=== PATIENT | male | born 1985 | race Caucasian/White ===

== ENCOUNTER 2022-05-05 17:08 | Inpatient (IN) ==
--- NOTE | 2022-05-05 17:23 | ED Triage Note ---
Date of Service May 05, 2022 History of Present Illness This patient was briefly evaluated while in triage. An abbreviated physical exam was performed. This patient is a 36-year-old Male who presents to the ED for evaluation of HTN, sent by Dr. Alcaraz high blood pressure, had echo at [facility] and was sent by cards due to elevated blood pressure no CP, no SOB taking lisinopril and HCTZ Physical Exam GENERAL: NAD, hypertensive CARDIOVASCULAR: RRR RESPIRATORY: CTA ABDOMEN: BS x 4. Nontender to palpation. Initial orders for labs and / or imaging were placed and patient was placed in the waiting area until a bed is available. Please see further documentation for the full ED course. MDM / Impression Impression Impression: Hypertensive urgency, Elevated troponin I level, LVH (left ventricular hypertrophy), Abnormal EKG
[2022-05-05] MEDS ORDERED: METOPROLOL TARTRATE 1 MG/ML VIAL IV STA (18:19)
--- NOTE | 2022-05-05 18:28 | Emergency Department Note ---
Impression & Plan Hypertensive urgency, Elevated troponin I level, LVH (left ventricular hypertrophy), Abnormal EKG ED Provider Note NAME: TRISHA ELISE AGE: 36 SEX: M : 1985 ARRIVES VIA: Walk-In INFORMANT: Patient, ED PROVIDER(S): Trisha Berger DO CHIEF COMPLAINT: Hypertensive urgency HPI: The patient is a 36-year-old male who does of a history of hypertension who presented to the emergency department for an evaluation of elevated blood pressure. The patient was seen by his primary hat finisher. At that time he was found to have a very elevated blood pressure. He was sent to the emergency department for further evaluation. At this time the patient denies having any chest pain or difficulty breathing. He notices no swelling in his legs. He denies having any back pain. He states he takes 2 different blood pressure medications and he has been compliant with his outpatient medication regimen. The patient currently takes metformin lisinopril HCTZ and omeprazole. ROS: See above HPI for pertinent positives & negatives. A total of 10 systems reviewed and were otherwise negative. PAST MEDICAL HISTORY: See Below PAST SURGICAL HISTORY: See Below FAMILY HISTORY: See Below SOCIAL HISTORY: See Below HOME MEDICATIONS: See Below ALLERGIES: See Below VITALS: See Below PHYSICAL EXAMINATION: GENERAL: Patient is awake alert in no acute distress patient is resting comfortably and showing no signs of anxiety EYES: The conjunctivae are clear. The pupils are round and reactive. EARS, NOSE, MOUTH AND THROAT: The nose is without any evidence of any deformity. NECK: The neck is nontender and supple. RESPIRATORY: Normal respiratory effort is noted there is no evidence of wheezing rhonchi or rales CARDIOVASCULAR: Regular rate and rhythm noted there no murmurs rubs or gallops normal S1 normal S2. GASTROINTESTINAL: The abdomen is soft. Abdomen is nontender. MUSCULOSKELETAL/EXTREMITIES: There is no evidence of gross deformity full range of motion is noted in the hips and shoulders. SKIN: There is no obvious evidence of any rash. There are no petechiae, pallor or cyanosis noted. NEUROLOGIC: Patient is awake alert and oriented x3 MEDICAL DECISION MAKING: The patient is a 36-year-old male who has a history of hypertension who presented to the emergency department for an evaluation of elevated blood pressure. The patient's had accelerated blood pressure elevation of the course of the last 24 hours. The patient was seen by his hat finisher. He had an echocardiogram. He was noted to have worsening concentric LVH and some findings were worrisome so the patient was sent to the emergency department by his hat finisher for further evaluation as well as blood pressure control. He was given multiple doses of IV beta-blockers in the emergency department. I discussed the patient's laboratory and radiographic studies with him. He was found to have a mild elevation in his high-sensitivity troponin. For this reason I discussed this case with the on-call [facility]. They have agreed to evaluate the patient in the emergency department for further management and disposition. Triage Nursing notes reviewed. Prior medical records reviewed Vital Signs: reviewed and remarkable for elevated blood pressure. Differential diagnosis: Benign hypertension, hypertensive emergency, cardiovascular pathology, toxicologic, pheochromocytoma, electrolyte abnormality, renal disease, endorgan damage, as well as other pathologies. ER treatment provided: See below Diagnostics interpreted by me: ECG: EKG was obtained in the emergency department. My interpretation is normal sinus rhythm at 91 bpm. There is no ectopy. LVH was suggested by voltage criteria. There is diffuse ST depressions noted. This was compared to a trac ing from February 23, 2014. The LVH does appear to be increased compared to the previous tracing. Cardiac Monitoring: An order was placed for continuous cardiac monitoring. The monitor shows a rate of 92 bpm with sinus rhythm. Laboratory studies: As stated above and show below. Imaging studies: See below. Radiographic imaging was reviewed by myself Consultation(s): I discussed this case with Dr. Whitfield who is on-call for the [facility] group. ED COURSE: Procedures: none Critical Care: I have personally spent greater than 45 minutes of critical care time in the direct management of this patient. This includes bedside care, interpretation of diagnostic studies, and testing, discussion with consultants, patient, and fa [facility] members, and other required patient management activities. This 45 minutes is in excess of all separately billable procedures. Past Med/Surg History Medical History HTN (hypertension) Surgical History No pertinent past surgical history Social History Smoking Status: Never smoker Preferred Language: Sinhala Feels Safe at Home: Yes Allergies Allergies Allergy/AdvReac Type Severity Reaction Status Date / Time No Known Allergies Verified 05/05/22 19:44 Home Meds Home Medications Medication Instructions Recorded Confirmed famotidine 20 mg tablet 20 mg PO DAILY PRN 05/05/22 05/05/22 INDIGESTION/HEARTBURN fluticasone propionate 50 2 spray intranasal DAILY PRN 05/05/22 05/05/22 mcg/actuation nasal Congestion spray,suspension hydrochlorothiazide 25 mg tablet 25 mg PO DAILY 05/05/22 05/05/22 lisinopril 20 mg tablet 20 mg PO DAILY 05/05/22 05/05/22 metformin 500 mg tablet 500 mg PO BID 05/05/22 05/05/22 Results & Data (ED) Vital Signs Vital Signs - 24 hr 05/05/22 17:21 05/05/22 18:25 05/05/22 18:21 Temperature 36.5 C Temperature Source Temporal Artery Scan Pulse Rate 103 H 99 H 91 H Pulse Rate from SpO2 Sensor Respiratory Rate 20 Respiratory Effort / Characteristics Non-Labored Spontaneous Respiratory Depth Normal Respiratory Pattern Regular Blood Pressure 233/147 H 233/147 H Blood Pressure Mean 175 Blood Pressure Position Sitting Pulse Oximetry 96 Oxygen Delivery Method Room Air Sepsis Recent Fever Within 48 Hours No Sepsis New/Unexplained Change in Mental Status No Sepsis Action Taken by Nursing No Action Required 05/05/22 18:21 05/05/22 18:30 05/05/22 18:31 Temperature Temperature Source Pulse Rate 84 77 82 Pulse Rate from SpO2 Sensor 85 85 82 Respiratory Rate 17 Respiratory Effort / Characteristics Respiratory Depth Respiratory Pattern Blood Pressure Blood Pressure Mean Blood Pressure Position Pulse Oximetry 96 96 96 Oxygen Delivery Method Sepsis Recent Fever Within 48 Hours Sepsis New/Unexplained Change in Mental Status Sepsis Action Taken by Nursing 05/05/22 18:31 05/05/22 19:00 05/05/22 19:11 Temperature Temperature Source Pulse Rate 84 Pulse Rate from SpO2 Sensor 84 Respiratory Rate Respiratory Effort / Characteristics Respiratory Depth Respiratory Pattern Blood Pressure 255/132 H Blood Pressure Mean 173 201 Blood Pressure Position Pulse Oximetry 96 Oxygen Delivery Method Sepsis Recent Fever Within 48 Hours Sepsis New/Unexplained Change in Mental Status Sepsis Action Taken by Nursing 05/05/22 19:11 05/05/22 19:27 05/05/22 19:27 Temperature Temperature Source Pulse Rate 87 79 Pulse Rate from SpO2 Sensor Respiratory Rate 16 15 Respiratory Effort / Characteristics Respiratory Depth Respiratory Pattern Blood Pressure 230/134 H Blood Pressure Mean 166 Blood Pressure Position Pulse Oximetry Oxygen Delivery Method Sepsis Recent Fever Within 48 Hours Sepsis New/Unexplained Change in Mental Status Sepsis Action Taken by Nursing 05/05/22 19:30 05/05/22 19:30 05/05/22 20:00 Temperature Temperature Source Pulse Rate 80 84 Pulse Rate from SpO2 Sensor Respiratory Rate 13 17 Respiratory Effort / Characteristics Respiratory Depth Respiratory Pattern Blood Pressure 245/139 H Blood Pressure Mean 174 Blood Pressure Position Pulse Oximetry Oxygen Delivery Method Sepsis Recent Fever Within 48 Hours Sepsis New/Unexplained Change in Mental Status Sepsis Action Taken by Nursing 05/05/22 20:14 05/05/22 20:14 05/05/22 20:30 Temperature Temperature Source Pulse Rate 87 89 Pulse Rate from SpO2 Sensor Respiratory Rate 16 12 Respiratory Effort / Characteristics Respiratory Depth Respiratory Pattern Blood Pressure 240/143 H Blood Pressure Mean 175 Blood Pressure Position Pulse Oximetry Oxygen Delivery Method Sepsis Recent Fever Within 48 Hours Sepsis New/Unexplained Change in Mental Status Sepsis Action Taken by Nursing 05/05/22 20:57 05/05/22 20:57 05/05/22 21:00 Temperature Temperature Source Pulse Rate 86 Pulse Rate from SpO2 Sensor Respiratory Rate 13 Respiratory Effort / Characteristics Respiratory Depth Respiratory Pattern Blood Pressure 240/142 H 260/143 H Blood Pressure Mean 174 182 Blood Pressure Position Pulse Oximetry Oxygen Delivery Method Sepsis Recent Fever Within 48 Hours Sepsis New/Unexplained Change in Mental Status Sepsis Action Taken by Nursing 05/05/22 21:00 Temperature Temperature Source Pulse Rate 92 H Pulse Rate from SpO2 Sensor Respiratory Rate 17 Respiratory Effort / Characteristics Respiratory Depth Respiratory Pattern Blood Pressure Blood Pressure Mean Blood Pressure Position Pulse Oximetry Oxygen Delivery Method Sepsis Recent Fever Within 48 Hours Sepsis New/Unexplained Change in Mental Status Sepsis Action Taken by [facility] Medications Current Medication List: was personally reviewed by me Laboratory Data Attestation: I reviewed the patient's lab results. 05/05/22 17:59 05/05/22 17:59 Lab Results 05/05/22 05/05/22 05/05/22 Range/Units 17:59 17:59 19:07 WBC 11.79 H (4.8-10.8) K/ul RBC 5.99 (4.70-6.10) M/uL Hgb 15.4 (14.0-18.0) g/dl Hct 47.0 (42.0-52.0) % MCV 78.5 L (80.0-100.0) fL MCH 25.7 (25.0-34.0) pg MCHC 32.8 (32.0-36.0) g/dL RDW Std Deviation 37.2 (36.4-46.3) fL RDW Coeff of Jorge Luis 13.1 (11.5-14.5) % Plt Count 367 (130-400) K/uL MPV 9.3 L (9.4-12.4) fL Immature Gran % (Auto) 0.4 % Neut % (Auto) 71.5 % Lymph % (Auto) 16.7 % [place] % (Auto) 8.3 % Eos % (Auto) 2.3 % Baso % (Auto) 0.8 % Neut # (Auto) 8.43 H (1.40-6.50) K/uL Lymph # (Auto) 1.97 (1.2-3.4) K/uL [place] # (Auto) 0.98 H (0.11-0.59) K/uL Eos # (Auto) 0.27 (0-0.50) K/uL Baso # (Auto) 0.09 (0-0.2) K/uL Immature Gran # (Auto) 0.05 (0.01-0.20) K/uL Sodium 136 (136-145) mmol/L Potassium 3.7 (3.5-5.1) mmol/L Chloride 101 (98-107) mmol/L Carbon Dioxide 27 (21-32) mmol/L Anion Gap 8 (3-11) BUN 15 (6-23) mg/dl Creatinine 0.86 (0.6-1.4) mg/dl Est Cr Clr Drug Dosing 197.4 ml/min Est GFR ( Amer) 129.3 ml/min Est GFR (Non-Af Amer) 111.6 ml/min BUN/Creatinine Ratio 17.4 (10-20) Glucose 143 H (70-99(Fasting)) mg/dl Calcium 9.5 (8.5-10.1) mg/dl Total Bilirubin 0.5 (0.2-1.0) mg/dl AST 13 (13-39) U/L ALT 17 (7-52) U/L Alkaline Phosphatase 71 (34-104) U/L Troponin I High Sens 38.0 H (0-20) pg/ml Total Protein 8.6 H (6.0-8.3) gm/dl Albumin 4.3 (3.4-5.0) gm/dl Globulin 4.3 H (2.5-4.0) gm/dl Albumin/Globulin Ratio 1.0 (0.9-2) SARS-CoV-2, RNA, NAAT NEGATIVE (NEGATIVE) Administered Medications Nicardipine HCl 25 mg/ Sodium (Chloride) 250 mls @ 75 mls/hr IV .Q3H20M JALIL; Protocol Stop: 06/04/22 20:59 Last Titration: 05/05/22 21:36 Dose: 7.5 mg/hr, 75 mls/hr Documented By: Admin: 05/05/22 21:20 Dose: 5 mg/hr, 50 mls/hr Documented By: ARS Co-signed By: JACQUELINE Discontinued Medications Hydralazine HCl (Hydralazine Hcl 20 Mg/Ml Vial) 10 mg IV NOW STA Stop: 05/05/22 20:26 Last Admin: 05/05/22 20:37 Dose: 10 mg Documented By: CHELSEA Labetalol HCl (Labetalol Hcl Iv 5 Mg/Ml 20ml) 10 mg IV NOW STA Stop: 05/05/22 19:04 Last Admin: 05/05/22 19:10 Dose: 10 mg Documented By: ARS Co-signed By: JACQUELINE Metoprolol Tartrate (Metoprolol Tartrate 1 Mg/Ml Vial) 5 mg IV NOW STA Stop: 05/05/22 18:20 Last Admin: 05/05/22 18:25 Dose: 5 mg Documented By: RSL Imaging Data Attestation: I personally reviewed and interpreted this imaging study as follows: My Impression: 1 view chest x-ray was obtained in the emergency department. My interpretation is no acute disease, no definite filtrate, no free air. Radiologist's Impression: Chest X-Ray 05/05/22 17:23 XR chest 1V portable HISTORY: Hypertension COMPARISON: Chest CTA 02/23/2014. FINDINGS: No pneumothorax. No pleural effusions. The cardiac silhouette is borderline enlarged. Interstitial prominence is likely technical due to the patient's body habitus. No focal lung consolidations to suggest a pneumonia. No evidence for pulmonary edema. IMPRESSION: Borderline cardiomegaly. Otherwise, no acute process within the chest. ACT 112: Negative or not required by law. Electronically signed by: Ajay Gutierrez M.D. 05/05/2022 7:07 PM Discharge Plan Visit Data Chief Complaint: Referred by Doctor Stated Complaint: REF BY DOC,ABNORMAL EKG? ED Provider: Trisha Berger Discharge Problem: Hypertensive urgency, Elevated troponin I level, LVH (left ventricular hypertrophy), Abnormal EKG Patient Disposition: Admitted As Inpatient Discharge Instructions Interventions: ED Discharge Assessment Last Done: 05/05/22 22:29
[2022-05-05 18:48] LABS: Hemoglobin 15.4 g/dl (14.0-18.0); Mean Corpuscular Hemoglobin 25.7 pg (25.0-34.0); Mean Corpuscular Hgb Conc 32.8 g/dL (32.0-36.0); Mean Corpuscular Volume 78.5 fL (80.0-100.0); Mean Platelet Volume 9.3 fL (9.4-12.4); Platelet Count 367 K/uL (130-400); RDW Coefficient of Variation 13.1 % (11.5-14.5); RDW Standard Deviation 37.2 fL (36.4-46.3); Red Blood Count 5.99 M/uL (4.70-6.10); White Blood Count 11.79 K/ul (4.8-10.8)
[2022-05-05 18:50] LABS: Albumin Level 4.3 gm/dl (3.4-5.0); Bilirubin,Total 0.5 mg/dl (0.2-1.0); Calcium 9.5 mg/dl (8.5-10.1); Potassium 3.7 mmol/L (3.5-5.1)
[2022-05-05 18:56] LABS: BUN Creatinine Ratio 17.4 (10-20); Creatinine Clr Calc Pharmacy 197.4 ml/min; Est GFR (African American) 129.3 ml/min; Est GFR (Non-African American) 111.6 ml/min; Globulin 4.3 gm/dl (2.5-4.0); Total Protein 8.6 gm/dl (6.0-8.3)
[2022-05-05] MEDS ORDERED: LABETALOL HCL IV 5 MG/ML 20ML IV STA (19:03)
--- NOTE | 2022-05-05 19:09 | XRay Report ---
XR chest 1V portable HISTORY: Hypertension COMPARISON: Chest CTA 02/23/2014. FINDINGS: No pneumothorax. No pleural effusions. The cardiac silhouette is borderline enlarged. Inter stitial prominence is likely technical due to the patient's body habitus. No focal lung consolidation s to suggest a pneumonia. No evidence for pulmonary edema. IMPRESSION: Borderline cardiomegaly. Otherwise, no acute process within the chest. ACT 112: Negative or not required by law. Electronically signed by: Ajay Gutierrez M.D. 05/05/2022 7:07 PM
[2022-05-05 19:14] LABS: Basophils # (auto) 0.09 K/uL (0-0.2); Basophils % (auto) 0.8 %; Eosinophils # (auto) 0.27 K/uL (0-0.50); Eosinophils % (auto) 2.3 %; Immature Granulocytes # (auto) 0.05 K/uL (0.01-0.20); Immature Granulocytes % (auto) 0.4 %; Lymphocytes # (auto) 1.97 K/uL (1.2-3.4); Lymphocytes % (auto) 16.7 %; Monocytes # (auto) 0.98 K/uL (0.11-0.59); Monocytes % (auto) 8.3 %; Neutrophils # (auto) 8.43 K/uL (1.40-6.50); Neutrophils % (auto) 71.5 %
[2022-05-05] MEDS ORDERED: hydrALAZINE HCL 20 MG/ML VIAL IV STA (20:25)
[2022-05-05] MEDS ORDERED: STAT IV Infusion **Titration per Protocol STA (20:59)
[2022-05-05] MEDS: niCARdipine 25 MG in SODIUM CHLORIDE 0.9% 240 ML IV SCH (21:20)
[2022-05-05] MEDS ORDERED: CARBOHYDRATES FOR HYPOGLYCEMIA PO PRN (22:40)
[2022-05-05] MEDS ORDERED: GLUCAGON FOR INJ 1 MG VIAL SQ PRN (22:40)
[2022-05-05] MEDS ORDERED: DEXTROSE 50% 50 ML SYRINGE IV PRN (22:40)
[2022-05-05] MEDS ORDERED: GLUCOSE 10 TAB/TUBE PO PRN (22:40)
[2022-05-05] MEDS ORDERED: FLUTICASONE PROPIONATE NA SPR 16 GM BTL NAE PRN (22:40)
[2022-05-05] MEDS ORDERED: GLUCOSE 40% GEL 15 GM TUBE PO PRN (22:40)
--- NOTE | 2022-05-05 22:46 | History and Physical Report ---
DATE OF ADMISSION: 05/05/2022. CHIEF COMPLAINT: Hypertensive urgency. HISTORY OF PRESENT ILLNESS: A 36-year-old male with past medical history significant for type 2 diabetes, hypertension, obesity, history of presumed sleep apnea, presents with hypertensive urgency. The patient went to Cardiology office today for evaluation of hypertension, syncopal episode happened at end of February and left ventricular hypertrophy pattern on EKG. He had a headache and generalized feeling of the illness at the end of February when he had a brief loss of consciousness. After that he had headache for one more day and then he was fine. He went to family doctor. His lisinopril dose was increased from 5 to 20 mg on 03/24/2022. He is on hydrochlorothiazide 25 mg p.o. daily. Today at Cardiology office, echo was done, which showed normal EF, grade I diastolic dysfunction, no significant valvular pathology, left ventricular wall thickness moderately increased concentric hypertrophy, and his blood pressure was high in 248/132 and so he was advised to come to the ER. In the ER, his blood pressure was still elevated 240/140 even after a dose of Lopressor, labetalol and hydralazine. The patient is asymptomatic. Denies any chest pain, no shortness of breath, no cough, no fevers, no nausea, no abdominal pain. Normal bowel and bladder movements. Appetite is okay. No difficulty swallowing. No headache, no blurred visions, no runny nose, no sore throat, afebrile, resting comfortably, hemodynamically stable. He says with normal activities, he does not get any chest pain or shortness of breath. ALLERGIES: No known drug allergies. PAST MEDICAL HISTORY: As mentioned above. PAST SURGICAL HISTORY: Tonsillectomy, palatopharyngoplasty. MEDICATIONS: The patient is on famotidine 20 mg p.o. daily p.r.n., Flonase 2 sprays intranasal daily p.r.n., hydrochlorothiazide 25 mg p.o. daily, lisinopril 20 mg p.o. daily, metformin 500 mg p.o. b.i.d. FAMILY HISTORY: Significant for aunt has diabetes, maternal grandfather has heart disorder and hypertension. SOCIAL HISTORY: No smoking. Alcohol socially. No drug use. REVIEW OF SYSTEMS: As per HPI. Rest of review of systems is negative. PHYSICAL EXAMINATION: GENERAL: The patient is morbidly obese, not in acute distress. VITAL SIGNS: Temperature 36.5, pulse 86, respiratory rate 13, blood pressure 240/142, oxygen 96% on room air. HEENT: Pupils equal, round and reactive to light. Oral mucosa moist. NECK: No JVD, no neck masses. CARDIOVASCULAR: S1 and S2 heard. Regular rate and rhythm. No murmur, no gallop. RESPIRATORY SYSTEM: Normal AP diameter. No accessory muscle use. No wheezing or crackles. ABDOMEN: Soft, bowel sounds present, nontender, no distention. CENTRAL NERVOUS SYSTEM: Alert and oriented. Speech is clear. No facial droop. Obeys simple commands. Moves extremities. EXTREMITIES: No edema, no erythema. LABORATORY DATA: WBC 11.7, hemoglobin 15.4, hematocrit 47, platelets 367. Sodium 136, potassium 3.7, chloride 101, bicarbonate 27, BUN 15, creatinine 0.8, serum glucose 143, calcium 9.5, total bilirubin 0.5, AST 13, ALT 17, alkaline phosphatase 71. Troponin I high sensitivity 38. SARS-CoV-2 rapid test negative. IMAGING DATA: Chest x-ray, borderline cardiomegaly, no acute process. EKG: Normal sinus rhythm, rate of 91, no acute ST changes seen. ASSESSMENT AND PLAN: This is a 36-year-old male who presents with hypertensive urgency. 1. Hypertensive urgency. He is on lisinopril 20 mg, hydrochlorothiazide 25 mg p.o. daily, still the blood pressure is running very high with systolic in 240s and diastolic in 140s. It is not coming down even after the dose of Lopressor, labetalol and hydralazine. Starting him on a Cardene drip. Closely monitor in the ICU. Critical Care consult and also Cardiology consult. Will increase lisinopril to 40 mg for now and further recommendation as per Cardiology. 2. Morbid obesity: Needs counseling. The patient is scheduled for sleep study as outpatient. We will get a nocturnal pulse ox study while in the hospital. 3. History of diabetes: Hold metformin. We will place him on insulin sliding scale. Follow the blood sugars while in the hospital. 4. Deep venous thrombosis prophylaxis: Lovenox. DISPOSITION: Closely monitor in the ICU. Level 1 full code. Expect to discharge home and follow with family doctor. Job ID: [id number] [facility]
--- NOTE | 2022-05-05 23:05 | Critical Care Consultation ---
Date of Consultation May 05, 2022 Assessment & Plan (1) Hypertensive urgency: Impression: 36-year-old male presents to the ICU with hypertensive urgency, now requiring nicardipine drip for vasoactive titration. Neuro - [facility] ICU: Negative Cardiac - Hypertensive urgencyhistory of uncontrolled hypertension for which she is previously been managed outpatient with lisinopril and hydrochlorothiazide. Now presents with hypertrophy and initial blood pressure 240/140 -Patient was unresponsive to IV metoprolol, labetalol, and hydralazine in the ER and was started on nicardipine drip. Titrating for ideal blood pressure 1 80-200 for now -Restart oral antihypertensives tomorrow. P.o. amlodipine ordered for a.m. in addition. We will hopefully be able to titrate off nicardipine -Troponin 30, likely due to hypertrophy. We will continue to trend for now -No ST elevation on EKG, QTc 484 -Cardiology following, will follow up recs -Continuous monitoring on telemetry Respiratory - No history of pulmonary disease, lungs clear to auscultation. Continuous monitoring pulse ox GI - GERDcontinue famotidine Heart healthy diet RENAL/LYTES - Creatinine within normal limits, no electrolyte abnormalities. Continue to monitor routine BMPs - Strict I's and O's ENDO - DM type IIholding metformin in favor of sliding scale. Hemoglobin A1c pending HEME - H&H stable, monitor routine CBC ID - No indication for infectious process at this time LINES/IV ACCESS - Peripheral IVs DVT PROPHYLAXIS - SCDs, Lovenox Thank you for allowing us to participate in the care of this patient. Please refer to my attending physician's documentation for any further recommendations. (2) Elevated troponin I level: (3) LVH (left ventricular hypertrophy): (4) Abnormal EKG: History of Present Illness Attending Physician: Neeta Salvador, History of Present Illness Patient is a 36-year-old male with past medical history of HTN, diabetes type 2, GERD, and obesity who presented to the emergency department from cardiology clinic for hypertensive urgency. Patient was initially is seen in March by his primary care provider was found to be significantly hypertensive and had evidence of hypertrophy on EKG. His lisinopril and hydrochlorothiazide dose were increased and he was referred to cardiology for an echo. In clinic patient was found to have blood pressure 248/132 and he was sent to the emergency department. Patient arrived to the emergency department asymptomatic with elevated blood pressure of 240/140. He had a mildly elevated troponin of 30, but was otherwise asymptomatic with normal lab work. Chest x-ray did show mild cardiomegaly. He was given IV metoprolol, labetalol, and hydralazine which did not improve his blood pressure and he was started on nicardipine drip. Patient now transferred to the ICU for further management at this time. On arrival to the ICU the patient is alert and oriented without acute distress. He is currently maintaining oxygen saturation on room air without labored breathing. He denies headache, dizziness, recent illness or fevers, chest pain or shortness of breath, cough, palpitations, abdominal pain, nausea vomiting or diarrhea, swellings in hands or feet. Patient does report that he had an episode of syncope in February where he fainted at work but did not go to the hospital. He states that he has been taking his medications as prescribed. Goal for tonight is to maintain his blood pressure 1 80-200 on nicardipine drip. We will hopefully be able to restart oral medications tomorrow and wean drip off. Will manage in ICU for now. Allergies Allergy/AdvReac Type Severity Reaction Status Date / Time No Known Allergies Verified 05/05/22 19:44 Home Medications Medication Instructions Recorded Confirmed Type famotidine 20 mg tablet 20 mg PO DAILY PRN 05/05/22 05/05/22 History INDIGESTION/HEARTBURN fluticasone propionate 50 2 spray intranasal DAILY PRN 05/05/22 05/05/22 History mcg/actuation nasal Congestion spray,suspension hydrochlorothiazide 25 mg tablet 25 mg PO DAILY 05/05/22 05/05/22 History lisinopril 20 mg tablet 20 mg PO DAILY 05/05/22 05/05/22 History metformin 500 mg tablet 500 mg PO BID 05/05/22 05/05/22 History Patient History Medical History HTN (hypertension) Surgical History No pertinent past surgical history Social History Smoking Status: Never smoker Do You Dip or Chew Tobacco: Yes; Hx Alcohol Use: No Hx Substance Use: No Preferred Language: [place] Communication Ability: Effective 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 Beliefs That Will Affect Care: None Current Living Situation: Family Current Living Situation Comment: lives with parents Feels Safe at Home: Yes Safety Concerns: Feels Safe At This Time Assistive Devices: None Review of Systems Review of Systems: All systems reviewed & are unremarkable except as noted in HPI & below Physical Exam Constitutional: WD/WN, vitals as above + obese, cooperative and comfortable; no acute distress Eyes: PERRL, conjunctivae normal, anicteric sclerae ENMT: external ear and nose normal, oropharynx normal Neck: trachea midline, no thyromegaly Respiratory: normal respiratory effort, lungs clear to auscultation Cardiovascular: RRR, no murmur, no edema Heart Sounds: normal S1 and normal S2 Gastrointestinal (Abdomen): normal bowel sounds, soft, nontender, no hepatosplenomegaly Musculoskeletal: no cyanosis or clubbing, extremities motor strength 5/5 Skin: no rashes, warm and dry Neurologic: PERRL, EOMI, accommodation nl, no face palsy, no dysarthria Psychiatric: A+Ox3, euthymic affect Results & Data Results & Data ([facility] [place]) Vital Signs (Past 12 Hours) Vital Signs Temp Pulse Resp BP BP Pulse Ox O2 Del Method 05/05/22 22:29 Room Air 05/05/22 21:00 92 H 17 05/05/22 21:00 260/143 H 05/05/22 21:41 230/130 H 05/05/22 21:55 210/110 H 05/05/22 20:57 86 13 05/05/22 20:57 240/142 H 05/05/22 20:30 89 12 05/05/22 20:14 240/143 H 05/05/22 20:14 87 16 05/05/22 20:00 84 17 05/05/22 19:30 80 13 05/05/22 19:30 245/139 H 05/05/22 19:27 79 15 05/05/22 19:27 230/134 H 05/05/22 19:11 87 16 05/05/22 19:00 84 96 05/05/22 18:31 255/132 H 05/05/22 18:31 82 96 05/05/22 18:30 77 96 05/05/22 18:21 84 17 96 05/05/22 18:21 91 H 05/05/22 18:25 99 H 233/147 H 05/05/22 17:21 36.5 C 103 H 20 233/147 H 96 Room Air Coding Level of Care Code 92645 IN/OBS CONSULT LVL 3,45M Diagnoses Hypertensive urgency I16.0 Elevated troponin I level R77.8 LVH (left ventricular hypertrophy) I51.7 Abnormal EKG R94.31 Time Spent (min) 47
[2022-05-05] MEDS ORDERED: PNEUMOCOCCAL POLYSACCHARIDES 25 MCG/0.5 ML VIAL/SYR IM ONE (23:54)
[2022-05-06] MEDS: ENOXAPARIN INJ 40 MG/0.4 ML SYR SQ SCH ×3 (00:45→20:32)
[2022-05-06 01:15] LABS: Appearance Urine Clear (Clear); Bacteria Urine Automated Negative (Negative); Bilirubin Urine Negative (Negative); Blood Urine Negative (Negative); Cast Urine Automated 0 /lpf (0-5); Color Urine Yellow; Glucose Urine UA Negative (Negative); Ketones Urine Negative (Negative); Leukocyte Esterase Urine Negative (Negative); Nitrite Urine Negative (Negative); RBC Urine Automated 0-4 /hpf (0-4); Specific Gravity Urine 1.012 (1.000-1.030); Urobilinogen Urine Negative (Negative); pH Urine 7.5 (4.5-7.5)
[2022-05-06 01:32] LABS: Amphetamines+Metham, Urine Neg (Neg); Barbiturates, Urine Neg (Neg); Benzodiazepine, Urine Neg (Neg); Cocaine, Urine Neg (Neg); MDMA (Ecstacy), Urine Neg (Neg); Methadone, Urine Neg (Neg); Opiate, Urine Neg (Neg); Phencyclidine, Urine Neg (Neg)
[2022-05-06 01:50] LABS: Protein Urine 1+ (Negative)
[2022-05-06 06:21] LABS: Basophils # (auto) 0.11 K/uL (0-0.2); Basophils % (auto) 0.9 %; Eosinophils # (auto) 0.26 K/uL (0-0.50); Hematocrit (blood only) 43.6 % (42.0-52.0); Hemoglobin 14.2 g/dl (14.0-18.0); Immature Granulocytes # (auto) 0.05 K/uL (0.01-0.20); Immature Granulocytes % (auto) 0.4 %; Lymphocytes # (auto) 2.65 K/uL (1.2-3.4); Lymphocytes % (auto) 20.7 %; Mean Corpuscular Hemoglobin 25.9 pg (25.0-34.0); Mean Corpuscular Hgb Conc 32.6 g/dL (32.0-36.0); Mean Corpuscular Volume 79.6 fL (80.0-100.0); Mean Platelet Volume 9.3 fL (9.4-12.4); Monocytes # (auto) 1.04 K/uL (0.11-0.59); Monocytes % (auto) 8.1 %; Neutrophils # (auto) 8.67 K/uL (1.40-6.50); Neutrophils % (auto) 67.9 %; Platelet Count 377 K/uL (130-400); RDW Coefficient of Variation 13.3 % (11.5-14.5); RDW Standard Deviation 38.1 fL (36.4-46.3); Red Blood Count 5.48 M/uL (4.70-6.10); White Blood Count 12.78 K/ul (4.8-10.8)
[2022-05-06 06:35] LABS: BUN Creatinine Ratio 14.8 (10-20); Calcium 8.8 mg/dl (8.5-10.1); Creatinine Clr Calc Pharmacy 191.6 ml/min; Est GFR (African American) 128.1 ml/min; Est GFR (Non-African American) 110.5 ml/min; Magnesium 1.9 mg/dl (1.7-2.4); Potassium 3.6 mmol/L (3.5-5.1)
[2022-05-06 06:52] LABS: Troponin I High Sensitivity 41.5 pg/ml (0-20)
[2022-05-06 07:01] LABS: Thyroid Stimulating Hormone 5.659 uIu/ml (0.300-4.500)
[2022-05-06 07:09] LABS: BUN Creatinine Ratio 14.6 (10-20); Creatinine Clr Calc Pharmacy 189.4 ml/min; Est GFR (African American) 127.5 ml/min; Phosphorus 4.1 mg/dl (2.5-4.9); Potassium 3.6 mmol/L (3.5-5.1)
[2022-05-06] MEDS ORDERED: ICU Protocol for HYPERglycemia SCH (07:30)
[2022-05-06] MEDS: INSULIN ASPART PER UNIT SC SCH ×4 (07:49→20:33)
[2022-05-06] MEDS: carvediloL 6.25 MG TAB PO SCH ×2 (08:59→20:31)
[2022-05-06] MEDS: lisinopril 40 MG TAB PO SCH (08:59)
[2022-05-06] MEDS: hydroCHLOROthiazide 25 MG TAB PO SCH (09:00)
[2022-05-06] MEDS ORDERED: amLODIPine BESYLATE 5 MG TAB PO SCH (09:00)
--- NOTE | 2022-05-06 09:22 | Critical Care Progress Note ---
Date of Service May 06, 2022 Assessment & Plan (1) Hypertensive urgency: Plan: Impression: 36-year-old male presents to the ICU with hypertensive urgency, now requiring nicardipine drip for vasoactive titration. Neuro - [facility] ICU: Negative Cardiac - Hypertensive urgency -Reviewed cardiology consultation -Improvement in blood pressures Respiratory - No history of pulmonary disease, lungs clear to auscultation. Continuous monitoring pulse ox GI - GERDcontinue famotidine Heart healthy diet RENAL/LYTES - Creatinine within normal limits, no electrolyte abnormalities. Continue to monitor routine BMPs - Strict I's and O's ENDO - DM type IIholding metformin in favor of sliding scale. Hemoglobin A1c pending HEME - H&H stable, monitor routine CBC ID - No indication for infectious process at this time LINES/IV ACCESS - Peripheral IVs DVT PROPHYLAXIS - SCDs, Lovenox Stable for downgrade out of ICU. (2) Elevated troponin I level: (3) LVH (left ventricular hypertrophy): (4) Abnormal EKG: Admission and Anticipated Discharge Date Admission Date: May 05, 2022 Subjective Feels okay, no chest pain no shortness of breath. Was hoping to be discharged out of hospital soon Review of Systems Review of Systems: As per the HPI Physical Exam Physical Exam: General: Alert. nontoxic. Skin: Warm, dry, Head: Atraumatic Ears, nose, mouth and throat: airway patent Cardiovascular: Normal peripheral perfusion Respiratory: no respiratory distress Gastrointestinal: Non distended Musculoskeletal: No deformity Results & Data Results & Data ([facility]) Vital Signs (Past 12 Hours) Vital Signs Temp Pulse Pulse Resp BP BP Pulse Ox 05/06/22 08:00 63 05/06/22 06:00 81 14 149/108 H 96 05/06/22 05:00 84 16 158/108 H 95 05/06/22 04:00 36.7 C 79 24 148/96 H 95 05/06/22 03:00 82 14 156/89 H 92 05/06/22 02:00 85 20 151/99 H 93 05/06/22 01:00 93 H 24 191/117 H 96 05/06/22 00:00 36.6 C 92 H 18 161/101 H 96 05/05/22 23:00 96 H 15 140/102 H 94 05/05/22 23:46 36.6 C 93 H 20 183/120 H 95 05/05/22 22:29 05/05/22 21:41 230/130 H 05/05/22 21:55 210/110 H O2 Del Method 05/06/22 08:00 05/06/22 06:00 Room Air 05/06/22 05:00 Room Air 05/06/22 04:00 Room Air 05/06/22 03:00 Room Air 05/06/22 02:00 Room Air 05/06/22 01:00 Room Air 05/06/22 00:00 Room Air 05/05/22 23:00 Room Air 05/05/22 23:46 Room Air 05/05/22 22:29 Room Air 05/05/22 21:41 05/05/22 21:55 Critical Care Results & Data Vital Signs (Past 12 Hours) Vital Signs Temp Pulse Resp BP Pulse Ox O2 Del Method 05/06/22 14:00 76 13 95 Room Air 05/06/22 14:00 140/88 05/06/22 13:30 129/90 05/06/22 13:30 78 16 96 Room Air 05/06/22 13:00 75 23 91 Room Air 05/06/22 13:00 136/83 05/06/22 12:30 78 17 95 Room Air 05/06/22 12:30 159/104 H 05/06/22 12:00 76 20 95 Room Air 05/06/22 12:00 179/104 H 05/06/22 11:30 72 16 95 Room Air 05/06/22 11:30 166/127 H 05/06/22 11:00 75 10 L 95 Room Air 05/06/22 11:00 200/110 H 05/06/22 10:41 91 H 22 94 Room Air 05/06/22 10:41 220/141 H 05/06/22 10:00 89 24 95 Room Air 05/06/22 10:00 201/121 H 05/06/22 09:45 78 14 97 Room Air 05/06/22 09:45 196/114 H 05/06/22 13:50 72 05/06/22 09:00 88 14 96 Room Air 05/06/22 09:00 199/120 H 05/06/22 08:00 86 15 92 Room Air 05/06/22 08:00 202/119 H 05/06/22 07:00 84 13 97 Room Air 05/06/22 07:00 152/112 H 05/06/22 08:00 63 05/06/22 06:00 81 14 149/108 H 96 Room Air 05/06/22 05:00 84 16 158/108 H 95 Room Air 05/06/22 04:00 36.7 C 79 24 148/96 H 95 Room Air 05/06/22 03:00 82 14 156/89 H 92 Room Air Lab & Micro Results (Past 24 Hours) RBC 5.48 M/uL (4.70-6.10) 05/06/22 WBC 12.78 K/ul (4.8-10.8) H 05/06/22 Hgb 14.2 g/dl (14.0-18.0) 05/06/22 Hct 43.6 % (42.0-52.0) 05/06/22 MCV 79.6 fL (80.0-100.0) L 05/06/22 MCH 25.9 pg (25.0-34.0) 05/06/22 MCHC 32.6 g/dL (32.0-36.0) 05/06/22 RDW Standard Deviation 38.1 fL (36.4-46.3) 05/06/22 RDW Coefficient of Variation 13.3 % (11.5-14.5) 05/06/22 Plt Count 377 K/uL (130-400) 05/06/22 MPV 9.3 fL (9.4-12.4) L 05/06/22 Neutrophils (%) (Auto) 67.9 % 05/06/22 Lymphocytes (%) (Auto) 20.7 % 05/06/22 Monocytes # (Auto) 1.04 K/uL (0.11-0.59) H 05/06/22 Eosinophils # (Auto) 0.26 K/uL (0-0.50) 05/06/22 Immature Granulocyte % (Auto) 0.4 % 05/06/22 Neutrophils # (Auto) 8.67 K/uL (1.40-6.50) H 05/06/22 Lymphocytes # (Auto) 2.65 K/uL (1.2-3.4) 05/06/22 Monocytes # (Auto) 1.04 K/uL (0.11-0.59) H 05/06/22 Eosinophils # (Auto) 0.26 K/uL (0-0.50) 05/06/22 Basophils # (Auto) 0.11 K/uL (0-0.2) 05/06/22 Immature Granulocyte # (Auto) 0.05 K/uL (0.01-0.20) 3 Na 136 mmol/L (136-145) 05/06/22 K 3.6 mmol/L (3.5-5.1) 05/06/22 Cl 98 mmol/L (98-107) 05/06/22 CO2 31 mmol/L (21-32) 05/06/22 Anion Gap 7 (3-11) 05/06/22 BUN 13 mg/dl (6-23) 05/06/22 Creatinine 0.89 mg/dl (0.6-1.4) 05/06/22 Estimated GFR ( Amer) 127.5 ml/min 05/06/22 Estimated GFR (Non-Af Amer) 110.0 ml/min 05/06/22 BUN/Creatinine Ratio 14.6 (10-20) 05/06/22 Glu 135 mg/dl (70-99(Fasting)) H 05/06/22 Ca 9.0 mg/dl (8.5-10.1) 05/06/22 Phosphorus Level 4.1 mg/dl (2.5-4.9) 05/06/22 Total Bilirubin 0.5 mg/dl (0.2-1.0) 05/05/22 AST 13 U/L (13-39) 05/05/22 ALT 17 U/L (7-52) 05/05/22 Alkaline Phosphatase 71 U/L (34-104) 05/05/22 TP 8.6 gm/dl (6.0-8.3) H 05/05/22 Albumin 4.3 gm/dl (3.4-5.0) 05/05/22 Globulin 4.3 gm/dl (2.5-4.0) H 05/05/22 Albumin/Globulin Ratio 1.0 (0.9-2) 05/05/22 Mg 1.9 mg/dl (1.7-2.4) 05/06/22 05:26 Calcium Level 9.0 mg/dl (8.5-10.1) 05/06/22 05:26 Diagnostic Findings (Past 24 Hours) Chest X-Ray 05/05/22 17:23 XR chest 1V portable HISTORY: Hypertension COMPARISON: Chest CTA 02/23/2014. FINDINGS: No pneumothorax. No pleural effusions. The cardiac silhouette is borderline enlarged. Interstitial prominence is likely technical due to the patient's body habitus. No focal lung consolidations to suggest a pneumonia. No evidence for pulmonary edema. IMPRESSION: Borderline cardiomegaly. Otherwise, no acute process within the chest. ACT 112: Negative or not required by law. Electronically signed by: Ajay Gutierrez M.D. 05/05/2022 7:07 PM I & O Totals 24 Hours 05/05/22 05/06/22 05/07/22 06:59 06:59 06:59 Intake Total 1198.333 / 1198.333 525 / 525 Output Total 1050 / 1050 1715 / 1715 Balance 148.333 / 148.333 -1190 / -1190 Cumulative 05/05/22 17:08 thru 05/06/22 13:43 Intake Total 1723.333 Output Total 2765 Balance -1041.667 RT Ventilator Mngmt (Last Documented) Ventilator Ordered Settings Respiratory Rate 13 05/06/22 14:00 Ventilator - PT Measurements Respiratory Rate 13 Coding Level of Care Code 17459 SUB INP/OBS CARE 1/25MIN Diagnoses Hypertensive urgency I16.0 Elevated troponin I level R77.8 LVH (left ventricular hypertrophy) I51.7 Abnormal EKG R94.31
--- NOTE | 2022-05-06 10:01 | Cardiology Consultation ---
Date of Consultation May 06, 2022 Assessment & Plan (1) Hypertensive urgency: (2) Elevated troponin I level: (3) LVH (left ventricular hypertrophy): Plan I believe the patient's troponins are elevated due to hypertensive urgency and stress. I do not believe this is due to ACS. At this point, I believe we are dealing with primary hypertension. Instead of using amlodipine which will cause lower extremity edema in a patient with this body habitus, I would favor starting him on carvedilol and titrating it to maintain his blood pressure. Unfortunately, he already received his morning dose of amlodipine but I will start the carvedilol at 6.25 mg twice daily. Consideration should be given for a work-up of sleep apnea as an etiology of the patient's hypertension. No additional cardiac work-up at this time. 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 He is morbidly obese and has a history of hypertension. In February he had a brief syncopal event after which he saw his PCP who increased his lisinopril due to hypertension. The patient was scheduled for an elective echocardiogram and when he presented yesterday to the clinic he was noted to be markedly hypertensive and referred to the hospital for admission. He was admitted to the ICU with hypertensive urgency and started on labetalol with initial good improvement in his hypertension. The labetalol was discontinued this morning as he was started on oral medications. The patient is noted to be hypertensive this morning again. No symptoms of headaches or chest pain. Denies shortness of breath or lateralizing signs. Allergies Allergy/AdvReac Type Severity Reaction Status Date / Time No Known Allergies Verified 05/05/22 19:44 Home Medications Medication Instructions Recorded Confirmed Type famotidine 20 mg tablet 20 mg PO DAILY PRN 05/05/22 05/05/22 History INDIGESTION/HEARTBURN fluticasone propionate 50 2 spray intranasal DAILY PRN 05/05/22 05/05/22 History mcg/actuation nasal Congestion spray,suspension hydrochlorothiazide 25 mg tablet 25 mg PO DAILY 05/05/22 05/05/22 History lisinopril 20 mg tablet 20 mg PO DAILY 05/05/22 05/05/22 History metformin 500 mg tablet 500 mg PO BID 05/05/22 05/05/22 History Patient History Medical History (Updated 05/06/22 @ 20:44 by Neeta Salvador DO) DMII (diabetes mellitus, type 2) HTN (hypertension) Morbid obesity JOSE RAUL (obstructive sleep apnea) Surgical History No pertinent past surgical history Social History Smoking Status: Never smoker Do You Dip or Chew Tobacco: Yes; Hx Alcohol Use: No Hx Substance Use: No Preferred Language: Stateless Communication Ability: Effective 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 All other 10 point review of systems are negative. Physical Exam Physical Exam: General: no acute distress and stated age Head: normocephalic, no masses, lesions, tenderness or abnormalities Eyes: conjunctiva are pink and non-injected, sclera clear Neck: supple, no adenopathy, no bruits, normal jugular venous pulse, no hepatojugular reflux Chest: normal shape and normal respiratory effort Lungs: clear to auscultation and percussion Cardiac Exam: - regular rate & rhythm, no murmurs gallops or rubs - normal S1, normal S2 Pulses: 2(+) throughout Abdomen: abdomen soft, non-tender, no abnormal masses and no hepatosplenomegaly Musculoskeletal: no gait disturbance, no joint inflammation, no deforming arthritis Extremities: no edema and no cyanosis Neuro: grossly normal exam Results & Data ([facility]) Vital Signs (Past 12 Hours) Vital Signs Temp Pulse Pulse Resp BP BP Pulse Ox 05/06/22 09:00 88 14 96 05/06/22 09:00 199/120 H 05/06/22 08:00 86 15 92 05/06/22 08:00 202/119 H 05/06/22 07:00 84 13 97 05/06/22 07:00 152/112 H 05/06/22 08:00 63 05/06/22 06:00 81 14 149/108 H 96 05/06/22 05:00 84 16 158/108 H 95 05/06/22 04:00 36.7 C 79 24 148/96 H 95 05/06/22 03:00 82 14 156/89 H 92 05/06/22 02:00 85 20 151/99 H 93 05/06/22 01:00 93 H 24 191/117 H 96 05/06/22 00:00 36.6 C 92 H 18 161/101 H 96 05/05/22 23:00 96 H 15 140/102 H 94 05/05/22 23:46 36.6 C 93 H 20 183/120 H 95 05/05/22 22:29 05/05/22 21:55 210/110 H O2 Del Method 05/06/22 09:00 Room Air 05/06/22 09:00 05/06/22 08:00 Room Air 05/06/22 08:00 05/06/22 07:00 Room Air 05/06/22 07:00 05/06/22 08:00 05/06/22 06:00 Room Air 05/06/22 05:00 Room Air 05/06/22 04:00 Room Air 05/06/22 03:00 Room Air 05/06/22 02:00 Room Air 05/06/22 01:00 Room Air 05/06/22 00:00 Room Air 05/05/22 23:00 Room Air 05/05/22 23:46 Room Air 05/05/22 22:29 Room Air 05/05/22 21:55 Laboratory Results Laboratory Results - last 24 hr 05/05/22 05/05/22 05/05/22 17:59 17:59 19:07 WBC 11.79 H RBC 5.99 Hgb 15.4 Hct 47.0 MCV 78.5 L MCH 25.7 MCHC 32.8 RDW Std Deviation 37.2 RDW Coeff of Jorge Luis 13.1 Plt Count 367 MPV 9.3 L Immature Gran % (Auto) 0.4 Neut % (Auto) 71.5 Lymph % (Auto) 16.7 [place] % (Auto) 8.3 Eos % (Auto) 2.3 Baso % (Auto) 0.8 Neut # (Auto) 8.43 H Lymph # (Auto) 1.97 [place] # (Auto) 0.98 H Eos # (Auto) 0.27 Baso # (Auto) 0.09 Immature Gran # (Auto) 0.05 Sodium 136 Potassium 3.7 Chloride 101 Carbon Dioxide 27 Anion Gap 8 BUN 15 Creatinine 0.86 Est Cr Clr Drug Dosing 197.4 Est GFR ( Amer) 129.3 Est GFR (Non-Af Amer) 111.6 BUN/Creatinine Ratio 17.4 Glucose 143 H POC Glucose Calcium 9.5 Phosphorus Magnesium Total Bilirubin 0.5 AST 13 ALT 17 Alkaline Phosphatase 71 Troponin I High Sens 38.0 H Total Protein 8.6 H Albumin 4.3 Globulin 4.3 H Albumin/Globulin Ratio 1.0 TSH Free T4 Urine Color Urine Appearance Urine pH Ur Specific [place] Urine Protein Urine Glucose (UA) Urine Ketones Urine Blood Urine Nitrite Urine Bilirubin Urine Urobilinogen Ur Leukocyte Esterase Urine WBC (Auto) Urine RBC (Auto) U Hyaline Cast (Auto) U Epithel Cells (Auto) Urine Bacteria (Auto) Nasal Screen MRSA (PCR) Urine Opiates Screen Ur Methadone, Qual Urine Barbiturates Ur Phencyclidine (PCP) U Amphetamin/Meth Scrn MDMA (Ecstasy) Screen U Benzodiazepines Scrn Ur Cocaine Metabolite U Marijuana (THC) Screen SARS-CoV-2, RNA, NAAT NEGATIVE 05/05/22 05/05/22 05/06/22 22:15 22:55 01:00 WBC RBC Hgb Hct MCV MCH MCHC RDW Std Deviation RDW Coeff of Jorge Luis Plt Count MPV Immature Gran % (Auto) Neut % (Auto) Lymph % (Auto) [place] % (Auto) Eos % (Auto) Baso % (Auto) Neut # (Auto) Lymph # (Auto) [place] # (Auto) Eos # (Auto) Baso # (Auto) Immature Gran # (Auto) Sodium Potassium Chloride Carbon Dioxide Anion Gap BUN Creatinine Est Cr Clr Drug Dosing Est GFR ( Amer) Est GFR (Non-Af Amer) BUN/Creatinine Ratio Glucose POC Glucose 142 H Calcium Phosphorus Magnesium Total Bilirubin AST ALT Alkaline Phosphatase Troponin I High Sens Total Protein Albumin Globulin Albumin/Globulin Ratio TSH Free T4 Urine Color Yellow Urine Appearance Clear Urine pH 7.5 Ur Specific [place] 1.012 Urine Protein 1+ H Urine Glucose (UA) Negative Urine Ketones Negative Urine Blood Negative Urine Nitrite Negative Urine Bilirubin Negative Urine Urobilinogen Negative Ur Leukocyte Esterase Negative Urine WBC (Auto) 1-5 Urine RBC (Auto) 0-4 U Hyaline Cast (Auto) 0 U Epithel Cells (Auto) 5-10 H Urine Bacteria (Auto) Negative Nasal Screen MRSA (PCR) Negative Urine Opiates Screen Ur Methadone, Qual Urine Barbiturates Ur Phencyclidine (PCP) U Amphetamin/Meth Scrn MDMA (Ecstasy) Screen U Benzodiazepines Scrn Ur Cocaine Metabolite U Marijuana (THC) Screen SARS-CoV-2, RNA, NAAT 05/06/22 05/06/22 05/06/22 01:00 05:26 05:26 WBC 12.78 H RBC 5.48 Hgb 14.2 Hct 43.6 MCV 79.6 L MCH 25.9 MCHC 32.6 RDW Std Deviation 38.1 RDW Coeff of Jorge Luis 13.3 Plt Count 377 MPV 9.3 L Immature Gran % (Auto) 0.4 Neut % (Auto) 67.9 Lymph % (Auto) 20.7 [place] % (Auto) 8.1 Eos % (Auto) 2.0 Baso % (Auto) 0.9 Neut # (Auto) 8.67 H Lymph # (Auto) 2.65 [place] # (Auto) 1.04 H Eos # (Auto) 0.26 Baso # (Auto) 0.11 Immature Gran # (Auto) 0.05 Sodium 135 L Potassium 3.6 Chloride 97 L Carbon Dioxide 32 Anion Gap 6 BUN 13 Creatinine 0.88 Est Cr Clr Drug Dosing 191.6 Est GFR ( Amer) 128.1 Est GFR (Non-Af Amer) 110.5 BUN/Creatinine Ratio 14.8 Glucose 136 H POC Glucose Calcium 8.8 Phosphorus Magnesium 1.9 Total Bilirubin AST ALT Alkaline Phosphatase Troponin I High Sens 41.5 H Total Protein Albumin Globulin Albumin/Globulin Ratio TSH Free T4 Urine Color Urine Appearance Urine pH Ur Specific [place] Urine Protein Urine Glucose (UA) Urine Ketones Urine Blood Urine Nitrite Urine Bilirubin Urine Urobilinogen Ur Leukocyte Esterase Urine WBC (Auto) Urine RBC (Auto) U Hyaline Cast (Auto) U Epithel Cells (Auto) Urine Bacteria (Auto) Nasal Screen MRSA (PCR) Urine Opiates Screen Neg Ur Methadone, Qual Neg Urine Barbiturates Neg Ur Phencyclidine (PCP) Neg U Amphetamin/Meth Scrn Neg MDMA (Ecstasy) Screen Neg U Benzodiazepines Scrn Neg Ur Cocaine Metabolite Neg U Marijuana (THC) Screen Neg SARS-CoV-2, RNA, NAAT 05/06/22 05/06/2223 05:26 05:26 07:39 WBC RBC Hgb Hct MCV MCH MCHC RDW Std Deviation RDW Coeff of Jorge Luis Plt Count MPV Immature Gran % (Auto) Neut % (Auto) Lymph % (Auto) [place] % (Auto) Eos % (Auto) Baso % (Auto) Neut # (Auto) Lymph # (Auto) [place] # (Auto) Eos # (Auto) Baso # (Auto) Immature Gran # (Auto) Sodium 136 Potassium 3.6 Chloride 98 Carbon Dioxide 31 Anion Gap 7 BUN 13 Creatinine 0.89 Est Cr Clr Drug Dosing 189.4 Est GFR ( Amer) 127.5 Est GFR (Non-Af Amer) 110.0 BUN/Creatinine Ratio 14.6 Glucose 135 H POC Glucose 161 H Calcium 9.0 Phosphorus 4.1 Magnesium Total Bilirubin AST ALT Alkaline Phosphatase Troponin I High Sens Total Protein Albumin Globulin Albumin/Globulin Ratio TSH 5.659 H Free T4 Pending Urine Color Urine Appearance Urine pH Ur Specific [place] Urine Protein Urine Glucose (UA) Urine Ketones Urine Blood Urine Nitrite Urine Bilirubin Urine Urobilinogen Ur Leukocyte Esterase Urine WBC (Auto) Urine RBC (Auto) U Hyaline Cast (Auto) U Epithel Cells (Auto) Urine Bacteria (Auto) Nasal Screen MRSA (PCR) Urine Opiates Screen Ur Methadone, Qual Urine Barbiturates Ur Phencyclidine (PCP) U Amphetamin/Meth Scrn MDMA (Ecstasy) Screen U Benzodiazepines Scrn Ur Cocaine Metabolite U Marijuana (THC) Screen SARS-CoV-2, RNA, NAAT Medications Administered Current Inpatient Medications Carvedilol (Carvedilol 6.25 Mg Tab) 6.25 mg PO BID [facility] Stop: 06/05/22 08:59 Last Admin: 05/06/22 08:59 Dose: 6.25 mg Dextrose (Dextrose 50% 50 Ml Syringe) 25 - 50 ml IV UD PRN; Protocol PRN Reason: Hypoglycemia Protocol Stop: 06/04/22 22:39 Enoxaparin Sodium (Enoxaparin Inj 40 Mg/0.4 Ml Syr) 40 mg SQ Q12 [facility] Stop: 06/04/22 22:59 Last Admin: 05/06/22 07:51 Dose: 40 mg Famotidine (Famotidine 20 Mg Tab) 20 mg PO DAILY PRN PRN Reason: INDIGESTION/HEARTBURN Stop: 06/04/22 22:39 Fluticasone Propionate (Fluticasone Propionate Na Spr 16 Gm Btl) 2 sprays ALEJANDRA DAILY PRN PRN Reason: Congestion Stop: 06/04/22 22:39 Glucagon (Glucagon For Inj 1 Mg Vial) 1 mg SQ UD PRN; Protocol PRN Reason: Hypoglycemia Protocol Stop: 06/04/22 22:39 Glucose (Glucose 10 Tab/Tube) 4 - 8 tab PO UD PRN; Protocol PRN Reason: Hypoglycemia Treatment Stop: 06/04/22 22:39 Glucose (Glucose 40% Gel 15 Gm Tube) 15 - 30 gm PO UD PRN; Protocol PRN Reason: Hypoglycemia Protocol Stop: 06/04/22 22:39 Hydrochlorothiazide (Hydrochlorothiazide 25 Mg Tab) 25 mg PO DAILY [facility] Stop: 06/05/22 08:59 Last Admin: 05/06/22 09:00 Dose: 25 mg Insulin Aspart (Insulin Aspart Per Unit) 0 units SC ACHS [facility] Stop: 06/05/22 07:29 Last Admin: 05/06/22 07:49 Dose: 5 units Lisinopril (Lisinopril 40 Mg Tab) 40 mg PO QAM [facility] Stop: 06/05/22 08:59 Last Admin: 05/06/22 08:59 Dose: 40 mg Miscellaneous (Carbohydrates For Hypoglycemia ) 15 - 30 gm PO UD PRN PRN Reason: Hypoglycemia Protocol Stop: 06/04/22 22:39
--- NOTE | 2022-05-06 15:40 | Hospitalist Progress Note ---
Date of Service May 06, 2022 Assessment & Plan (1) Hypertensive urgency: Plan: Off Cardene drip with blood pressure improved. Cardiology on board. Now that he is off Cardene we will downgrade him to PCU status. Continue HCTZ 25, lisinopril 40 and Coreg. Increased dose of Coreg to 12.5 twice daily with elevated evening blood pressures. Continue to titrate overnight. Also consider secondary work-up if not already performed as outpatient. (2) Elevated troponin I level: Plan: Elevated troponin likely due to hypertensive urgency and stress on the heart/demand ischemia. No evidence of ACS and no further cardiac cardiac work- up indicated. (3) LVH (left ventricular hypertrophy): Plan: Longstanding hypertension since he was 12 years old. (4) Morbid obesity: Plan: Consider Ozempic or other weight loss therapies versus surgery. Outpatient nutrition follow-up highly recommended. (5) DMII (diabetes mellitus, type 2): Plan: Recent A1c was 7.2 on March 17, 2022. This is above his goal. He continues on metformin twice daily. Defer to outpatient primary care doctor to titrate. (6) JOSE RAUL (obstructive sleep apnea): Plan: Patient reports a history of this but is not currently using CPAP. Has a sleep study lined up as an outpatient per his report. DVT prophylaxis-Lovenox Full code Disposition-to home when blood pressure is stabilized. Neeta Salvador DO [facility] Hospitalist Admission and Anticipated Discharge Date Admission Date: May 05, 2022 Subjective 36-year-old diabetic man with a history of hypertension from an early age presented with hypertensive urgency. He was admitted to the ICU and placed on a nicardipine drip. He was sent here from the cardiology office where he was having an echocardiogram revealing normal EF with no significant valvular pathology and LVH. His blood pressure was 248/132 and was 240/140 after Lopressor, labetalol and hydralazine. He was asymptomatic and remains that way today. Unknown secondary hypertension work-up in the past. Lisinopril was increased to 40 mg and cardiology added Coreg Review of Systems Review of Systems: All systems reviewed negative except as indicated above. Physical Exam Physical Exam: CONSTITUTIONAL: morbid obesity, vitals as above, generally well-appearing EYES: normal conjunctivae, no scleral icterus ENT: external ear and nose normal, MMM NECK: trachea midline RESPIRATORY: clear to auscultation bilaterally, no crackles, rales or wheezes, normal respiratory effort CARDIOVASCULAR: regular rate and rhythm, S1 and 2 heard without murmurs, gallops or rubs, no JVD, no peripheral edema CHEST: inspection of chest was normal GASTROINTESTINAL: soft, nontender, ND, no guarding MUSCULOSKELETAL: strength 5/5 throughout, head is normocephalic and atraumatic SKIN: warm and dry NEUROLOGIC: CN 2-12 grossly intact, no sensory deficit, normal cognition, normal speech, no tremor PSYCHIATRIC: alert cooperative and oriented to person, place and time. Results & Data Results & Data [facility]) Vital Signs (Past 12 Hours) Vital Signs Temp Pulse Resp BP Pulse Ox O2 Del Method 05/06/22 14:00 76 13 95 Room Air 05/06/22 14:00 140/88 05/06/22 13:30 129/90 05/06/22 13:30 78 16 96 Room Air 05/06/22 13:00 75 23 91 Room Air 05/06/22 13:00 136/83 05/06/22 12:30 78 17 95 Room Air 05/06/22 12:30 159/104 H 05/06/22 12:00 76 20 95 Room Air 05/06/22 12:00 179/104 H 05/06/22 11:30 72 16 95 Room Air 05/06/22 11:30 166/127 H 05/06/22 11:00 75 10 L 95 Room Air 05/06/22 11:00 200/110 H 05/06/22 10:41 91 H 22 94 Room Air 05/06/22 10:41 220/141 H 05/06/22 10:00 89 24 95 Room Air 05/06/22 10:00 201/121 H 05/06/22 09:45 78 14 97 Room Air 05/06/22 09:45 196/114 H 05/06/22 13:50 72 05/06/22 09:00 88 14 96 Room Air 05/06/22 09:00 199/120 H 05/06/22 08:00 86 15 92 Room Air 05/06/22 08:00 202/119 H 05/06/22 07:00 84 13 97 Room Air 05/06/22 07:00 152/112 H 05/06/22 08:00 63 05/06/22 06:00 81 14 149/108 H 96 Room Air 05/06/22 05:00 84 16 158/108 H 95 Room Air 05/06/22 04:00 36.7 C 79 24 148/96 H 95 Room Air Laboratory Results Short CBC 05/05/22 05/06/22 Range/Units 17:59 05:26 WBC 11.79 H 12.78 H (4.8-10.8) K/ul Hgb 15.4 14.2 (14.0-18.0) g/dl Hct 47.0 43.6 (42.0-52.0) % Plt Count 367 377 (130-400) K/uL BMP 05/05/22 05/06/22 05/06/22 17:59 05:26 05:26 Sodium 136 135 L 136 Potassium 3.7 3.6 3.6 Chloride 101 97 L 98 Carbon Dioxide 27 32 31 BUN 15 13 13 Creatinine 0.86 0.88 0.89 Glucose 143 H 136 H 135 H Calcium 9.5 8.8 9.0 Liver Function 05/05/22 Range/Units 17:59 Total Bilirubin 0.5 (0.2-1.0) mg/dl AST 13 (13-39) U/L ALT 17 (7-52) U/L Alkaline Phosphatase 71 (34-104) U/L Albumin 4.3 (3.4-5.0) gm/dl Urine 05/06/22 Range/Units 01:00 Urine Color Yellow Urine Appearance Clear (Clear) Urine pH 7.5 (4.5-7.5) Ur Specific [place] 1.012 (1.000-1.030) Urine Protein 1+ H (Negative) Urine Glucose (UA) Negative (Negative) Medications Administered Current Inpatient Medications Carvedilol (Carvedilol 6.25 Mg Tab) 6.25 mg PO BID [facility] Stop: 06/05/22 08:59 Last Admin: 05/06/22 08:59 Dose: 6.25 mg Dextrose (Dextrose 50% 50 Ml Syringe) 25 - 50 ml IV UD PRN; Protocol PRN Reason: Hypoglycemia Protocol Stop: 06/04/22 22:39 Enoxaparin Sodium (Enoxaparin Inj 40 Mg/0.4 Ml Syr) 40 mg SQ Q12 [facility] Stop: 06/04/22 22:59 Last Admin: 05/06/22 07:51 Dose: 40 mg Famotidine (Famotidine 20 Mg Tab) 20 mg PO DAILY PRN PRN Reason: INDIGESTION/HEARTBURN Stop: 06/04/22 22:39 Fluticasone Propionate (Fluticasone Propionate Na Spr 16 Gm Btl) 2 sprays ALEJANDRA DAILY PRN PRN Reason: Congestion Stop: 06/04/22 22:39 Glucagon (Glucagon For Inj 1 Mg Vial) 1 mg SQ UD PRN; Protocol PRN Reason: Hypoglycemia Protocol Stop: 06/04/22 22:39 Glucose (Glucose 10 Tab/Tube) 4 - 8 tab PO UD PRN; Protocol PRN Reason: Hypoglycemia Treatment Stop: 06/04/22 22:39 Glucose (Glucose 40% Gel 15 Gm Tube) 15 - 30 gm PO UD PRN; Protocol PRN Reason: Hypoglycemia Protocol Stop: 06/04/22 22:39 Hydrochlorothiazide (Hydrochlorothiazide 25 Mg Tab) 25 mg PO DAILY [facility] Stop: 06/05/22 08:59 Last Admin: 05/06/22 09:00 Dose: 25 mg Insulin Aspart (Insulin Aspart Per Unit) 0 units SC ACHS [facility] Stop: 06/05/22 07:29 Last Admin: 05/06/22 12:33 Dose: 6 units Lisinopril (Lisinopril 40 Mg Tab) 40 mg PO QAM [facility] Stop: 06/05/22 08:59 Last Admin: 05/06/22 08:59 Dose: 40 mg Miscellaneous (Carbohydrates For Hypoglycemia ) 15 - 30 gm PO UD PRN PRN Reason: Hypoglycemia Protocol Stop: 06/04/22 22:39
[2022-05-06 16:50] LABS: T4 Free Thyroxine 0.91 ng/dl (0.61-1.60)
[2022-05-06] MEDS: niCARdipine 25 MG in SODIUM CHLORIDE 0.9% 240 ML IV SCH (19:01)
[2022-05-06] MEDS ORDERED: carvediloL 6.25 MG TAB PO STA (20:40)
[2022-05-06] MEDS ORDERED: carvediloL 12.5 MG TAB PO SCH (21:00)
--- NOTE | 2022-05-07 04:31 | Electrocardiogram Report ---
Test Reason : Blood Pressure : / mmHG Vent. Rate : 091 BPM Atrial Rate : 091 BPM P-R Int : 154 ms QRS Dur : 120 ms QT Int : 394 ms P-R-T Axes : 022 -13 019 degrees QTc Int : 484 ms Normal sinus rhythm Septal infarct , age undetermined Prolonged QT Abnormal ECG When compared with ECG of 03-MAR-2014 21:05, QT has lengthened Confirmed by Tommy Lamas ([id number]) on 05/07/2022 4:30:36 AM Referred By: REFERRED SELF Confirmed By:Tommy Lamas
[2022-05-07 05:11] LABS: Basophils % (auto) 0.8 %; Eosinophils # (auto) 0.38 K/uL (0-0.50); Hematocrit (blood only) 42.6 % (42.0-52.0); Hemoglobin 13.8 g/dl (14.0-18.0); Immature Granulocytes # (auto) 0.08 K/uL (0.01-0.20); Immature Granulocytes % (auto) 0.6 %; Lymphocytes # (auto) 2.75 K/uL (1.2-3.4); Lymphocytes % (auto) 21.7 %; Mean Corpuscular Hemoglobin 25.9 pg (25.0-34.0); Mean Corpuscular Hgb Conc 32.4 g/dL (32.0-36.0); Mean Corpuscular Volume 79.9 fL (80.0-100.0); Mean Platelet Volume 9.4 fL (9.4-12.4); Monocytes # (auto) 1.25 K/uL (0.11-0.59); Monocytes % (auto) 9.9 %; Neutrophils # (auto) 8.13 K/uL (1.40-6.50); Platelet Count 352 K/uL (130-400); RDW Coefficient of Variation 13.7 % (11.5-14.5); RDW Standard Deviation 39.9 fL (36.4-46.3); Red Blood Count 5.33 M/uL (4.70-6.10); White Blood Count 12.69 K/ul (4.8-10.8)
[2022-05-07 05:29] LABS: BUN Creatinine Ratio 16.7 (10-20); Calcium 8.8 mg/dl (8.5-10.1); Est GFR (African American) 75.7 ml/min; Est GFR (Non-African American) 65.3 ml/min; Magnesium 2.2 mg/dl (1.7-2.4); Phosphorus 4.5 mg/dl (2.5-4.9); Potassium 3.7 mmol/L (3.5-5.1)
[2022-05-07 07:38] LABS: Estimated Average Glucose 157 mg/dl; Hemoglobin A1C 7.1 % (4.5-5.6)
[2022-05-07] MEDS: hydroCHLOROthiazide 25 MG TAB PO SCH (07:59)
[2022-05-07] MEDS: FAMOTIDINE 20 MG TAB PO PRN (08:00)
[2022-05-07] MEDS: ENOXAPARIN INJ 40 MG/0.4 ML SYR SQ SCH ×2 (08:00→20:33)
[2022-05-07] MEDS: lisinopril 40 MG TAB PO SCH (08:00)
[2022-05-07] MEDS: INSULIN ASPART PER UNIT SC SCH ×4 (08:12→21:00)
[2022-05-07] MEDS ORDERED: carvediloL 12.5 MG TAB PO SCH (09:00)
[2022-05-07] MEDS ORDERED: carvediloL 12.5 MG TAB PO ONE (10:36)
--- NOTE | 2022-05-07 10:42 | Cardiology Progress Note ---
Date of Service May 07, 2022 Assessment & Plan (1) Hypertensive urgency: (2) Elevated troponin I level: (3) LVH (left ventricular hypertrophy): Plan The patient had his carvedilol increased to 12.5 mg twice daily and he remains hypertensive. I am going to increase his carvedilol to 25 mg twice daily. Otherwise the patient is stable and doing well. Admission and Anticipated Discharge Date Admission Date: May 05, 2022 Subjective The patient had an uneventful night. Review of Systems Review of Systems: Review of Systems: See HPI for pertinent positives. All other 10 point review of systems are negative. Physical Exam Physical Exam: General: no acute distress and stated age Head: normocephalic, no masses, lesions, tenderness or abnormalities Eyes: conjunctiva are pink and non-injected, sclera clear Neck: supple, no adenopathy, no bruits, normal jugular venous pulse, no hepatojugular reflux Chest: normal shape and normal respiratory effort Lungs: clear to auscultation and percussion Cardiac Exam: - regular rate & rhythm, no murmurs gallops or rubs - normal S1, normal S2 Pulses: 2(+) throughout Abdomen: abdomen soft, non-tender, no abnormal masses and no hepatosplenomegaly Musculoskeletal: no gait disturbance, no joint inflammation, no deforming arthritis Extremities: no edema and no cyanosis Neuro: grossly normal exam Results & Data ([facility]) Vital Signs (Past 12 Hours) Vital Signs Temp Pulse Pulse Pulse Resp BP BP 05/07/22 10:28 149/88 H 05/07/22 10:28 68 15 05/07/22 10:00 67 16 05/07/22 08:00 73 13 05/07/22 07:59 159/107 H 05/07/22 08:56 36.9 C 05/07/22 06:00 56 L 16 05/07/22 06:00 135/87 05/07/22 05:00 56 L 14 05/07/22 03:37 63 05/07/22 04:20 36.8 C 63 14 134/89 05/07/22 04:00 63 14 05/07/22 04:00 134/89 05/07/22 03:00 66 18 05/07/22 02:00 68 18 05/07/22 02:00 122/72 05/07/22 01:00 62 23 05/07/22 01:41 61 05/07/22 00:00 71 19 05/07/22 00:00 36.8 C 118/82 05/06/22 23:00 61 19 05/07/22 00:00 64 05/06/22 22:47 68 Pulse Ox Pulse Ox O2 Del Method O2 Del Method 05/07/22 10:28 94 05/07/22 10:28 05/07/22 10:00 05/07/22 08:00 95 Room Air 05/07/22 07:59 05/07/22 08:56 05/07/22 06:00 98 05/07/22 06:00 05/07/22 05:00 93 05/07/22 03:37 93 Room Air 05/07/22 04:20 91 Room Air 05/07/22 04:00 91 05/07/22 04:00 05/07/22 03:00 93 05/07/22 02:00 91 05/07/22 02:00 05/07/22 01:00 92 05/07/22 01:41 94 Room Air 05/07/22 00:00 95 05/07/22 00:00 05/06/22 23:00 92 05/07/22 00:00 05/06/22 22:47 96 Room Air Laboratory Results Laboratory Results - last 24 hr 05/06/22 05/06/22 05/06/22 05:26 11:04 16:08 WBC RBC Hgb Hct MCV MCH MCHC RDW Std Deviation RDW Coeff of Jorge Luis Plt Count MPV Immature Gran % (Auto) Neut % (Auto) Lymph % (Auto) [place] % (Auto) Eos % (Auto) Baso % (Auto) Neut # (Auto) Lymph # (Auto) [place] # (Auto) Eos # (Auto) Baso # (Auto) Immature Gran # (Auto) Sodium Potassium Chloride Carbon Dioxide Anion Gap BUN Creatinine Est Cr Clr Drug Dosing Est GFR ( Amer) Est GFR (Non-Af Amer) BUN/Creatinine Ratio Glucose POC Glucose 148 H 188 H Estimat Average Glucose Hemoglobin A1c Calcium Phosphorus Magnesium Free T4 0.91 05/06/22 05/07/22 05/07/22 20:25 04:47 04:47 WBC RBC Hgb Hct MCV MCH MCHC RDW Std Deviation RDW Coeff of Jorge Luis Plt Count MPV Immature Gran % (Auto) Neut % (Auto) Lymph % (Auto) [place] % (Auto) Eos % (Auto) Baso % (Auto) Neut # (Auto) Lymph # (Auto) [place] # (Auto) Eos # (Auto) Baso # (Auto) Immature Gran # (Auto) Sodium 134 L Potassium 3.7 Chloride 98 Carbon Dioxide 30 Anion Gap 6 BUN 23 Creatinine 1.38 D Est Cr Clr Drug Dosing 122.0 Est GFR ( Amer) 75.7 Est GFR (Non-Af Amer) 65.3 BUN/Creatinine Ratio 16.7 Glucose 136 H POC Glucose 119 H Estimat Average Glucose 157 Hemoglobin A1c 7.1 H Calcium 8.8 Phosphorus 4.5 Magnesium 2.2 Free T4 05/07/22 04:47 WBC 12.69 H RBC 5.33 Hgb 13.8 L Hct 42.6 MCV 79.9 L MCH 25.9 MCHC 32.4 RDW Std Deviation 39.9 RDW Coeff of Jorge Luis 13.7 Plt Count 352 MPV 9.4 Immature Gran % (Auto) 0.6 Neut % (Auto) 64.0 Lymph % (Auto) 21.7 [place] % (Auto) 9.9 Eos % (Auto) 3.0 Baso % (Auto) 0.8 Neut # (Auto) 8.13 H Lymph # (Auto) 2.75 [place] # (Auto) 1.25 H Eos # (Auto) 0.38 Baso # (Auto) 0.10 Immature Gran # (Auto) 0.08 Sodium Potassium Chloride Carbon Dioxide Anion Gap BUN Creatinine Est Cr Clr Drug Dosing Est GFR ( Amer) Est GFR (Non-Af Amer) BUN/Creatinine Ratio Glucose POC Glucose Estimat Average Glucose Hemoglobin A1c Calcium Phosphorus Magnesium Free T4 Medications Administered Current Inpatient Medications Carvedilol (Carvedilol 25 Mg Tab) 25 mg PO BID JALIL Stop: 06/06/22 20:59 Dextrose (Dextrose 50% 50 Ml Syringe) 25 - 50 ml IV UD PRN; Protocol PRN Reason: Hypoglycemia Protocol Stop: 06/04/22 22:39 Enoxaparin Sodium (Enoxaparin Inj 40 Mg/0.4 Ml Syr) 40 mg SQ Q12 JALIL Stop: 06/04/22 22:59 Last Admin: 05/07/22 08:00 Dose: 40 mg Famotidine (Famotidine 20 Mg Tab) 20 mg PO DAILY PRN PRN Reason: INDIGESTION/HEARTBURN Stop: 06/04/22 22:39 Last Admin: 05/07/22 08:00 Dose: 20 mg Fluticasone Propionate (Fluticasone Propionate Na Spr 16 Gm Btl) 2 sprays ALEJANDRA DAILY PRN PRN Reason: Congestion Stop: 06/04/22 22:39 Glucagon (Glucagon For Inj 1 Mg Vial) 1 mg SQ UD PRN; Protocol PRN Reason: Hypoglycemia Protocol Stop: 06/04/22 22:39 Glucose (Glucose 10 Tab/Tube) 4 - 8 tab PO UD PRN; Protocol PRN Reason: Hypoglycemia Treatment Stop: 06/04/22 22:39 Glucose (Glucose 40% Gel 15 Gm Tube) 15 - 30 gm PO UD PRN; Protocol PRN Reason: Hypoglycemia Protocol Stop: 06/04/22 22:39 Hydrochlorothiazide (Hydrochlorothiazide 25 Mg Tab) 25 mg PO DAILY [facility] Stop: 06/05/22 08:59 Last Admin: 05/07/22 07:59 Dose: 25 mg Insulin Aspart (Insulin Aspart Per Unit) 0 units SC ACHS [facility] Stop: 06/05/22 07:29 Last Admin: 05/07/22 08:12 Dose: 7 units Lisinopril (Lisinopril 40 Mg Tab) 40 mg PO QAM [facility] Stop: 06/05/22 08:59 Last Admin: 05/07/22 08:00 Dose: 40 mg Miscellaneous (Carbohydrates For Hypoglycemia ) 15 - 30 gm PO UD PRN PRN Reason: Hypoglycemia Protocol Stop: 06/04/22 22:39
--- NOTE | 2022-05-07 15:30 | Hospitalist Progress Note ---
Date of Service May 07, 2022 Assessment & Plan (1) Hypertensive urgency: Plan: Uncontrolled Sleep Apnea likely contributing -ECHO: Moderate concentric LVH. Left ventricle wall motion is normal. EF 55- 59%. Left ventricular diastolic function is mildly abnormal grade 1. No significant valvular pathology Cardene drip discontinued Appreciate financial planning adviser help Continue carvedilol 25 mg twice daily, hydrochlorothiazide 25 mg daily, lisinopril 40 mg daily. Appreciate cardiology input Monitor (2) Elevated troponin I level: Plan: Elevated troponin due to hypertensive urgency, demand ischemia ACS less likely (3) LVH (left ventricular hypertrophy): Plan: Longstanding hypertension since he was 12 years old. ECH0 as above (4) Morbid obesity: Plan: BMI 52 Needs counselling (5) DMII (diabetes mellitus, type 2): Plan: HbA1C: 7.1 Hold p.o. meds Utilize insulin while hospitalized (6) JOSE RAUL (obstructive sleep apnea): Plan: Not currently using CPAP Scheduled for outpatient Sleep Study Nocturnal Oximetry Qualifies for supplemental oxygen Needs supplemental oxygen arranged prior to discharge DVT Px: Lovenox SQ Code Status Full code Admission and Anticipated Discharge Date Admission Date: May 05, 2022 Subjective Patient is seen and examined at bedside Offers no new complaints BP better today Denies any chest pain, dyspnea, dizziness, headache, change in vision. nausea, vomiting, abd pain Review of Systems Review of Systems: All systems reviewed & are unremarkable except as noted in Subjective Physical Exam Physical Exam: Physical Exam: Vitals signs as noted above General Appearance:Morbid Obesity, no apparent distress Head: normocephalic, Atraumatic Eyes: normal inspection, EOMI Neck: supple, Trachea midline Respiratory/Chest: Decreased breath sounds, CTA, No accessory muscle use Cardiovascular: S1, S2, No murmur Abdomen/GI:Soft, Non tender, Bowel sounds present Extremities/Musculoskeletal:normal inspection, no edema Neurologic/Psych:AAOX3, grossly no focal neurological deficits Skin: normal color, warm Results & Data Results & Data ([facility]) Vital Signs (Past 12 Hours) Vital Signs Temp Pulse Pulse Pulse Resp BP BP 05/07/22 13:52 138/94 05/07/22 13:52 68 20 05/07/22 12:00 66 18 05/07/22 11:11 147/89 H 05/07/22 11:11 66 14 05/07/22 11:16 36.8 C 66 18 147/89 H 05/07/22 10:28 149/88 H 05/07/22 10:28 68 15 05/07/22 10:00 67 16 05/07/22 08:00 73 13 05/07/22 07:59 159/107 H 05/07/22 08:56 36.9 C 05/07/22 06:00 56 L 16 05/07/22 06:00 135/87 05/07/22 05:00 56 L 14 05/07/22 03:37 63 05/07/22 04:20 36.8 C 63 14 134/89 05/07/22 04:00 63 14 05/07/22 04:00 134/89 Pulse Ox Pulse Ox O2 Del Method O2 Del Method 05/07/22 13:52 05/07/22 13:52 97 Room Air 05/07/22 12:00 05/07/22 11:11 05/07/22 11:11 05/07/22 11:16 95 Room Air 05/07/22 10:28 94 05/07/22 10:28 05/07/22 10:00 05/07/22 08:00 95 Room Air 05/07/22 07:59 05/07/22 08:56 05/07/22 06:00 98 05/07/22 06:00 05/07/22 05:00 93 05/07/22 03:37 93 Room Air 05/07/22 04:20 91 Room Air 05/07/22 04:00 91 05/07/22 04:00 Laboratory Results Short CBC 05/07/22 Range/Units 04:47 WBC 12.69 H (4.8-10.8) K/ul Hgb 13.8 L (14.0-18.0) g/dl Hct 42.6 (42.0-52.0) % Plt Count 352 (130-400) K/uL BMP 05/07/22 04:47 Sodium 134 L Potassium 3.7 Chloride 98 Carbon Dioxide 30 BUN 23 Creatinine 1.38 D Glucose 136 H Calcium 8.8
[2022-05-07] MEDS: carvediloL 25 MG TAB PO SCH (20:33)
[2022-05-08 06:10] LABS: Basophils % (auto) 0.8 %; Eosinophils # (auto) 0.37 K/uL (0-0.50); Eosinophils % (auto) 2.9 %; Hematocrit (blood only) 41.8 % (42.0-52.0); Hemoglobin 13.4 g/dl (14.0-18.0); Immature Granulocytes # (auto) 0.09 K/uL (0.01-0.20); Immature Granulocytes % (auto) 0.7 %; Lymphocytes # (auto) 2.87 K/uL (1.2-3.4); Lymphocytes % (auto) 22.9 %; Mean Corpuscular Hemoglobin 25.7 pg (25.0-34.0); Mean Corpuscular Hgb Conc 32.1 g/dL (32.0-36.0); Mean Corpuscular Volume 80.2 fL (80.0-100.0); Mean Platelet Volume 9.3 fL (9.4-12.4); Monocytes % (auto) 10.4 %; Neutrophils # (auto) 7.82 K/uL (1.40-6.50); Neutrophils % (auto) 62.3 %; Platelet Count 356 K/uL (130-400); RDW Coefficient of Variation 13.5 % (11.5-14.5); RDW Standard Deviation 39.2 fL (36.4-46.3); Red Blood Count 5.21 M/uL (4.70-6.10); White Blood Count 12.55 K/ul (4.8-10.8)
[2022-05-08] MEDS: lisinopril 40 MG TAB PO SCH (08:41)
[2022-05-08] MEDS: carvediloL 25 MG TAB PO SCH (08:41)
[2022-05-08] MEDS: FAMOTIDINE 20 MG TAB PO PRN (08:41)
[2022-05-08] MEDS: hydroCHLOROthiazide 25 MG TAB PO SCH (08:41)
[2022-05-08] MEDS: INSULIN ASPART PER UNIT SC SCH ×2 (08:48→12:38)
[2022-05-08 08:49] LABS: Magnesium 2.2 mg/dl (1.7-2.4); Potassium 3.8 mmol/L (3.5-5.1)
[2022-05-08 09:02] LABS: BUN Creatinine Ratio 18.3 (10-20); Creatinine Clr Calc Pharmacy 140.5 ml/min; Est GFR (African American) 89.6 ml/min; Est GFR (Non-African American) 77.3 ml/min
[2022-05-08] MEDS: ENOXAPARIN INJ 40 MG/0.4 ML SYR SQ SCH (09:19)
--- NOTE | 2022-05-08 13:27 | Cardiology Progress Note ---
Date of Service May 08, 2022 Assessment & Plan (1) Hypertensive urgency: Plan: - Blood pressure on presentation to the emergency room on 05/05/2022 was 233/147, improved significantly to 129/84. -Patient asymptomatic on presentation, continues to be asymptomatic. Based on findings of moderate concentric left ventricular hypertrophy, 1+ proteinuria on urinalysis, likely has had suboptimally controlled high blood pressure on a chronic basis. Patient with mild leukocytosis, without any findings to suggest clinical infection. Patient felt to be stable for discharge from a blood pressure standpoint on his prior to hospital treatment with hydrochlorothiazide 25 mg daily. Lisinopril titrated to 40 mg daily. Carvedilol added, titrated to 25 mg twice daily. If blood pressure remains on high follow-up, future considerations include the addition of a calcium channel wilson such as amlodipine, or perhaps adding an aldosterone wilson favoring eplerenone over spironolactone to avoid side effect of gynecomastia. (2) LVH (left ventricular hypertrophy): Plan: -As noted above (3) Abnormal EKG: Plan: -Presenting EKG consistent with LVH , likely subendocardial strain from extremely high blood pressure with inferior repolarization changes on presentation in the setting of LVH on echocardiogram. No further ischemic work up felt to be indicated at present. (4) JOSE RAUL (obstructive sleep apnea): Plan: -Nocturnal hypoxia noted. Will need formal sleep study as outpt. -Recommend consideration of referral to the comprehensive weight loss center at discharge to discuss nutrition, weight loss medication. Admission and Anticipated Discharge Date Admission Date: May 05, 2022 Subjective Patient seen in cardiology follow-up. Blood pressures improved. Feels well. Denies chest discomfort or shortness of breath. Telemetry reveals sinus rhythm in the 60s. Review of Systems Review of Systems: All systems reviewed & are unremarkable except as noted in HPI & below Physical Exam Constitutional: WD/WN, vitals as above + morbidly obese Respiratory: normal respiratory effort, lungs clear to auscultation Cardiovascular: RRR, no murmur, no edema Neurologic: PERRL, EOMI, accommodation nl, no face palsy, no dysarthria Results & Data ([facility]) Vital Signs (Past 12 Hours) Vital Signs Temp Pulse Pulse Pulse Resp BP Pulse Ox 05/08/22 11:35 36.9 C 62 19 129/84 94 05/08/22 08:00 70 05/08/22 07:51 37.2 C 63 18 138/84 96 05/08/22 03:53 36.6 C 61 18 132/83 95 O2 Del Method 05/08/22 11:35 Room Air 05/08/22 08:00 05/08/22 07:51 Room Air 05/08/22 03:53 Room Air Laboratory Results CBC 05/08/22 Range/Units 05:30 WBC 12.55 H (4.8-10.8) K/ul RBC 5.21 (4.70-6.10) M/uL Hgb 13.4 L (14.0-18.0) g/dl Hct 41.8 L (42.0-52.0) % Plt Count 356 (130-400) K/uL Neut # (Auto) 7.82 H (1.40-6.50) K/uL Lymph # (Auto) 2.87 (1.2-3.4) K/uL [place] # (Auto) 1.30 H (0.11-0.59) K/uL Eos # (Auto) 0.37 (0-0.50) K/uL Baso # (Auto) 0.10 (0-0.2) K/uL Comprehensive Metabolic Panel 05/08/22 Range/Units 05:30 Sodium 136 (136-145) mmol/L Potassium 3.8 (3.5-5.1) mmol/L Chloride 100 (98-107) mmol/L Carbon Dioxide 27 (21-32) mmol/L BUN 22 (6-23) mg/dl Creatinine 1.20 (0.6-1.4) mg/dl Glucose 121 H (70-99(Fasting)) mg/dl Calcium 9.0 (8.5-10.1) mg/dl Intake and Output 05/07/22 05/08/22 05/08/22 22:59 06:59 14:59 Intake Total 591 / 1631 200 / 1631 Output Total 1100 Balance 590 / 530 200 / 530 Intake: Oral 591 / 1631 200 / 1631 Output: # Bowel Movements Other: # Unmeasured Voids 2 2 Weight 175.4 kg Weight Measurement Method Built in [facility]
--- NOTE | 2022-05-08 15:11 | Discharge Summary ---
Date of Service May 08, 2022 Admission HPI Per Admitting Provider CHIEF COMPLAINT: Hypertensive urgency. HISTORY OF PRESENT ILLNESS: A 36-year-old male with past medical history significant for type 2 diabetes, hypertension, obesity, history of presumed sleep apnea, presents with hypertensive urgency. The patient went to Cardiology office today for evaluation of hypertension, syncopal episode happened at end of February and left ventricular hypertrophy pattern on EKG. He had a headache and generalized feeling of the illness at the end of February when he had a brief loss of consciousness. After that he had headache for one more day and then he was fine. He went to family doctor. His lisinopril dose was increased from 5 to 20 mg on 03/24/2022. He is on hydrochlorothiazide 25 mg p.o. daily. Today at Cardiology office, echo was done, which showed normal EF, grade I d iastolic dysfunction, no significant valvular pathology, left ventricular wall thickness moderately increased concentric hypertrophy, and his blood pressure was high in 248/132 and so he was advised to come to the ER. In the ER, his blood pressure was still elevated 240/140 even after a dose of Lopressor, labetalol and hydralazine. The patient is asymptomatic. Denies any chest pain, no shortness of breath, no cough, no fevers, no nausea, no abdominal pain. Normal bowel and bladder movements. Appetite is okay. No difficulty swallowing. No headache, no blurred visions, no runny nose, no sore throat, afebrile, resting comfortably, hemodynamically stable. He says with normal activities, he does not get any chest pain or shortness of breath. ALLERGIES: No known drug allergies. PAST MEDICAL HISTORY: As mentioned above. PAST SURGICAL HISTORY: Tonsillectomy, palatopharyngoplasty. MEDICATIONS: The patient is on famotidine 20 mg p.o. daily p.r.n., Flonase 2 sprays intranasal daily p.r.n., hydrochlorothiazide 25 mg p.o. daily, lisinopril 20 mg p.o. daily, metformin 500 mg p.o. b.i.d. FAMILY HISTORY: Significant for aunt has diabetes, maternal grandfather has heart disorder and hypertension. SOCIAL HISTORY: No smoking. Alcohol socially. No drug use. REVIEW OF SYSTEMS: As per HPI. Rest of review of systems is negative. Admission Exam Per Admitting Provider GENERAL: The patient is morbidly obese, not in acute distress. VITAL SIGNS: Temperature 36.5, pulse 86, respiratory rate 13, blood pressure 240/142, oxygen 96% on room air. HEENT: Pupils equal, round and reactive to light. Oral mucosa moist. NECK: No JVD, no neck masses. CARDIOVASCULAR: S1 and S2 heard. Regular rate and rhythm. No murmur, no gallop. RESPIRATORY SYSTEM: Normal AP diameter. No accessory muscle use. No wheezing or crackles. ABDOMEN: Soft, bowel sounds present, nontender, no distention. CENTRAL NERVOUS SYSTEM: Alert and oriented. Speech is clear. No facial droop. Obeys simple commands. Moves extremities. EXTREMITIES: No edema, no erythema. Principal Diagnosis Hypertensive urgency Demand ischemia Discharge Exam GENERAL: Alert and oriented x3. NAD, on RA. Obese Class III. HEENT: No pallor, no icterus. Pupils equal, round and reactive to light. Oral mucosa moist. NECK: No JVD, no neck masses. HEART: S1 and S2 heard. Regular rate and rhythm. No murmur, no gallop. RESPIRATORY SYSTEM: Normal AP diameter. No accessory muscle use. No wheezing, no crackles. ABDOMEN: Soft, bowel sounds present, nontender, no distention. CENTRAL NERVOUS SYSTEM: No facial droop. Speech is clear. Obeys simple commands. Moves extremities. EXTREMITIES: No edema, no erythema seen. Discharge Data Allergies Allergy/AdvReac Type Severity Reaction Status Date / Time No Known Allergies Verified 05/05/22 19:44 Consultations 05/05/22 19:29 ED Decision to Admit Stat 05/05/22 22:40 Consult Powerhouse Operator Routine 05/06/22 05:00 Consult Cardiology Routine Hospital Course (1) Hypertensive urgency: Uncontrolled Sleep Apnea likely contributing , patient to coordinate with primary care office for referral to weight loss program and sleep study. Pt will be dc'd on O2 at nighttime until formal sleep study. Admitting ECHO: Moderate concentric LVH. Left ventricle wall motion is normal. EF 55- 59%. Left ventricular diastolic function is mildly abnormal grade 1. No significant valvular pathology Cardiology evaluated, medication uptitrated. Being discharged on lisinopril 40 Mg daily, prior dose of hydrochlorothiazide, added carvedilol 25 Mg twice daily Discussed with cardiology, good to go from their point of view. (2) Elevated troponin I level: Elevated troponin due to hypertensive urgency, demand ischemia ACS less likely (3) LVH (left ventricular hypertrophy): Longstanding hypertension since he was 12 years old. ECH0 as above (4) Morbid obesity: BMI 52 Needs counselling (5) DMII (diabetes mellitus, type 2): HbA1C: 7.1 Continue with home medication on discharge. (6) JOSE RAUL (obstructive sleep apnea): Not currently using CPAP Scheduled for outpatient Sleep Study Nocturnal Oximetry Qualifies for supplemental oxygen Needs supplemental oxygen arranged prior to discharge, communicated to CM. Code Status: Full code Plan Following instructions communicated at the point of discharge: Follow-up with your primary care physician within a week time and likely you will need labs CBC/CMP/magnesium/phosphorus. For your very high blood pressure, your lisinopril has been increased to 40 Mg daily and Coreg has been added. Continue your prior dose of hydrochlorothiazide. Maintain follow-up with your cardiology as an outpatient as prior. Coordinate with your PCP office for referral to comprehensive weight loss center to discuss nutrition/weight loss medication. Also coordinate w/ your PCP for referral to formal sleep study. Take your medications as prescribed. Please make sure that you are able to get your medications today by calling your pharmacy before you leave the hospital so that your treatment continuity is not broken. Home Health Attestation I certify that this patient is under my care and that I, or a physicians social service assistant working with me, had a face to-face encounter that meets the home health [id number] encounter requirements with this patient. The encounter with the patient was in whole, or in part, for the following medical condition, which is the primary reason for home health care (list medical condition): I certify that, based on my findings, the following services are medically necessary home health services: My clinical findings support the need for the above services because: Further, I certify that my clinical findings support that this patient is homebound (i.e. absences from home require considerable and taxing effort and are for medical reasons or quaker services or infrequently or of short duration when for other reasons) because: Certification for Home Health Services: Based on the above findings, I certify that this patient is confined to the home and needs intermittent residential care, physical therapy and/or speech therapy or continues to need occupational therapy. The patient is under my care, and I have initiated the establishment of the plan of care. This patient will be followed by a physician who will periodically review the plan of care. Total Time Total Time Spent Total Time Spent (In Minutes): 45 Discharge Plan Discharge Items Patient Disposition: Home - Self-Care Reason For Visit: HTN URGENCY Discharge Diagnosis: Hypertensive urgency Demand ischemia Activity: Resume your previous activity Non-emergency contact: Primary Care Provider Call non-emergency contact if: you have any medication questions, your symptoms worsen and your temperature is above 101 Follow-up/Referrals: Edson Licona MD [Primary Care Provider] - Diet: Heart Healthy, Low Fat and Low Sodium (2gm) Addtl Attending Provider Instructions: Follow-up with your primary care physician within a week time and likely you will need labs CBC/CMP/magnesium/phosphorus. For your very high blood pressure, your lisinopril has been increased to 40 Mg daily and Coreg has been added. Continue your prior dose of hydrochlorothiazide. Maintain follow-up with your cardiology as an outpatient as prior. Coordinate with your PCP office for referral to comprehensive weight loss center to discuss nutrition/weight loss medication. Also coordinate w/ your PCP for referral to formal sleep study. Take your medications as prescribed. Please make sure that you are able to get your medications today by calling your pharmacy before you leave the hospital so that your treatment continuity is not broken. Pending Studies at Discharge: No Stand-Alone Forms: My [facility], Smoking Cessation Medications and DC Order Prescriptions: New carvedilol 25 mg Tablet 25 mg PO BID Qty: 60 0RF lisinopril [Zestril] 40 mg Tablet 40 mg PO QAM Qty: 30 0RF Continued metformin 500 mg tablet 500 mg PO BID famotidine 20 mg Tablet 20 mg PO DAILY PRN (Reason: INDIGESTION/HEARTBURN) hydrochlorothiazide 25 mg tablet 25 mg PO DAILY fluticasone propionate 50 mcg/actuation [place],Suspension 2 spray INTRANASAL DAILY PRN (Reason: Congestion) Rx Instructions: administer into each nostril Discontinued lisinopril 20 mg tablet 20 mg PO DAILY Discharge Orders: Discharge Order (Routine); Ordered 05/08/22 Ordered By: Piecre Everett Admission Data Admit Date/Time: 05/05/22 21:31 Attending Provider: Pierce Everett Admit Provider: Neeta Salvador Primary Care Provider: Edson Licona Other Providers: Rizwan Whitfield ; Ion Marin ; Shilpa Hernandez ; Negrito Gonsales ; Romaine Alcaraz ; Alex Samayoa ; Sánchez Odom ; Jamie Solano ; Carlos Espinal ; Estephania Stewart ; Mary Ba ; Shilpa Snider ; Lorenzo Fuentes Other Interventions: Discharge Summary Assessment (RN) Last Done: 05/08/22 16:02
== END 2022-05-08 16:47 | disposition home or self-care (01) | DRG 305 ==
LOC: ED 17:08 → 1E 21:31 → SUATTDRO 21:31 → 1E 22:29 → 4W 05-07 14:46

== ENCOUNTER 2023-08-01 20:57 | Inpatient (IN) ==
--- OUTSIDE RECORDS SUMMARY | 2023-08-01 21:01 | External Medical Summary | Summary of Care ---
Author Name Unknown Organization [facility] Address [address] [place] [address] Phone [phone] Care Team Providers Care [employer] Faculty Member Name Role Phone Edson Licona MD Primary Care Provider [phone] Encounter Details Date Type Department Care Team (Late st Contact Info) Description 06/13/2023 Result Scan Unspecified Department <No scans attached> Allergies No known active allergiesdocumented as of this encounter (statuses as of 06/15/2023) Medications Medication Sig Dispensed Refills Start Date End Date Status Omeprazole 20 MG Oral Capsule Delayed Release (PriLOSEC)Indicatio ns:Gastroesophageal reflux disease TAKE 1 CAPSULE BY MOUTH ONCE DAILY ONE HOUR BEFORE THE FIRST MEAL OF THE DAY 90 Cap 0 11/18/2020 Active Fluticasone Propionate 50 MCG/ACT Nasal Suspension (Flonase) Administer 2 Sprays into each nostril daily. 18.2 mL 1 01/19/2021 Active metFORMIN HCl 500 MG Oral Tablet (Glucophage)Indicat ions:Type 2 diabetes mellitus with hemoglobin A1c goal of less than 7.0% (HCC) Take 1 Tablet by mouth 2 times a day with morning and evening meals. 180 Tablet 3 03/18/2022 Active Famotidine 20 MG Oral Tablet (Pepcid) Take 1 Tablet by mouth daily as needed. 0 05/05/2022 Active Carvedilol 25 MG Oral Tablet (Coreg) Take 1 Tablet by mouth in the morning and 1 Tablet before bedtime. 180 Tablet 3 05/19/2022 Active Lisinopril 40 MG Oral Tablet Take 1 Tablet by mouth in the morning. In the morning.. 90 Tablet 3 05/19/2022 Active hydroCHLOROthiazide 25 MG Oral Tablet (Hydrodiuril) Take 1 tablet by mouth once daily 90 Tablet 1 11/29/2022 Active documented as of this encounter (statuses as of 06/15/2023) Active Problems Problem Noted Date Diagnosed Date Type 2 diabetes mellitus wit h hemoglobin A1c goal of less than 7.0% 03/18/2022 Smokeless tobacco use 03/17/2022 Gastroesophageal reflux disease without esophagi tis 01/19/2021 HTN, goal below 130/80 07/14/2012 JOSE RAUL (obstructive sleep apnea) 08/17/2009 Super obese 09/29/2001 Overview: Per Obesity Taxonomy documented as of this encounter (statuses as of 06/15/2023) Resolved Problems Problem Noted Date Diagnosed Date Resolved Date Body mass index (BMI) of 50. 0 to 59.9 in adult 12/06/2016 01/18/2021 Overview: Per Obesity protocol #1 Acute sinusitis 02/13/2014 11/12/2016 Bronchitis, complicated 10/23/2012 09/0 10/2016 Bronchitis 05/05/2012 08/14/2012 Elevated blood pressure, situational 05/05/2012 07/14/2012 Prediabetes 10/27/2011 03/18/2022 Overview: 10/16 a1c 5.8-needs discuss Acute bronchitis, complicated 08/20/2011 08/14/2012 Obesity, Class III, BMI 40-4 9.9 (morbid obesity) 04/05/2011 12/09/2016 Overview: Per Obesity protocol #1 Hypertrophy of tonsils and adenoids 08/07/2009 08/14/2012 Follow-up examination, follo wing other surgery 08/07/2009 08/14/2012 documented as of this encounter (statuses as of 06/15/2023) Immunizations Name Administration Dates Next Due Seasonal Influenza, PF, 6 M & above, IM , (FluLaval or Fluzone) 11/07/2019 Seasonal Influenza, Split, IIV3, With Preserve, Inj 2010 TDAP (age 11 and older)(Adacel) 01/06/2011 documented as of this encounter Social History Tobacco Use Types Packs/Day Years Used Date Smoking Tobacco: Never Smokeless Tobacco: Current Chew Comments:occasional Alcohol Use Standard Drinks/Week Comments Yes 0 (1 standard drink = 0.6 oz pur e alcohol) social/holiday Hunger Vital Sign Answer Date Recorded Within the past 12 months, y ou worried that your food would run out before you got the money to buy more. Never true 06/16/19 23 Within the past 12 months, t he food you bought just didn't last and you didn't have money to get more. Never true 06/15/2022 Sex and Gender Information Value Date Recorded Sex Assigned at Male 06/15/2022 6:25 AM EDT Gender Identity Male 06/15/2022 6:25 AM EDT Sexual Orientation Straight 06/15/2022 6: 25 AM EDT Job Start Date Occupation Industry Not on file Not on file Not on file documented as of this encounter Plan of Treatment Health Maintenance Due Date Last Done Comments Pneumococcal Vaccine: Pediatrics (0 to 5 Years) and At-Risk Patients (6 to 64 Years) (1 of 2 - PCV) 12/24/1991 Albumin/Creatinine Ratio 12/24/2003 Diabetic Eye Exam 12/24/2003 Diabetic Foot Exam 12/24/2003 Depression Screening 11/12/2017 11/12/2016 DTaP,Tdap,and Td Vaccines (3 - Td or Tdap) 01/06/2021 01/06/2011, 09/29/2001 HbA1c 09/14/2022 03/17/2022, 10/26/2011 COVID-19 Vaccine (1 - 2022-2 4 season) 2022 GFR 03/17/2023 03/17/2022 Influenza Vaccine (FLU shot) (Season Ended) 2023 11/07/2019, 2010 Hepatitis B Completed 08/22/2002, 11/01/2001, 09/29/2001 GARDASIL-HPV IMMUNIZATION SERIES Aged Out No longer eligible b ased on patient's age to complete this topic MENINGOCOCCAL (MENACTRA/MENVEO) Aged Out No longer eligible b ased on patient's age to complete this topic documented as of this encounter Medical Devices Not on filedocumented as of this encounter Procedures Procedure Name Priority Date/Time Associated Diagnosis Comments OUTSIDE LAB RESULTS 06/13/2023 documented in this encounter Results * OUTSIDE LAB RESULTS (06/13/2023) 06/13/2023 No Physician Data Unknown LABORATORY documented in this encounter Advance Directives Latest Code Status on File Code Status Date Activated Date Inactivated Comments Full Code 08/17/2009 2:35 AM 08/19/2009 7:55 PM This order reflects the patients wishes and were consensually agreed upon. Question Answer Comments Discussion of Advance Directives occurred with: Not Discussed Does the patient have a Living Will? No Does the patient have Health Care Power of Dentistry Teacher? No Care Teams College Or [employer] Faculty Member Relationship Specialty Start Date End Date Edson Licona MD [address] [place] [id number] PCP - General Family Medicine 11/12/16 documented as of this encounter
--- NOTE | 2023-08-01 21:17 | Emergency Department Note ---
Impression & Plan Acute dyspnea, Non-ST elevation FL (NSTEMI), Elevated brain natriuretic peptide (BNP) level, Hyperglycemia, Hypertensive emergency ED Provider Note HISTORY OF PRESENT ILLNESS: Patient is a 37-year-old male presenting with shortness of breath. Patient reports that around 1900 tonight while he was playing videogames, he suddenly felt like he was "having a panic attack." He has never had a panic attack before, but describes his symptoms as becoming very short of breath and feel like he could not catch his breath. He denies ever having symptoms like this before. He could not catch his breath so he called 911. On EMS arrival, the patient had saturations in the 70s he is at heart rate of 140-160s. He was started on supplemental oxygen. He denies any chest pain. He denies any DVT or PE history. He is not on any anticoagulation. Denies any nausea or vomiting. Did become very diaphoretic and route with EMS. ROS: as above PHYSICAL EXAM: Constitutional: Patient appears in no acute distress. Morbidly obese HENT: Head: Normocephalic and atraumatic. Eyes: EOMI, PERRL Mouth/Throat: Mucous membranes moist. Neck: Trachea midline. Neck supple. Cardiovascular: Tachycardic with regular rhythm. No murmurs, rubs or gallops. Intact distal pulses. Pulmonary/Chest: No respiratory distress. Patient is tachypneic and conversationally dyspneic. Breath sounds clear and equal bilaterally. He is on 4 L supplemental oxygen. Abdominal: Abdomen soft, no tenderness, rebound or guarding. Musculoskeletal: No edema, tenderness or deformity noted. Skin: Warm and dry. No rash, erythema, pallor or cyanosis Psychiatric: Appropriate mood and affect for situation. Neurological: Alert and keenly responsive. CN II-XII grossly intact, moving all extremities equally and fully. MDM: - Vitals signs showed hypertension, tachycardia and hypoxia. Patient was placed on 4 L nasal cannula. Patient does report that he has not taken his antihypertensive medications this evening. - History obtained via patient. History as above. - Chronic conditions affecting care: HTN; DM-2 - Differential diagnoses include, but are not limited to: Congestive heart failure; acute coronary syndrome; COPD/asthma exacerbation; pulmonary edema; pulmonary embolism; pneumonia; pneumothorax; viral syndrome - Order placed for continuous cardiac monitoring. At this time, monitor showed rate of 138 bpm with normal sinus rhythm, per my interpretation. - External medical records reviewed. Discharge summary dated 05/08/2022 was reviewed. Patient was admitted at that time for hypertensive urgency. His blood pressure in the ER was in the 240s systolic. - EKG interpreted by myself showed normal sinus rhythm. Rate tachycardic at 136 bpm. QT 282. No acute ischemic changes. - Laboratory workup interpreted by myself showed leukocytosis (WBC 17.58) with left shift; normal PT/INR; stable electrolytes; hyperglycemia (glucose 350); elevated troponin (104); elevated BNP (928) - Viral respiratory panel negative - CXR showed pulmonary vascular congestion, per my interpretation - VBG normal - Patient initially given 10 mg IV hydralazine with little improvement in his BP - Ordered cardine drip for BP control. Given 40 mg IV lasix and 10 mg IV lopressor. BPs improved to 180s and HR to 101. - CT PE negative for PE, but noted to have cardiomegaly and interstitial edema - UA and UDS ordered - Discussion was had with case resource manager about patient's case and need for admission - Hospitalist consulted for admission - [facility]. I have personally spent 43 minutes of critical care time in the direct management of this patient. This includes bedside care, interpretation of diagnostic studies, and testing, discussion with consultants, patient, and family members, and other required patient management activities. This 43 minutes is in excess of all separately billable procedures. ASSESSMENT AND PLAN: Diagnosis: acute dyspnea; NSTEMI; elevated BNP; hyperglycemia; hypertensive emergency Plan: Admit Past Med/Surg History Problem List (Updated 08/01/23 @ 23:20 by More Dos Santos MD) Hypertensive emergency (Acute) Hyperglycemia (Acute) Elevated brain natriuretic peptide (BNP) level (Acute) Non-ST elevation FL (NSTEMI) (Acute) Acute dyspnea (Acute) JOSE RAUL (obstructive sleep apnea) DMII (diabetes mellitus, type 2) Morbid obesity Hypertensive urgency (Acute) Elevated troponin I level (Acute) LVH (left ventricular hypertrophy) (Acute) Abnormal EKG (Acute) Bronchitis (Acute) HTN (hypertension) (Acute) Noncompliance with medications (Acute) Medical History (Updated 08/01/23 @ 23:20 by More Dos Santos MD) HTN (hypertension) Surgical History No pertinent past surgical history Social History Smoking Status: Never smoker Do You Dip or Chew Tobacco: Yes; Hx Alcohol Use: No Hx Substance Use: No Preferred Language: Stateless Communication Ability: Effective Shipping And Receiving Associate Required: No Beliefs That Will Affect Care: None Current Living Situation: Family Current Living Situation Comment: lives with parents Feels Safe at Home: Yes Assistive Devices: None Allergies Allergies Allergy/AdvReac Type Severity Reaction Status Date / Time No Known Allergies Verified 05/05/22 19:44 Home Meds Home Medications Medication Instructions Recorded Confirmed famotidine 20 mg tablet 20 mg PO DAILY PRN 05/05/22 05/05/22 INDIGESTION/HEARTBURN fluticasone propionate 50 2 spray intranasal DAILY PRN 05/05/22 05/05/22 mcg/actuation nasal Congestion spray,suspension hydrochlorothiazide 25 mg tablet 25 mg PO DAILY 05/05/22 05/05/22 metformin 500 mg tablet 500 mg PO BID 05/05/22 05/05/22 Previous Rx's Medication Instructions Recorded carvedilol 25 mg tablet 25 mg PO BID #60 tabs 05/08/22 lisinopril 40 mg tablet (Zestril) 40 mg PO QAM #30 tabs 05/08/22 Results & Data (ED) Vital Signs Vital Signs - 24 hr 08/01/23 21:04 08/01/23 21:14 08/01/23 21:26 Temperature 37.1 C Temperature Source Oral Pulse Rate 137 H 143 H Pulse Rate [Apical] 124 H Respiratory Rate 41 H 40 H Respiratory Effort / Characteristics Labored Pursed Lip Short of Breath Tripoding Respiratory Pattern Tachypnea Blood Pressure 273/202 H Blood Pressure [Right Arm] 274/191 H Blood Pressure Mean 225 Blood Pressure Mean [Right Arm] 218 Pulse Oximetry 78 L 96 Oxygen Delivery Method Room Air Nasal Cannula Oxygen Flow Rate 4 Sepsis Recent Fever Within 48 Hours No Sepsis New/Unexplained Change in Mental Status N/A Sepsis Action Taken by Nursing No Action Required 08/01/23 21:27 08/01/23 21:48 08/01/23 22:26 Temperature Temperature Source Pulse Rate Pulse Rate [Apical] 130 H Respiratory Rate 37 H Respiratory Effort / Characteristics Respiratory Pattern Blood Pressure Blood Pressure [Right Arm] 259/180 H Blood Pressure Mean Blood Pressure Mean [Right Arm] 206 Pulse Oximetry 96 97 96 Oxygen Delivery Method Nasal Cannula Nasal Cannula Nasal Cannula Oxygen Flow Rate 4 4 4 Sepsis Recent Fever Within 48 Hours Sepsis New/Unexplained Change in Mental Status Sepsis Action Taken by Nursing 08/01/23 22:52 08/01/23 23:00 08/01/23 23:17 Temperature Temperature Source Pulse Rate 128 H 101 H Pulse Rate [Apical] 101 H Respiratory Rate 32 H Respiratory Effort / Characteristics Respiratory Pattern Blood Pressure 259/180 H 184/126 H Blood Pressure [Right Arm] 181/120 H Blood Pressure Mean Blood Pressure Mean [Right Arm] 140 Pulse Oximetry 95 Oxygen Delivery Method Nasal Cannula Oxygen Flow Rate 4 Sepsis Recent Fever Within 48 Hours Sepsis New/Unexplained Change in Mental Status Sepsis Action Taken by Nursing Laboratory Data 08/01/23 21:07 08/01/23 21:07 Lab Results 08/01/23 08/01/23 08/01/23 Range/Units 21:07 21:08 21:40 WBC 17.58 H (4.8-10.8) K/ul RBC 6.27 H (4.70-6.10) M/uL Hgb 16.2 (14.0-18.0) g/dl POC Hgb (14.0-18.0) g/dl Hct 50.4 (42.0-52.0) % POC Hct (42-52) % MCV 80.4 (80.0-100.0) fL MCH 25.8 (25.0-34.0) pg MCHC 32.1 (32.0-36.0) g/dL RDW Std Deviation 36.5 (36.4-46.3) fL RDW Coeff of Jorge Luis 12.7 (11.5-14.5) % Plt Count 411 H (130-400) K/uL MPV 9.9 (9.4-12.4) fL Immature Gran % (Auto) 0.5 % Neut % (Auto) 70.5 % Lymph % (Auto) 19.6 % [place] % (Auto) 6.4 % Eos % (Auto) 2.3 % Baso % (Auto) 0.7 % Neut # (Auto) 12.39 H (1.40-6.50) K/uL Lymph # (Auto) 3.44 H (1.20-3.40) K/uL [place] # (Auto) 1.13 H (0.11-0.59) K/uL Eos # (Auto) 0.41 (0.00-0.50) K/uL Baso # (Auto) 0.12 (0.00-0.20) K/uL Immature Gran # (Auto) 0.09 (0.01-0.20) K/uL PT 11.1 (9.0-12.0) Seconds INR 1.0 (0.9-1.1) VBG pH 7.40 (7.36-7.41) VBG pCO2 49 (38-50) mmHg VBG pO2 52 mmHg VBG HCO3 30 mmol/L VBG O2 Saturation 85.0 % VBG Base Excess 4.5 mEq/L POC Sodium (135-144) mmol/L Sodium 135 L (136-145) mmol/L POC Potassium (3.3-5.0) mmol/L Potassium 3.6 (3.5-5.1) mmol/L POC Chloride (101-112) mmol/L Chloride 98 (98-107) mmol/L Carbon Dioxide 28 (21-32) mmol/L POC Total CO2 (24-31) mmol/L Anion Gap 9 (3-11) POC Anion Gap (16-25) mmol/L POC BUN (7-18) mg/dl BUN 15 (6-23) mg/dl Creatinine 1.03 (0.6-1.4) mg/dl POC Creatinine (0.6-1.3) mg/dl Est Cr Clr Drug Dosing 165.1 ml/min Est GFR ( Amer) 107.1 ml/min Est GFR (Non-Af Amer) 92.4 ml/min BUN/Creatinine Ratio 14.6 (10-20) Glucose 350 H* (70-99(Fasting)) mg/dl POC Glucose (other) (70-99) mg/dl Calcium 8.9 (8.6-10.3) mg/dl POC Ioniz Calcium Fuentes (1.12-1.32) mmol/l Magnesium 1.9 (1.7-2.4) mg/dl Total Bilirubin 0.9 (0.2-1.0) mg/dl AST 35 (13-39) U/L ALT 42 (7-52) U/L Alkaline Phosphatase 93 (34-104) U/L Troponin I High Sens 104.0 H* (0-20) pg/ml B-Natriuretic Peptide 928 H (0-100) pg/ml Total Protein 8.0 (6.0-8.3) gm/dl Albumin 3.8 (3.4-5.0) gm/dl Globulin 4.2 H (2.5-4.0) gm/dl Albumin/Globulin Ratio 0.9 (0.9-2) Adenovirus (PCR) Not Detected (NotDetected) B. pertussis DNA (PCR) Not Detected (NotDetected) B.parapertussis DNA PCR Not Detected (NotDetected) C. pneumoniae DNA (PCR) Not Detected (NotDetected) Coronavirus OC43 (PCR) Not Detected (NotDetected) Coronavirus HKU1 (PCR) Not Detected (NotDetected) Coronavirus 229E (PCR) Not Detected (NotDetected) SARS-CoV-2 (PCR) Not Detected (NotDetected) Coronavirus NL63 (PCR) Not Detected (NotDetected) Human Metapneumovir PCR Not Detected (NotDetected) Influenza Type A (PCR) Not Detected (NotDetected) Influenza Type B (PCR) Not Detected (NotDetected) M. pneumoniae (PCR) Not Detected (NotDetected) Parainfluenza 1 (PCR) Not Detected (NotDetected) Parainfluenza 2 (PCR) Not Detected (NotDetected) Parainfluenza 3 (PCR) Not Detected (NotDetected) Parainfluenza 4 (PCR) Not Detected (NotDetected) RSV (PCR) Not Detected (NotDetected) Entero/Rhino (PCR) Not Detected (NotDetected) 08/01/23 Range/Units 21:44 WBC (4.8-10.8) K/ul RBC (4.70-6.10) M/uL Hgb (14.0-18.0) g/dl POC Hgb 17.0 (14.0-18.0) g/dl Hct (42.0-52.0) % POC Hct 50 (42-52) % MCV (80.0-100.0) fL MCH (25.0-34.0) pg MCHC (32.0-36.0) g/dL RDW Std Deviation (36.4-46.3) fL RDW Coeff of Jorge Luis (11.5-14.5) % Plt Count (130-400) K/uL MPV (9.4-12.4) fL Immature Gran % (Auto) % Neut % (Auto) % Lymph % (Auto) % [place] % (Auto) % Eos % (Auto) % Baso % (Auto) % Neut # (Auto) (1.40-6.50) K/uL Lymph # (Auto) (1.20-3.40) K/uL [place] # (Auto) (0.11-0.59) K/uL Eos # (Auto) (0.00-0.50) K/uL Baso # (Auto) (0.00-0.20) K/uL Immature Gran # (Auto) (0.01-0.20) K/uL PT (9.0-12.0) Seconds INR (0.9-1.1) VBG pH (7.36-7.41) VBG pCO2 (38-50) mmHg VBG pO2 mmHg VBG HCO3 mmol/L VBG O2 Saturation % VBG Base Excess mEq/L POC Sodium 137 (135-144) mmol/L Sodium (136-145) mmol/L POC Potassium 4.1 (3.3-5.0) mmol/L Potassium (3.5-5.1) mmol/L POC Chloride 100 L (101-112) mmol/L Chloride (98-107) mmol/L Carbon Dioxide (21-32) mmol/L POC Total CO2 29 (24-31) mmol/L Anion Gap (3-11) POC Anion Gap 13.0 L (16-25) mmol/L POC BUN 19 H (7-18) mg/dl BUN (6-23) mg/dl Creatinine (0.6-1.4) mg/dl POC Creatinine 0.9 (0.6-1.3) mg/dl Est Cr Clr Drug Dosing ml/min Est GFR ( Amer) ml/min Est GFR (Non-Af Amer) ml/min BUN/Creatinine Ratio (10-20) Glucose (70-99(Fasting)) mg/dl POC Glucose (other) 356 H* (70-99) mg/dl Calcium (8.6-10.3) mg/dl POC Ioniz Calcium Fuentes 1.10 L (1.12-1.32) mmol/l Magnesium (1.7-2.4) mg/dl Total Bilirubin (0.2-1.0) mg/dl AST (13-39) U/L ALT (7-52) U/L Alkaline Phosphatase (34-104) U/L Troponin I High Sens (0-20) pg/ml B-Natriuretic Peptide (0-100) pg/ml Total Protein (6.0-8.3) gm/dl Albumin (3.4-5.0) gm/dl Globulin (2.5-4.0) gm/dl Albumin/Globulin Ratio (0.9-2) Adenovirus (PCR) (NotDetected) B. pertussis DNA (PCR) (NotDetected) B.parapertussis DNA PCR (NotDetected) C. pneumoniae DNA (PCR) (NotDetected) Coronavirus OC43 (PCR) (NotDetected) Coronavirus HKU1 (PCR) (NotDetected) Coronavirus 229E (PCR) (NotDetected) SARS-CoV-2 (PCR) (NotDetected) Coronavirus NL63 (PCR) (NotDetected) Human Metapneumovir PCR (NotDetected) Influenza Type A (PCR) (NotDetected) Influenza Type B (PCR) (NotDetected) M. pneumoniae (PCR) (NotDetected) Parainfluenza 1 (PCR) (NotDetected) Parainfluenza 2 (PCR) (NotDetected) Parainfluenza 3 (PCR) (NotDetected) Parainfluenza 4 (PCR) (NotDetected) RSV (PCR) (NotDetected) Entero/Rhino (PCR) (NotDetected) Administered Medications Nicardipine HCl 25 mg/ Sodium (Chloride) 250 mls @ 50 mls/hr IV .Q5H [facility]; Protocol Stop: 08/31/23 22:14 Last Admin: 08/01/23 22:43 Dose: 5 mg/hr, 50 mls/hr Documented By: PAZ Co-signed By: DM Discontinued Medications Furosemide (Furosemide 40 Mg/4 Ml Vial) 40 mg IV ONE ONE Stop: 08/01/23 22:37 Last Admin: 08/01/23 22:43 Dose: 40 mg Documented By: PAZ Hydralazine HCl (Hydralazine Hcl 20 Mg/Ml Vial) 10 mg IV NOW STA Stop: 08/01/23 21:39 Last Admin: 08/01/23 21:46 Dose: 10 mg Documented By: PAZ Ioversol (Optiray 320 125ml) 120 ml IV ONCE ONE Stop: 08/01/23 22:11 Last Admin: 08/01/23 22:10 Dose: 120 ml Documented By: SHLOMO Labetalol HCl (Labetalol Hcl Iv 5 Mg/Ml 20ml) 10 mg IV NOW STA Stop: 08/01/23 22:42 Last Admin: 08/01/23 22:52 Dose: 10 mg Documented By: PAZ Co-signed By: [facility] [place] Data Radiologist's Impression: Chest CTA 08/01/23 21:14 Exam(s): CTA CHEST EXAM: CT Angiography Chest With Intravenous Contrast CLINICAL HISTORY: Reason for exam: PE; tachycardia; hypoxia; SOB. TECHNIQUE: Axial computed tomographic angiography images of the chest with intravenous contrast. CTDI is 28.14 mGy and DLP is 993.24 mGy-cm. Automated exposure control was utilized for the study. A dose lowering technique was utilized adhering to the principles of ALARA. MIP reconstructed images were created and reviewed. COMPARISON: No relevant prior studies available. FINDINGS: Pulmonary arteries: No central pulmonary emboli. Distal emboli cannot be entirely excluded. Aorta: No acute findings. No thoracic aortic aneurysm. Lungs: Perihilar and bibasilar atelectasis. Mild interstitial edema. No mass. Pleural space: Small right pleural effusion. No pneumothorax. Heart: Unremarkable. No cardiomegaly. No significant pericardial effusion. No evidence of RV dysfunction. Bones/joints: No acute fracture. No dislocation. Soft tissues: Unremarkable. Lymph nodes: Unremarkable. No enlarged lymph nodes. IMPRESSION: 1. No central pulmonary emboli. Distal emboli cannot be entirely excluded. 2. Perihilar and bibasilar atelectasis. Mild interstitial edema. Cardiomegaly. Electronically signed by: Suellen Amador MD 08/01/23 22:35 PM Discharge Plan Visit Data Chief Complaint: Shortness of Breath/Dyspnea Stated Complaint: PANIC ATTACK, SOB ED Provider: More Dos Santos Discharge Problem: Acute dyspnea, Non-ST elevation FL (NSTEMI), Elevated brain natriuretic peptide (BNP) level, Hyperglycemia, Hypertensive emergency Forms Stand Alone Forms: [facility] Prescriptions Prescriptions: No Action famotidine 20 mg Tablet 20 mg PO DAILY PRN (Reason: INDIGESTION/HEARTBURN) hydrochlorothiazide 25 mg tablet 25 mg PO .[id number] fluticasone propionate 50 mcg/actuation [employer] [place] [place],Suspension 2 spray INTRANASAL DAILY PRN (Reason: Congestion) Rx Instructions: administer into each nostril carvedilol 25 mg tablet 25 mg PO .[id number] lisinopril [Zestril] 40 mg tablet 40 mg PO .[id number] Referrals Referrals: Edson Licona MD [Primary Care Provider] -
[2023-08-01 21:39] LABS: Basophils # (auto) 0.12 K/uL (0.00-0.20); Basophils % (auto) 0.7 %; Eosinophils # (auto) 0.41 K/uL (0.00-0.50); Eosinophils % (auto) 2.3 %; Hematocrit (blood only) 50.4 % (42.0-52.0); Hemoglobin 16.2 g/dl (14.0-18.0); Immature Granulocytes # (auto) 0.09 K/uL (0.01-0.20); Immature Granulocytes % (auto) 0.5 %; Lymphocytes # (auto) 3.44 K/uL (1.20-3.40); Lymphocytes % (auto) 19.6 %; Mean Corpuscular Hemoglobin 25.8 pg (25.0-34.0); Mean Corpuscular Hgb Conc 32.1 g/dL (32.0-36.0); Mean Corpuscular Volume 80.4 fL (80.0-100.0); Mean Platelet Volume 9.9 fL (9.4-12.4); Monocytes # (auto) 1.13 K/uL (0.11-0.59); Monocytes % (auto) 6.4 %; Neutrophils # (auto) 12.39 K/uL (1.40-6.50); Neutrophils % (auto) 70.5 %; Platelet Count 411 K/uL (130-400); RDW Coefficient of Variation 12.7 % (11.5-14.5); RDW Standard Deviation 36.5 fL (36.4-46.3); Red Blood Count 6.27 M/uL (4.70-6.10); White Blood Count 17.58 K/ul (4.8-10.8)
[2023-08-01] MEDS: hydrALAZINE HCL 20 MG/ML VIAL IV STA (21:46)
[2023-08-01 21:49] LABS: Albumin Globulin Ratio 0.9 (0.9-2); Albumin Level 3.8 gm/dl (3.4-5.0); BUN Creatinine Ratio 14.6 (10-20); Bilirubin,Total 0.9 mg/dl (0.2-1.0); Calcium 8.9 mg/dl (8.6-10.3); Creatinine Clr Calc Pharmacy 165.1 ml/min; Est GFR (African American) 107.1 ml/min; Est GFR (Non-African American) 92.4 ml/min; Globulin 4.2 gm/dl (2.5-4.0); Magnesium 1.9 mg/dl (1.7-2.4); Potassium 3.6 mmol/L (3.5-5.1)
[2023-08-01 21:58] LABS: iSTAT Creatinine 0.9 mg/dl (0.6-1.3); iSTAT Ionized Calcium 1.1 mmol/l (1.12-1.32); iSTAT Potassium 4.1 mmol/L (3.3-5.0)
[2023-08-01 22:03] LABS: Prothrombin Time 11.1 Seconds (9.0-12.0)
[2023-08-01] MEDS: OPTIRAY 320 125ml IV ONE (22:10)
[2023-08-01 22:19] LABS: Base Excess VBG 4.5 mEq/L; HCO3 VBG 30 mmol/L; PCO2 VBG 49 mmHg (38-50); PO2 VBG 52 mmHg
[2023-08-01 22:36] LABS: Adenovirus PCR Not Detected (NotDetected); Bordetella parapertussis PCR Not Detected (NotDetected); Bordetella pertussis PCR Not Detected (NotDetected); Chlamydia pneumoniae PCR Not Detected (NotDetected); Coronavirus 229E PCR Not Detected (NotDetected); Coronavirus CoV-2 (COVID19)PCR Not Detected (NotDetected); Coronavirus HKU1 PCR Not Detected (NotDetected); Coronavirus NL63 PCR Not Detected (NotDetected); Coronavirus OC43PCR Not Detected (NotDetected); Human Metapneumovirus PCR Not Detected (NotDetected); Influenza A PCR Not Detected (NotDetected); Influenza B PCR Not Detected (NotDetected); Mycoplasma pneumoniae PCR Not Detected (NotDetected); Parainfluenza Virus 1 PCR Not Detected (NotDetected); Parainfluenza Virus 2 PCR Not Detected (NotDetected); Parainfluenza Virus 3 PCR Not Detected (NotDetected); Parainfluenza Virus 4 PCR Not Detected (NotDetected); Respiratory Syncytial VirusPCR Not Detected (NotDetected); Rhinovirus/Enterovirus PCR Not Detected (NotDetected)
--- NOTE | 2023-08-01 22:36 | CT Scan Report ---
Exam(s): CTA CHEST EXAM: CT Angiography Chest With Intravenous Contrast CLINICAL HISTORY: Reason for exam: PE; tachycardia; hypoxia; SOB. TECHNIQUE: Axial computed tomographic angiography images of the chest with intravenous contrast. CTDI is 28.14 mGy and DLP is 993.24 mGy-cm. Automated exposure control was utilized for the study. A dose lowering technique was utilized adhering to the principles of ALARA. MIP reconstructed images were created and reviewed. COMPARISON: No relevant prior studies available. FINDINGS: Pulmonary arteries: No central pulmonary emboli. Distal emboli cannot be entirely excluded. Aorta: No acute findings. No thoracic aortic aneurysm. Lungs: Perihilar and bibasilar atelectasis. Mild interstitial edema. No mass. Pleural space: Small right pleural effusion. No pneumothorax. Heart: Unremarkable. No cardiomegaly. No significant pericardial effusion. No evidence of RV dysfunction. Bones/joints: No acute fracture. No dislocation. Soft tissues: Unremarkable. Lymph nodes: Unremarkable. No enlarged lymph nodes. IMPRESSION: 1. No central pulmonary emboli. Distal emboli cannot be entirely excluded. 2. Perihilar and bibasilar atelectasis. Mild interstitial edema. Cardiomegaly. Electronically signed by: Suellen Amador MD 08/01/23 22:35 PM
[2023-08-01] MEDS: niCARdipine 25 MG in SODIUM CHLORIDE 0.9% 240 ML IV SCH (22:43)
[2023-08-01] MEDS: FUROSEMIDE 40 MG/4 ML VIAL IV ONE (22:43)
[2023-08-01] MEDS: LABETALOL HCL IV 5 MG/ML 20ML IV STA (22:52)
[2023-08-01 23:38] LABS: Amphetamines+Metham, Urine Neg (Neg); Appearance Urine Clear (Clear); Bacteria Urine Automated None Seen (None Seen); Barbiturates, Urine Neg (Neg); Benzodiazepine, Urine Neg (Neg); Bilirubin Urine Negative (Negative); Blood Urine Negative (Negative); Cocaine, Urine Neg (Neg); Color Urine Yellow; Glucose Urine UA 2+ (Negative); Granular Casts Urine Present /lpf (None Prsent); Hyaline Casts Urine Present /lpf (None Presnt); Ketones Urine Negative (Negative); Leukocyte Esterase Urine Negative (Negative); MDMA (Ecstacy), Urine Neg (Neg); Marijuana, Urine Neg (Neg); Methadone, Urine Neg (Neg); Nitrite Urine Negative (Negative); Opiate, Urine Neg (Neg); Phencyclidine, Urine Neg (Neg); Protein Urine 3+ (Negative); RBC Urine Automated 0-2 /hpf (0-2); Specific Gravity Urine 1.034 (1.000-1.030); Urobilinogen Urine Negative (Negative); WBC Urine Automated 0-5 /hpf (0-5); pH Urine 5.5 (4.5-7.5)
--- NOTE | 2023-08-02 03:05 | History & Physical Report ---
Date of Service August 02, 2023 Assessment & Plan (1) Hypertensive emergency: Plan: 37-year-old male with past medical history significant for type 2 diabetes, uncontrolled hypertension, obstructive sleep apnea noncompliant with CPAP presents with shortness of breath and found to have hypertensive urgency/emergency. For EMS his oxygen saturation 70% and heart rate of 140-160 was placed on oxygen and brought to the ER. In the ER his blood pressures 240s systolic. Tachycardic. And hyperglycemic. Elevated BNP and elevated troponin. Chest x-ray pulmonary congestion. He was initially given IV hydralazine 10 mg with no improvement of BP given IV Lasix 40 mg and IV Lopressor and And then placed on Cardene drip. Currently resting comfortably. Patient denies any chest pain . Denies any dizziness. No headache. No blurred visions or double vision. No runny nose or sore throat. No cough. Appetite is okay. No difficulty swallowing. No nausea. has on and off abdominal pain around his umbilical region but no abdominal pain currently. Normal bowel and bladder movements. Ambulates okay. patient was admitted last May 2022 with hypertensive urgency requiring Cardene drip. last admission he was also found to have possible sleep apnea as he was requiring nocturnal oxygen. He was discharged home on nocturnal oxygen and advised for sleep study. He had a home sleep study which showed moderate sleep apnea and was advised to get full formal study. But patient did not had formal sleep study yet. He is also states because of miscommunication he canceled the home oxygen set up and not using oxygen currently at home. He was discharged on Coreg, lisinopril and hydrochlorothiazide. Patient states he takes Coreg only once daily. And also he forgets and on average takes Medications only 5 times a week. hypertensive emergency noncompliant with his medications noncompliant with his sleep study ER started on Cardene drip which will be continued continues home Coreg and lisinopril hold hydrochlorothiazide as is getting Lasix we will follow serial enzymes and echo telemetry cardiac consult for further recommendations acute CHF short of breath and hypoxic and is requiring oxygen elevated BNP chest x-ray pulmonary congestion and also has lower extremity edema Mild interstial edema on cta chest received Lasix IV 40 mg in the ER and feeling better continue with Lasix 40 mg IV twice daily follow echo telemetry cardiology consult elevated troponin mostly non-ST elevated [place] because of hypertensive urgency/emergency and CHF denies chest pain will follow serial enzymes and echo cardiology consulted morbid obesity needs counseling needs nutrition follow-up obstructive sleep apnea supposed to schedule for sleep study but not done yet not using nocturnal oxygen CPAP while in the hospital diabetes hyperglycemia will place on Lantus and sliding scale and glycemic pharmacy consult follow HbA1c levels and blood sugar levels leukocytosis we will follow repeat labs blood cultures ordered. DVT prophylaxis Lovenox disposition telemetry full code History of Present Illness Chief Complaint: shortness of breath Primary Care Provider: Edson Licona MD 37-year-old male with past medical history significant for type 2 diabetes, uncontrolled hypertension, obstructive sleep apnea noncompliant with CPAP presents with shortness of breath and found to have hypertensive urgency/emergency. For EMS his oxygen saturation 70% and heart rate of 140-160 was placed on oxygen and brought to the ER. In the ER his blood pressures 240s systolic. Tachycardic. And hyperglycemic. Elevated BNP and elevated troponin. Chest x-ray pulmonary congestion. He was initially given IV hydralazine 10 mg with no improvement of BP given IV Lasix 40 mg and IV Lopressor and And then placed on Cardene drip. Currently resting comfortably. Patient denies any chest pain . Denies any dizziness. No headache. No blurred visions or double vision. No runny nose or sore throat. No cough. Appetite is okay. No difficulty swallowing. No nausea. has on and off abdominal pain around his umbilical region but no abdominal pain currently. Normal bowel and bladder movements. Ambulates okay. patient was admitted last May 2022 with hypertensive urgency requiring Cardene drip. last admission he was also found to have possible sleep apnea as he was requiring nocturnal oxygen. He was discharged home on nocturnal oxygen and advised for sleep study. He had a home sleep study which showed moderate sleep apnea and was advised to get full formal study. But patient did not had formal sleep study yet. He is also states because of miscommunication he canceled the home oxygen set up and not using oxygen currently at home. He was discharged on Coreg, lisinopril and hydrochlorothiazide. Patient states he takes Coreg only once daily. And also he forgets and on average takes Medications only 5 times a week. Past medical history. As mentioned above Past surgical history. Tonsillectomy. Palatopharyngoplasty. social history. No smoking. Alcohol occasional. No drug use. Family history. Maternal grandfather had hypertension. Heart disorder. Aunt has diabetes. Allergies Allergy/AdvReac Type Severity Reaction Status Date / Time No Known Allergies Verified 08/01/23 23:19 Home Medications Medication Instructions Recorded Confirmed Type famotidine 20 mg tablet 20 mg PO DAILY PRN 05/05/22 08/01/23 History INDIGESTION/HEARTBURN fluticasone propionate 50 2 spray intranasal DAILY PRN 05/05/22 08/01/23 History mcg/actuation nasal Congestion spray,suspension hydrochlorothiazide 25 mg tablet 25 mg PO .[id number] 05/05/22 08/01/23 Hi story carvedilol 25 mg tablet 25 mg PO .[id number] 08/01/23 08/01/23 History lisinopril 40 mg tablet (Zestril) 40 mg PO .[id number] 08/01/23 08/01/23 History Past Med/Surg History Problem List (Updated 08/02/23 @ 08:33 by Estephania Stewart PA-C) Acute heart failure with preserved ejection fraction Acute respiratory failure with hypoxia Hypertensive emergency (Acute) Hyperglycemia (Acute) Elevated brain natriuretic peptide (BNP) level (Acute) Non-ST elevation [place] (NSTEMI) (Acute) Acute dyspnea (Acute) JOSE RAUL (obstructive sleep apnea) DMII (diabetes mellitus, type 2) Morbid obesity Hypertensive urgency (Acute) Elevated troponin I level (Acute) LVH (left ventricular hypertrophy) (Acute) Abnormal EKG (Acute) Bronchitis (Acute) HTN (hypertension) (Acute) Noncompliance with medications (Acute) Medical History (Updated 08/02/23 @ 08:33 by Estephania Stewart PA-C) HTN (hypertension) Surgical History No pertinent past surgical history Social History Smoking Status: Never smoker Second Hand Exposure: No; Do You Dip or Chew Tobacco: No; Tobacco Cessation Education Requested by Patient: No Hx Alcohol Use: No Hx Substance Use: No Preferred Language: [place] Leonean Communication Ability: Effective [employer] Required: No Beliefs That Will Affect Care: None Current Living Situation: Family Current Living Situation Comment: lives with parents Other Information That Helps Us Care for You: No Feels Safe at Home: Yes Safety Concerns: Feels Safe At This Time Assistive Devices: None Review of Systems Review of Systems: All systems reviewed & are unremarkable except as noted in HPI & below Physical Exam Physical Exam: General- Not in distress. Head- atraumatic Eyes- PERRL. ENT- oropharynx clear Neck- supple, no JVD. Lungs- clear to auscultation no wheezing or crackles. Heart- regular rate and rhythm; no murmur, no gallop. Abdomen- normal bowel sounds, soft, nontender, no distension Extremities- b/l pretibial edema present , no erythema seen., Neuro- alert, oriented PERRL, no facial palsy; no dysarthria; moves extremities. Results & Data Results & Data Vital Signs (Past 12 Hours) Vital Signs Temp Pulse Pulse Resp BP BP Pulse Ox 08/02/23 02:00 100 H 21 152/98 H 98 08/02/23 01:12 102 H 20 131/108 H 98 08/02/23 00:54 100 H 08/02/23 00:00 105 H 19 167/115 H 94 08/01/23 23:30 98 H 29 H 158/108 H 95 08/01/23 23:17 101 H 184/126 H 08/01/23 23:00 101 H 32 H 181/120 H 95 08/01/23 22:52 128 H 259/180 H 08/01/23 22:26 130 H 37 H 259/180 H 96 08/01/23 21:48 97 08/01/23 21:27 96 08/01/23 21:26 124 H 40 H 274/191 H 96 08/01/23 21:14 37.1 C 143 H 41 H 273/202 H 78 L 08/01/23 21:04 137 H O2 Del Method O2 Flow Rate 08/02/23 02:00 Nasal Cannula 4 08/02/23 01:12 Nasal Cannula 4 08/02/23 00:54 08/02/23 00:00 Nasal Cannula 4 08/01/23 23:30 Nasal Cannula 4 08/01/23 23:17 08/01/23 23:00 Nasal Cannula 4 08/01/23 22:52 08/01/23 22:26 Nasal Cannula 4 08/01/23 21:48 Nasal Cannula 4 08/01/23 21:27 Nasal Cannula 4 08/01/23 21:26 Nasal Cannula 4 08/01/23 21:14 Room Air 08/01/23 21:04 Diagnostic Findings Laboratory Results WBC 17.58 K/ul (4.8-10.8) H 08/01/23 21:07 RBC 6.27 M/uL (4.70-6.10) H 08/01/23 21:07 Hgb 16.2 g/dl (14.0-18.0) 08/01/23 21:07 POC Hgb 17.0 g/dl (14.0-18.0) 08/01/23 21:44 Hct 50.4 % (42.0-52.0) 08/01/23 21:07 POC Hct 50 % (42-52) 08/01/23 21:44 MCV 80.4 fL (80.0-100.0) 08/01/23 21:07 MCH 25.8 pg (25.0-34.0) 08/01/23 21:07 MCHC 32.1 g/dL (32.0-36.0) 08/01/23 21:07 RDW Std Deviation 36.5 fL (36.4-46.3) 08/01/23 21:07 RDW Coeff of Jorge Luis 12.7 % (11.5-14.5) 08/01/23 21:07 Plt Count 411 K/uL (130-400) H 08/01/23 21:07 MPV 9.9 fL (9.4-12.4) 08/01/23 21:07 Immature Gran % (Auto) 0.5 % 08/01/23 21:07 Neut % (Auto) 70.5 % 08/01/23 21:07 Lymph % (Auto) 19.6 % 08/01/23 21:07 Vermilion % (Auto) 6.4 % 08/01/23 21:07 Eos % (Auto) 2.3 % 08/01/23 21:07 Baso % (Auto) 0.7 % 08/01/23 21:07 Neut # (Auto) 12.39 K/uL (1.40-6.50) H 08/01/23 21:07 Lymph # (Auto) 3.44 K/uL (1.20-3.40) H 08/01/23 21:07 Vermilion # (Auto) 1.13 K/uL (0.11-0.59) H 08/01/23 21:07 Eos # (Auto) 0.41 K/uL (0.00-0.50) 08/01/23 21:07 Baso # (Auto) 0.12 K/uL (0.00-0.20) 08/01/23 21:07 Immature Gran # (Auto) 0.09 K/uL (0.01-0.20) 08/01/23 21:07 PT 11.1 Seconds (9.0-12.0) 08/01/23 21:07 INR 1.0 (0.9-1.1) 08/01/23 21:07 VBG pH 7.40 (7.36-7.41) 08/01/23 21:40 VBG pCO2 49 mmHg (38-50) 08/01/23 21:40 VBG pO2 52 mmHg 08/01/23 21:40 VBG HCO3 30 mmol/L 08/01/23 21:40 VBG O2 Saturation 85.0 % 08/01/23 21:40 VBG Base Excess 4.5 mEq/L 08/01/23 21:40 POC Sodium 137 mmol/L (135-144) 08/01/23 21:44 Sodium 135 mmol/L (136-145) L 08/01/23 21:07 POC Potassium 4.1 mmol/L (3.3-5.0) 08/01/23 21:44 Potassium 3.6 mmol/L (3.5-5.1) 08/01/23 21:07 POC Chloride 100 mmol/L (101-112) L 08/01/23 21:44 Chloride 98 mmol/L (98-107) 08/01/23 21:07 Carbon Dioxide 28 mmol/L (21-32) 08/01/23 21:07 POC Total CO2 29 mmol/L (24-31) 08/01/23 21:44 Anion Gap 9 (3-11) 08/01/23 21:07 POC Anion Gap 13.0 mmol/L (16-25) L 08/01/23 21:44 POC BUN 19 mg/dl (7-18) H 08/01/23 21:44 BUN 15 mg/dl (6-23) 08/01/23 21:07 Creatinine 1.03 mg/dl (0.6-1.4) 08/01/23 21:07 POC Creatinine 0.9 mg/dl (0.6-1.3) 08/01/23 21:44 Est Cr Clr Drug Dosing 165.1 ml/min 08/01/23 21:07 Est GFR ( Amer) 107.1 ml/min 08/01/23 21:07 Est GFR (Non-Af Amer) 92.4 ml/min 08/01/23 21:07 BUN/Creatinine Ratio 14.6 (10-20) 08/01/23 21:07 Glucose 350 mg/dl (70-99(Fasting)) H* 08/01/23 21:07 POC Glucose (other) 356 mg/dl (70-99) H* 08/01/23 21:44 Calcium 8.9 mg/dl (8.6-10.3) 08/01/23 21:07 POC Ioniz Calcium Fuentes 1.10 mmol/l (1.12-1.32) L 08/01/23 21:44 Magnesium 1.9 mg/dl (1.7-2.4) 08/01/23 21:07 Total Bilirubin 0.9 mg/dl (0.2-1.0) 08/01/23 21:07 AST 35 U/L (13-39) 08/01/23 21:07 ALT 42 U/L (7-52) 08/01/23 21:07 Alkaline Phosphatase 93 U/L (34-104) 08/01/23 21:07 Troponin I High Sens 155.9 pg/ml (0-20) H* D 08/02/23 00:26 B-Natriuretic Peptide 928 pg/ml (0-100) H 08/01/23 21:07 Total Protein 8.0 gm/dl (6.0-8.3) 08/01/23 21:07 Albumin 3.8 gm/dl (3.4-5.0) 08/01/23 21:07 Globulin 4.2 gm/dl (2.5-4.0) H 08/01/23 21:07 Albumin/Globulin Ratio 0.9 (0.9-2) 08/01/23 21:07 Urine Color Yellow 08/01/23 23:08 Urine Appearance Clear (Clear) 08/01/23 23:08 Urine pH 5.5 (4.5-7.5) 08/01/23 23:08 Ur Specific Wheeler 1.034 (1.000-1.030) H 08/01/23 23:08 Urine Protein 3+ (Negative) H 08/01/23 23:08 Urine Glucose (UA) 2+ (Negative) H 08/01/23 23:08 Urine Ketones Negative (Negative) 08/01/23 23:08 Urine Blood Negative (Negative) 08/01/23 23:08 Urine Nitrite Negative (Negative) 08/01/23 23:08 Urine Bilirubin Negative (Negative) 08/01/23 23:08 Urine Urobilinogen Negative (Negative) 08/01/23 23:08 Ur Leukocyte Esterase Negative (Negative) 08/01/23 23:08 Urine WBC (Auto) 0-5 /hpf (0-5) 08/01/23 23:08 Urine RBC (Auto) 0-2 /hpf (0-2) 08/01/23 23:08 U Hyaline Cast (Auto) 6-10 /lpf (0-2) H 08/01/23 23:08 U Epithel Cells (Auto) 3-5 /hpf (0-2) H 08/01/23 23:08 Urine Bacteria (Auto) None Seen (None Seen) 08/01/23 23:08 Hyaline Casts Present /lpf (None Presnt) A 08/01/23 23:08 Granular Casts Present /lpf (None Prsent) A 08/01/23 23:08 Urine Opiates Screen Neg (Neg) 08/01/23 23:08 Ur Methadone, Qual Neg (Neg) 08/01/23 23:08 Urine Barbiturates Neg (Neg) 08/01/23 23:08 Ur Phencyclidine (PCP) Neg (Neg) 08/01/23 23:08 U Amphetamin/Meth Scrn Neg (Neg) 08/01/23 23:08 MDMA (Ecstasy) Screen Neg (Neg) 08/01/23 23:08 U Benzodiazepines Scrn Neg (Neg) 08/01/23 23:08 Ur Cocaine Metabolite Neg (Neg) 08/01/23 23:08 U Marijuana (THC) Screen Neg (Neg) 08/01/23 23:08 Adenovirus (PCR) Not Detected (NotDetected) 08/01/23 21:08 B. pertussis DNA (PCR) Not Detected (NotDetected) 08/01/23 21:08 B.parapertussis DNA PCR Not Detected (NotDetected) 08/01/23 21:08 C. pneumoniae DNA (PCR) Not Detected (NotDetected) 08/01/23 21:08 Coronavirus OC43 (PCR) Not Detected (NotDetected) 08/01/23 21:08 Coronavirus HKU1 (PCR) Not Detected (NotDetected) 08/01/23 21:08 Coronavirus 229E (PCR) Not Detected (NotDetected) 08/01/23 21:08 SARS-CoV-2 (PCR) Not Detected (NotDetected) 08/01/23 21:08 Coronavirus NL63 (PCR) Not Detected (NotDetected) 08/01/23 21:08 Human Metapneumovir PCR Not Detected (NotDetected) 08/01/23 21:08 Influenza Type A (PCR) Not Detected (NotDetected) 08/01/23 21:08 Influenza Type B (PCR) Not Detected (NotDetected) 08/01/23 21:08 M. pneumoniae (PCR) Not Detected (NotDetected) 08/01/23 21:08 Parainfluenza 1 (PCR) Not Detected (NotDetected) 08/01/23 21:08 Parainfluenza 2 (PCR) Not Detected (NotDetected) 08/01/23 21:08 Parainfluenza 3 (PCR) Not Detected (NotDetected) 08/01/23 21:08 Parainfluenza 4 (PCR) Not Detected (NotDetected) 08/01/23 21:08 RSV (PCR) Not Detected (NotDetected) 08/01/23 21:08 Entero/Rhino (PCR) Not Detected (NotDetected) 08/01/23 21:08 Impressions Chest CTA 08/01/23 21:14 Exam(s): CTA CHEST EXAM: CT Angiography Chest With Intravenous Contrast CLINICAL HISTORY: Reason for exam: PE; tachycardia; hypoxia; SOB. TECHNIQUE: Axial computed tomographic angiography images of the chest with intravenous contrast. CTDI is 28.14 mGy and DLP is 993.24 mGy-cm. Automated exposure control was utilized for the study. A dose lowering technique was utilized adhering to the principles of ALARA. MIP reconstructed images were created and reviewed. COMPARISON: No relevant prior studies available. FINDINGS: Pulmonary arteries: No central pulmonary emboli. Distal emboli cannot be entirely excluded. Aorta: No acute findings. No thoracic aortic aneurysm. Lungs: Perihilar and bibasilar atelectasis. Mild interstitial edema. No mass. Pleural space: Small right pleural effusion. No pneumothorax. Heart: Unremarkable. No cardiomegaly. No significant pericardial effusion. No evidence of RV dysfunction. Bones/joints: No acute fracture. No dislocation. Soft tissues: Unremarkable. Lymph nodes: Unremarkable. No enlarged lymph nodes. IMPRESSION: 1. No central pulmonary emboli. Distal emboli cannot be entirely excluded. 2. Perihilar and bibasilar atelectasis. Mild interstitial edema. Cardiomegaly. Electronically signed by: Suellen Amador MD 08/01/23 22:35 PM ECG Additional Comments: ECG sinus tachycardia rate of 136. Possible left atrial enlargement.. Incomplete left bundle branch block. Minimal voltage criteria for LVH. Code Status & VTE Plan VTE Prophylaxis Plan VTE Prophylaxis will be ordered: Yes
[2023-08-02] MEDS: STAT IV Infusion **Titration per Protocol STA (03:07)
[2023-08-02] MEDS ORDERED: CARBOHYDRATES FOR HYPOGLYCEMIA PO PRN (04:39)
[2023-08-02] MEDS ORDERED: POLYETHYLENE (MIRALAX) 17 GM PACK PO PRN (04:39)
[2023-08-02] MEDS ORDERED: GLUCAGON FOR INJ 1 MG VIAL SQ PRN (04:39)
[2023-08-02] MEDS ORDERED: NITROGLYCERIN SL 0.4 MG/TAB TAB SL PRN (04:39)
[2023-08-02] MEDS ORDERED: GLUCOSE 10 TAB/TUBE PO PRN (04:39)
[2023-08-02] MEDS ORDERED: PHARMACY GLYCEMIC MGMT CONSULT PRN (04:39)
[2023-08-02] MEDS ORDERED: ACETAMINOPHEN 325 MG TAB PO PRN (04:39)
[2023-08-02] MEDS ORDERED: GLUCOSE 40% GEL 15 GM TUBE PO PRN (04:39)
[2023-08-02] MEDS ORDERED: DEXTROSE 50% 50 ML SYRINGE IV PRN (04:39)
[2023-08-02] MEDS: INSULIN ASPART PER UNIT CHARGE SC SCH (05:02)
[2023-08-02 05:17] LABS: Basophils # (auto) 0.12 K/uL (0.00-0.20); Basophils % (auto) 0.8 %; Eosinophils # (auto) 0.09 K/uL (0.00-0.50); Eosinophils % (auto) 0.6 %; Hematocrit (blood only) 45.4 % (42.0-52.0); Hemoglobin 14.8 g/dl (14.0-18.0); Immature Granulocytes # (auto) 0.07 K/uL (0.01-0.20); Immature Granulocytes % (auto) 0.4 %; Lymphocytes % (auto) 15.8 %; Mean Corpuscular Hemoglobin 25.9 pg (25.0-34.0); Mean Corpuscular Hgb Conc 32.6 g/dL (32.0-36.0); Mean Corpuscular Volume 79.5 fL (80.0-100.0); Mean Platelet Volume 9.7 fL (9.4-12.4); Monocytes # (auto) 1.07 K/uL (0.11-0.59); Monocytes % (auto) 6.8 %; Neutrophils # (auto) 11.97 K/uL (1.40-6.50); Neutrophils % (auto) 75.6 %; Platelet Count 397 K/uL (130-400); RDW Standard Deviation 36.5 fL (36.4-46.3); Red Blood Count 5.71 M/uL (4.70-6.10); White Blood Count 15.82 K/ul (4.8-10.8)
[2023-08-02 05:24] LABS: BUN Creatinine Ratio 16.7 (10-20); Creatinine Clr Calc Pharmacy 187.1 ml/min; Est GFR (Non-African American) 108.7 ml/min; Magnesium 1.7 mg/dl (1.7-2.4); Potassium 3.4 mmol/L (3.5-5.1)
[2023-08-02 05:42] LABS: Troponin I High Sensitivity 152.3 pg/ml (0-20)
[2023-08-02] MEDS: MAGNESIUM SULFATE / D5W 1 GM/100 ML BAG IV ONE (06:02)
[2023-08-02] MEDS: POTASSIUM CHLORIDE CRTAB 20 MEQ TABCR PO STA (06:02)
--- NOTE | 2023-08-02 07:11 | XRay Report ---
XR chest 1V portable CLINICAL HISTORY: Dyspnea COMPARISON STUDY: Chest CT August 01, 2023 at 10:01 PM and chest radiograph May 05, 2022. FINDINGS: There is no pneumothorax thorax or pleural effusion. Moderate cardiomegaly is noted with in terstitial thickening. Bilateral airspace opacities are present. IMPRESSION: 1. Cardiomegaly with interstitial thickening consistent with pulmonary edema. 2. Hazy bilateral opacities which likely reflect alveolar pulmonary edema. A superimposed infectious process is considered less likely. ACT 112: Negative or not required by law. Electronically signed by: Marito Sanders M.D. 08/02/2023 7:09 AM
[2023-08-02 07:22] LABS: Estimated Average Glucose 249 mg/dl; Hemoglobin A1C 10.3 % (4.5-5.6)
[2023-08-02] MEDS: carvediloL 25 MG TAB PO SCH (07:32)
--- NOTE | 2023-08-02 08:08 | Electrocardiogram Report ---
Test Reason : Blood Pressure : / mmHG Vent. Rate : 136 BPM Atrial Rate : 136 BPM P-R Int : 156 ms QRS Dur : 114 ms QT Int : 282 ms P-R-T Axes : 041 031 -10 degrees QTc Int : 424 ms Sinus tachycardia Left atrial enlargement Minor Non-specific intra-ventricular conduction delay Abnormal ECG When compared with ECG of 05-MAY-2022 17:51, Vent. rate has increased BY 45 BPM Criteria for Septal infarct no longer present Confirmed by Edson Cody ([id number]) on 08/02/2023 8:08:17 AM Referred By: REFERRED SELF Confirmed By:Edson Cody
[2023-08-02] MEDS: FUROSEMIDE 40 MG/4 ML VIAL IV SCH (08:25)
[2023-08-02] MEDS: lisinopril 40 MG TAB PO SCH (08:25)
[2023-08-02] MEDS: ENOXAPARIN INJ 40 MG/0.4 ML SYR SQ SCH (08:25)
[2023-08-02] MEDS: LANTUS PER UNIT CHARGE SQ ONE (08:28)
--- NOTE | 2023-08-02 08:41 | Cardiology Consultation ---
Date of Consultation August 02, 2023 Assessment & Plan (1) Hypertensive emergency: (2) Elevated troponin I level: (3) Acute respiratory failure with hypoxia: (4) LVH (left ventricular hypertrophy): Plan Patient admitted with hypoxia/acute pulm edema and hypertensive emergency in setting of non compliance with oral antihypertensives and morbid obesity and likely untreated JOSE RAUL. Treated in ER with IV hydralazine, started on Nicardipine gtt, and IV lasix. BP improved this morning. Nicardipine gtt weaned off. Continue carvedilol 25 mg BID, lisinopril 40 mg. HCTZ was discontinued on admission in favor of IV lasix. Continue IV lasix today. Volume status improving. Oxygen saturations improving. Potassium was low this morning. Supplemented. Add spironolactone 12.5 mg for fluid status, BP support, and hypokalemia. Good diuresis overnight. Monitor I+O's. Minimally elevated troponin consistent with demand ischemia in setting of hypoxia, hypertensive urgency. Moderate/severe LVH with mild global hypokinesis noted, LVEF 45-50%. Likely hypertensive induced. Continue carvedilol, lisinopril. Adding spironolactone/furosemide. Add ASA 81 mg daily and statin given uncontrolled DM and elevated troponin. Check lipids tomorrow AM while fasting Once BP and volume status improves, consider outpatient 2 Day nuclear Lexiscan stress test given elevated troponin and mild LV dysfunction. Uncontrolled DM with Hbg A1C >10. Needs diabetic management. Needs to have sleep study and treatment for probable JOSE RAUL. Case discussed with Dr. Samayoa. Will follow I spent a total of 65 minutes on the date of service in preparation, delivery, and documentation of the care provided to this patient, excluding any time spent in the performance of separately billed services. Estephania Stewart PA-C Department of Cardiology, [facility] [address] This chart was completed in part utilizing Speech Voice Recognition Software. Grammatical errors, random word insertions, pronoun errors, and incomplete sentences are an occasional consequence of this system due to software limitations, ambient noise, and hardware issues. Any formal questions or concerns about the content, text, or information contained within the body of this dictation should be directly addressed to the provider for clarification. Supervising Physician Co-Signing Physician Notes Patient was seen and personally examined. Full assessment and plan as outlined above. Care and management discussed and personally endorsed with advanced provider 37-year-old male with morbid obesity, hypertension, presumed obstructive sleep apnea with prior hospitalization for hypertensive urgency presenting now with recurrence off medical therapy Patient is responding to resumption of prior medications with blood pressure substantially improved, respiratory status improved following diuresis. Plan as outlined above Began to address needs for continued medical compliance I spent a total of 20 minutes on the date of service in preparation, delivery, and documentation of the care provided to this patient, excluding any time spent in the performance of separately billed services. History of Present Illness Reason for Consultation: Hypertensive Emergency; CHF Requesting Physician: Dr. Whitfield Attending Physician: Dr. Samayoa History of Present Illness Patient is a 37 year old male admitted for hypoxia, hypertensive emergency. History includes: 1. Hypertension 2. Morbid obesity 3. JOSE RAUL - not currently treated. 4. Diabetes 5. Non compliant with medications and appts EMS was summoned to patient's home yesterday and found patient to be hypoxic with oxygen saturations in the 70's, tachycardic with HR in the 140's and hypertensive with systolic BP > 240. Brought to the ER. EKG demonstrated Sinus tach at 136 with non specific conduction delay. No chest pain reported. Treated with IV hydralazine and IV furosemide in the ER. Chest xray with pulm vascular congestion. chest CTA performed but was limited due to body habitus. No central PE noted. He was placed on Nicardipine gtt and taken to the ICU. Troponin initially 104, increasing to 155 and remained flat likely demand ischemia in setting of hypoxia, tachycardia, hypertensive emergency. He admits he only takes his medications several days per week as an outpatient. He has not had outpatient f/u with PCP or other provider in > 1 year. He was to have outpatient sleep study for JOSE RAUL but this did not occur. At time of consult this morning, Nicardipine gtt has been weaned and BP improving. Diuresing overnight 2.3 L output noted. Improving dyspnea and oxygen status. Still on 4L NC. He admits to not watching his diet and eating foods higher in sodium. He does not monitor BP at home. He denies recent chest pain. Currently reports feeling "good". Allergies Allergy/AdvReac Type Severity Reaction Status Date / Time No Known Allergies Verified 08/01/23 23:19 Home Medications Medication Instructions Recorded Confirmed Type famotidine 20 mg tablet 20 mg PO DAILY PRN 05/05/22 08/01/23 History INDIGESTION/HEARTBURN fluticasone propionate 50 2 spray intranasal DAILY PRN 05/05/22 08/01/23 History mcg/actuation nasal Congestion spray,suspension hydrochlorothiazide 25 mg tablet 25 mg PO .[id number] 05/05/22 08/01/23 History carvedilol 25 mg tablet 25 mg PO .[id number] 08/01/23 08/01/23 History lisinopril 40 mg tablet (Zestril) 40 mg PO .[id number] 08/01/23 08/01/23 History Patient History Medical History HTN (hypertension) Surgical History No pertinent past surgical history Social History Smoking Status: Never smoker Second Hand Exposure: No; Do You Dip or Chew Tobacco: No; Tobacco Cessation Education Requested by Patient: No Hx Alcohol Use: No Hx Substance Use: No Preferred Language: Bengali Communication Ability: Effective Mule Developer Required: No Beliefs That Will Affect Care: None Current Living Situation: Family Current Living Situation Comment: lives with parents Other Information That Helps Us Care for You: No Feels Safe at Home: Yes Safety Concerns: Feels Safe At This Time Assistive Devices: None Review of Systems Review of Systems: All systems reviewed & are unremarkable except as noted in HPI & below Physical Exam Constitutional: WD/WN, vitals as above + morbidly obese; no acute distress Neck: + thick neck Respiratory: no labored breathing Auscultation: + diminished lung sounds; no crackles and no rales Cardiovascular: Rate/Rhythm: regular rate and regular rhythm Heart Sounds: no murmur (distant heart sounds) Extremities: + edema (1+ LE edema b/l ) Gastrointestinal (Abdomen): Percussion/Palpation: abdomen soft; abdomen nontender Skin: no rashes, warm and dry Neurologic: PERRL, EOMI, accommodation nl, no face palsy, no dysarthria Psychiatric: A+Ox3, euthymic affect Results & Data Vital Signs (Past 12 Hours) Vital Signs Temp Pulse Pulse Resp BP BP BP 08/02/23 08:12 90 08/02/23 07:30 93 H 15 170/95 H 08/02/23 07:00 90 21 141/92 H 08/02/23 07:00 08/02/23 07:00 36.5 C 08/02/23 06:49 89 20 156/99 H 08/02/23 06:00 36.3 C L 90 18 167/95 H 08/02/23 05:34 96 H 08/02/23 05:30 91 H 159/98 H 08/02/23 05:00 166/88 H 08/02/23 05:00 90 18 08/02/23 04:47 36.7 C 93 H 18 142/102 H 08/02/23 04:30 142/102 H 08/02/23 04:30 97 H 19 08/02/23 04:29 99 H 18 08/02/23 04:29 135/102 H 08/02/23 04:21 105 H 19 08/02/23 04:21 36.3 C L 171/104 H 08/02/23 03:00 101 H 21 144/108 H 08/02/23 02:00 100 H 21 152/98 H 08/02/23 01:12 102 H 20 131/108 H 08/02/23 00:54 100 H 08/02/23 00:00 105 H 19 167/115 H 08/01/23 23:30 98 H 29 H 158/108 H 08/01/23 23:17 101 H 184/126 H 08/01/23 23:00 101 H 32 H 181/120 H 08/01/23 22:52 128 H 259/180 H 08/01/23 22:26 130 H 37 H 259/180 H 08/01/23 21:48 08/01/23 21:27 08/01/23 21:26 124 H 40 H 274/191 H 08/01/23 21:14 37.1 C 143 H 41 H 273/202 H 08/01/23 21:04 137 H Pulse Ox O2 Del Method O2 Flow Rate FiO2 08/02/23 08:12 08/02/23 07:30 94 Nasal Cannula 4 08/02/23 07:00 96 Nasal Cannula 4 08/02/23 07:00 Nasal Cannula 4 08/02/23 07:00 08/02/23 06:49 98 Nasal Cannula 4 08/02/23 06:00 97 Nasal Cannula 4 36 08/02/23 05:34 08/02/23 05:30 96 Nasal Cannula 4 36 08/02/23 05:00 08/02/23 05:00 97 08/02/23 04:47 97 Nasal Cannula 2 08/02/23 04:30 08/02/23 04:30 96 08/02/23 04:29 97 08/02/23 04:29 08/02/23 04:21 08/02/23 04:21 98 Nasal Cannula 4 08/02/23 03:00 99 Nasal Cannula 4 08/02/23 02:00 98 Nasal Cannula 4 08/02/23 01:12 98 Nasal Cannula 4 08/02/23 00:54 08/02/23 00:00 94 Nasal Cannula 4 08/01/23 23:30 95 Nasal Cannula 4 08/01/23 23:17 08/01/23 23:00 95 Nasal Cannula 4 08/01/23 22:52 08/01/23 22:26 96 Nasal Cannula 4 08/01/23 21:48 97 Nasal Cannula 4 08/01/23 21:27 96 Nasal Cannula 4 08/01/23 21:26 96 Nasal Cannula 4 08/01/23 21:14 78 L Room Air 08/01/23 21:04 Laboratory Results Cardiac Enzymes 08/01/23 08/02/23 08/02/23 Range/Units 21:07 00:26 04:44 AST 35 (13-39) U/L Troponin I High Sens 104.0 H* 155.9 H* D 152.3 H* (0-20) pg/ml B-Natriuretic Peptide 928 H (0-100) pg/ml Coagulation 08/01/23 Range/Units 21:07 PT 11.1 (9.0-12.0) Seconds B-Natriuretic Peptide 928 H (0-100) pg/ml CBC 08/01/23 08/02/23 Range/Units 21:07 04:44 WBC 17.58 H 15.82 H (4.8-10.8) K/ul RBC 6.27 H 5.71 (4.70-6.10) M/uL Hgb 16.2 14.8 (14.0-18.0) g/dl Hct 50.4 45.4 (42.0-52.0) % Plt Count 411 H 397 (130-400) K/uL Neut # (Auto) 12.39 H 11.97 H (1.40-6.50) K/uL Lymph # (Auto) 3.44 H 2.50 (1.20-3.40) K/uL [place] # (Auto) 1.13 H 1.07 H (0.11-0.59) K/uL Eos # (Auto) 0.41 0.09 (0.00-0.50) K/uL Baso # (Auto) 0.12 0.12 (0.00-0.20) K/uL Comprehensive Metabolic Panel 08/01/23 08/02/23 Range/Units 21:07 04:44 Sodium 135 L 136 (136-145) mmol/L Potassium 3.6 3.4 L (3.5-5.1) mmol/L Chloride 98 99 (98-107) mmol/L Carbon Dioxide 28 29 (21-32) mmol/L BUN 15 15 (6-23) mg/dl Creatinine 1.03 0.90 (0.6-1.4) mg/dl Glucose 350 H* 247 H (70-99(Fasting)) mg/dl Calcium 8.9 8.0 L (8.6-10.3) mg/dl AST 35 (13-39) U/L ALT 42 (7-52) U/L Alkaline Phosphatase 93 (34-104) U/L Total Protein 8.0 (6.0-8.3) gm/dl Albumin 3.8 (3.4-5.0) gm/dl Intake and Output 08/01/23 08/02/23 08/02/23 22:59 06:59 14:59 Intake Total 679.167 / 679.167 545.833 / 545.833 Output Total 1825 / 1825 550 / 550 Balance -1145.833 / -1145.833 -4.167 / -4.167 Intake: IV 429.167 / 429.167 185.833 / 185.833 Magnesium Sulfate / D5w 1 gm In 100 / 100 100 ml @ 50 mls/hr IV ONE ONE Rx#:[id number] niCARdipine 25 mg In Sodium 429.167 / 429.167 85.833 / 85.833 Chloride 0.9% 240 ml @ 5 MG/HR 50 mls/hr IV .Q5H JALIL Rx#: [id number] Oral 250 / 250 360 / 360 Output: Urine 1825 / 1825 550 / 550 Other: # Unmeasured Voids 3 Weight 180.7 kg 178 kg Weight Measurement Method Built in [facility] Built in [facility] Diagnostic Findings telemetry reviewed: NSR in the 80's. Echocardiogram completed this morning 08/02/23: LVEF 45-50% diffuse mild hypokinesis. Moderate to severe LVH Limited views of valvular structures - no significant regurg or stenosis EKG reviewed from admission, 08/01/23: Appears sinus tachycardia at 136 bmp Non specific conduction delay Chest xray on admission 08/01/23: IMPRESSION: 1. Cardiomegaly with interstitial thickening consistent with pulmonary edema. 2. Hazy bilateral opacities which likely reflect alveolar pulmonary edema. A stewart perimposed infectious process is considered less likely. Chest CTA report reviewed dated 08/01/23: IMPRESSION: 1. No central pulmonary emboli. Distal emboli cannot be entirely excluded. 2. Perihilar and bibasilar atelectasis. Mild interstitial edema. Cardiomegaly. Prior outside data: Echo results reviewed from May 2022: Interpretation Summary The examination is limited quality but adequate for evaluation of the referral indication. The the ultrasound enhancement agent Definity was administered to improve delineation of the endocardial border with adequate technical results. The LV wall thickness is moderately increased (concentric). The left ventricular wall motion is normal. The qualitative LV ejection fraction is 55-59% (normal). The left ventricular diastolic function is mildly abnormal (grade I). There is no significant valvular pathology. Medications Administered Current Inpatient Medications Acetaminophen (Acetaminophen 325 Mg Tab) 650 mg PO Q4H PRN PRN Reason: Pain or Fever Stop: 09/01/23 04:38 Carvedilol (Carvedilol 25 Mg Tab) 25 mg PO BIDM JALIL Stop: 09/01/23 07:59 Last Admin: 08/02/23 07:32 Dose: 25 mg Dextrose (Dextrose 50% 50 Ml Syringe) 25 - 50 ml IV UD PRN; Protocol PRN Reason: Hypoglycemia Protocol Stop: 09/01/23 04:38 Enoxaparin Sodium (Enoxaparin Inj 40 Mg/0.4 Ml Syr) 40 mg SQ Q12H JALIL Stop: 09/01/23 08:59 Last Admin: 08/02/23 08:25 Dose: 40 mg Furosemide (Furosemide 40 Mg/4 Ml Vial) 40 mg IV BID17 COUNT INCLUDES THE [facility] Stop: 09/01/23 08:59 Last Admin: 08/02/23 08:25 Dose: 40 mg Glucagon (Glucagon For Inj 1 Mg Vial) 1 mg SQ UD PRN; Protocol PRN Reason: Hypoglycemia Protocol Stop: 09/01/23 04:38 Glucose (Glucose 40% Gel 15 Gm Tube) 15 - 30 gm PO UD PRN; Protocol PRN Reason: Hypoglycemia Protocol Stop: 09/01/23 04:38 Glucose (Glucose 10 Tab/Tube) 4 - 8 tab PO UD PRN; Protocol PRN Reason: Hypoglycemia Treatment Stop: 09/01/23 04:38 Nicardipine HCl 25 mg/ Sodium (Chloride) 250 mls @ 50 mls/hr IV .Q5H COUNT INCLUDES THE [facility]; Protocol Stop: 08/31/23 22:14 Last Titration: 08/02/23 08:01 Dose: 2.5 mg/hr, 25 mls/hr Insulin Aspart (Insulin Aspart Per Unit Charge) 0 units SC ACHS COUNT INCLUDES THE [facility] Stop: 09/01/23 04:59 Last Admin: 08/02/23 07:28 Dose: 10 units Insulin Glargine (Lantus Per Unit Charge) 10 units SQ ONE ONE Stop: 08/02/23 09:01 Last Admin: 08/02/23 08:28 Dose: 10 units Lisinopril (Lisinopril 40 Mg Tab) 40 mg PO QAM COUNT INCLUDES THE [facility] Stop: 09/01/23 08:59 Last Admin: 08/02/23 08:25 Dose: 40 mg Miscellaneous (Carbohydrates For Hypoglycemia ) 15 - 30 gm PO UD PRN PRN Reason: Hypoglycemia Protocol Stop: 09/01/23 04:38 Miscellaneous Information (Pharmacy Glycemic Mgmt Consult) 1 each N/A UD PRN PRN Reason: Consult Stop: 09/01/23 04:38 Nitroglycerin (Nitroglycerin Sl 0.4 Mg/Tab Tab) 0.4 mg SL Q5M PRN PRN Reason: Chest Pain Stop: 09/01/23 04:38 Polyethylene Glycol (Polyethylene (Miralax) 17 Gm Pack) 17 gm PO DAILY PRN PRN Reason: Constipation Stop: 09/01/23 04:38
[2023-08-02] MEDS ORDERED: LANTUS PER UNIT CHARGE SQ SCH (09:00)
--- NOTE | 2023-08-02 10:29 | Pharmacy Report ---
Pharmacy Glycemic Short Note 2 - Date of Service August 02, 2023 - Glycemic Short BSG Results (Last 24 hours): 08/01/23 08/01/23 08/02/23 21:07 21:44 04:44 Glucose 350 H* 247 H POC Glucose POC Glucose (other) 356 H* 08/02/23 08/02/23 04:48 06:58 Glucose POC Glucose 223 H 189 H POC Glucose (other) OUTPATIENT ANTIDIABETIC REGIMEN: * No prior meds for DM * A1c = 10.3% ASSESSMENT: * Type 2 diabetic admitted for hypertensive emergency * Latest A1c significantly elevated vs that from 1 year ago (7.1% -->10.3%) * Initial BSGs elevated in 300's but have since trended down with minimal insulin administered. * Will initiate basal/bolus SQ regimen using adjusted BW given BMI > 50 and initial impression that patient may be fairly insulin sensitive. Initial basal dose will be based upon adj BW and "mild" stress level. Rapid acting insulin doses will be based upon adj BW and "moderate" stress level. PLAN FOR INPATIENT GLYCEMIC CONTROL: * Basal insulin * Lantus 10 units SQ BID * Bolus insulin * NovoLog per scale ACHS or Q6hrs while NPO * Goal Range: Low 110 mg/dL - High 140 mg/dL * Correction Factor: 20 mg/dL/unit * Nutritional / Prandial insulin per carb ratio of 1 unit per 7 grams CHO consumed
[2023-08-02] MEDS: SPIRONOLACTONE 12.5 MG TAB PO SCH (13:06)
[2023-08-02] MEDS: ASPIRIN 81 MG ECTAB PO SCH (13:06)
--- NOTE | 2023-08-02 13:33 | Hospitalist Progress Note ---
Date of Service August 02, 2023 Assessment & Plan (1) Hypertensive emergency: Plan: 37-year-old male with past medical history significant for type 2 diabetes, uncontrolled hypertension, obstructive sleep apnea noncompliant with CPAP presents with shortness of breath and found to have hypertensive urgency/emergency. For EMS his oxygen saturation 70% and heart rate of 140-160 was placed on oxygen and brought to the ER. In the ER his blood pressures 240s systolic. Tachycardic. And hyperglycemic. Elevated BNP and elevated troponin. Chest x-ray pulmonary congestion. He was initially given IV hydralazine 10 mg with no improvement of BP given IV Lasix 40 mg and IV Lopressor and And then placed on Cardene drip. Currently resting comfortably. Patient denies any chest pain . Denies any dizziness. No headache. No blurred visions or double vision. No runny nose or sore throat. No cough. Appetite is okay. No difficulty swallowing. No nausea. has on and off abdominal pain around his umbilical region but no abdominal pain currently. Normal bowel and bladder movements. Ambulates okay. patient was admitted last May 2022 with hypertensive urgency requiring Cardene drip. last admission he was also found to have possible sleep apnea as he was requiring nocturnal oxygen. He was discharged home on nocturnal oxygen and advised for sleep study. He had a home sleep study which showed moderate sleep apnea and was advised to get full formal study. But patient did not had formal sleep study yet. He is also states because of miscommunication he canceled the home oxygen set up and not using oxygen currently at home. He was discharged on Coreg, lisinopril and hydrochlorothiazide. Patient states he takes Coreg only once daily. And also he forgets and on average takes Medications only 5 times a week. Acute hypoxic respiratory failure Secondary to acute combined systolic and diastolic heart failure and is complicated by hypertensive emergency Has been requiring 2 L to maintain saturation Hypertensive emergency Noncompliant with his medications ER started on Cardene drip which will be continued Continues home Coreg and lisinopril Hold hydrochlorothiazide as is getting Lasix Appreciate cardiology input and recommendation Blood pressure seems to be controlled with current medications Nicardipine got weaned off, continued with carvedilol 25 mg twice daily and lisinopril 40 mg daily and spironolactone 12.5 mg was added Acute systolic and diastolic heart failure Echo of the heart showed moderate/severe LVH with mild global hypokinesis with EF 45 to 50%, likely hypertension induced Elevated BNP with chest x-ray pulmonary congestion and also has lower extremity edema Received Lasix IV 40 mg in the ER and feeling better Continue with Lasix 40 mg IV twice daily Appreciate cardiology input and recommendation Will monitor electrolytes and kidney function Elevated troponin Secondary to demand ischemia associated with hypertensive urgency Doubt any ACS Morbid obesity Has been ambulant at home and takes care of himself Needs counseling Needs nutrition follow-up Obstructive sleep apnea Supposed to schedule for sleep study but not done yet Not using nocturnal oxygen CPAP while in the hospital Diabetes Hyperglycemia Will place on Lantus and sliding scale and glycemic pharmacy consult Hemoglobin A1c is elevated to 10.3 Continue with SSI Leukocytosis Doubt any infection DVT prophylaxis Lovenox full code Admission and Anticipated Discharge Date Admission Date: August 02, 2023 Subjective 08/02/2023 The patient was seen and examined in ICU with telemetry status He has been feeling much better since admission following diuresis Shortness of breath is better and leg swelling is improved too Denies any chest pain or palpitation Review of Systems Review of Systems: All systems reviewed and are unremarkable except as noted below Physical Exam Physical Exam: Lying in bed without any acute distress Constitutional: well developed, well nourished, + ill appearing and + morbidly obese Eyes: PERRL, conjunctivae normal, anicteric sclerae Neck: trachea midline, no thyromegaly Respiratory: no respiratory distress Auscultation: + diminished lung sounds and + crackles (Minimal crackles at the bases and dependent part) Cardiovascular: Rate/Rhythm: regular rate and regular rhythm; not tachycardic Heart Sounds: normal S1 and normal S2; no murmur Extremities: + edema (1-2+ edema bilaterally) Gastrointestinal (Abdomen): Inspection/Auscultation: + abdomen distended and normal bowel sounds Percussion/Palpation: abdomen soft; abdomen nontender Musculoskeletal: No acute arthritis involving any of the joints Neurologic: normal touch/pain/proprioception and moves all extremities; no focal motor deficits Psychiatric: A+Ox3, euthymic affect Lymphatic: no cervical or axillary lymphadenopathy Results & Data Results & Data Vital Signs (Past 12 Hours) Vital Signs Temp Pulse Pulse Resp BP BP BP 08/02/23 11:00 130/76 08/02/23 11:00 79 19 08/02/23 10:30 75 14 106/66 08/02/23 10:00 77 15 138/84 08/02/23 09:31 81 17 108/66 08/02/23 09:00 91 H 27 H 115/89 08/02/23 08:30 90 17 150/91 H 08/02/23 08:12 90 08/02/23 08:00 89 17 128/89 08/02/23 07:30 93 H 15 170/95 H 08/02/23 07:00 90 21 141/92 H 08/02/23 07:00 08/02/23 07:00 36.5 C 08/02/23 06:49 89 20 156/99 H 08/02/23 06:00 36.3 C L 90 18 167/95 H 08/02/23 05:34 96 H 08/02/23 05:30 91 H 159/98 H 08/02/23 05:00 166/88 H 08/02/23 05:00 90 18 08/02/23 04:47 36.7 C 93 H 18 142/102 H 08/02/23 04:30 142/102 H 08/02/23 04:30 97 H 19 08/02/23 04:29 99 H 18 08/02/23 04:29 135/102 H 08/02/23 04:21 105 H 19 08/02/23 04:21 36.3 C L 171/104 H 08/02/23 03:00 101 H 21 144/108 H 08/02/23 02:00 100 H 21 152/98 H Pulse Ox O2 Del Method O2 Flow Rate FiO2 08/02/23 11:00 08/02/23 11:00 93 08/02/23 10:30 95 Nasal Cannula 2 08/02/23 10:00 92 Nasal Cannula 2 08/02/23 09:31 93 Nasal Cannula 2 08/02/23 09:00 96 Nasal Cannula 2 08/02/23 08:30 92 Nasal Cannula 2 08/02/23 08:12 08/02/23 08:00 95 Nasal Cannula 4 08/02/23 07:30 94 Nasal Cannula 4 08/02/23 07:00 96 Nasal Cannula 4 08/02/23 07:00 Nasal Cannula 4 08/02/23 07:00 08/02/23 06:49 98 Nasal Cannula 4 08/02/23 06:00 97 Nasal Cannula 4 36 08/02/23 05:34 08/02/23 05:30 96 Nasal Cannula 4 36 08/02/23 05:00 08/02/23 05:00 97 08/02/23 04:47 97 Nasal Cannula 2 08/02/23 04:30 08/02/23 04:30 96 08/02/23 04:29 97 08/02/23 04:29 08/02/23 04:21 08/02/23 04:21 98 Nasal Cannula 4 08/02/23 03:00 99 Nasal Cannula 4 08/02/23 02:00 98 Nasal Cannula 4 Laboratory Results Short CBC 08/01/23 08/02/23 Range/Units 21:07 04:44 WBC 17.58 H 15.82 H (4.8-10.8) K/ul Hgb 16.2 14.8 (14.0-18.0) g/dl Hct 50.4 45.4 (42.0-52.0) % Plt Count 411 H 397 (130-400) K/uL BMP 08/01/23 08/02/23 21:07 04:44 Sodium 135 L 136 Potassium 3.6 3.4 L Chloride 98 99 Carbon Dioxide 28 29 BUN 15 15 Creatinine 1.03 0.90 Glucose 350 H* 247 H Calcium 8.9 8.0 L Liver Function 08/01/23 Range/Units 21:07 Total Bilirubin 0.9 (0.2-1.0) mg/dl AST 35 (13-39) U/L ALT 42 (7-52) U/L Alkaline Phosphatase 93 (34-104) U/L Albumin 3.8 (3.4-5.0) gm/dl Urine 08/01/23 Range/Units 23:08 Urine Color Yellow Urine Appearance Clear (Clear) Urine pH 5.5 (4.5-7.5) Ur Specific [place] 1.034 H (1.000-1.030) Urine Protein 3+ H (Negative) Urine Glucose (UA) 2+ H (Negative) Medications Administered Current Inpatient Medications Acetaminophen (Acetaminophen 325 Mg Tab) 650 mg PO Q4H PRN PRN Reason: Pain or Fever Stop: 09/01/23 04:38 Aspirin (Aspirin 81 Mg Ectab) [facility] [place] Stop: 09/01/23 11:59 Last Admin: 08/02/23 13:06 Dose: 81 mg Carvedilol (Carvedilol 25 Mg Tab) 25 mg PO BIDM [facility] Stop: 09/01/23 07:59 Last Admin: 08/02/23 07:32 Dose: 25 mg Dextrose (Dextrose 50% 50 Ml Syringe) 25 - 50 ml IV UD PRN; Protocol PRN Reason: Hypoglycemia Protocol Stop: 09/01/23 04:38 Enoxaparin Sodium (Enoxaparin Inj 40 Mg/0.4 Ml Syr) 40 mg SQ Q12H [facility] Stop: 09/01/23 08:59 Last Admin: 08/02/23 08:25 Dose: 40 mg Furosemide (Furosemide 40 Mg/4 Ml Vial) 40 mg IV BID17 [facility] Stop: 09/01/23 08:59 Last Admin: 08/02/23 08:25 Dose: 40 mg Glucagon (Glucagon For Inj 1 Mg Vial) 1 mg SQ UD PRN; Protocol PRN Reason: Hypoglycemia Protocol Stop: 09/01/23 04:38 Glucose (Glucose 40% Gel 15 Gm Tube) 15 - 30 gm PO UD PRN; Protocol PRN Reason: Hypoglycemia Protocol Stop: 09/01/23 04:38 Glucose (Glucose 10 Tab/Tube) 4 - 8 tab PO UD PRN; Protocol PRN Reason: Hypoglycemia Treatment Stop: 09/01/23 04:38 Nicardipine HCl 25 mg/ Sodium (Chloride) 250 mls @ 0 mls/hr IV .Q0M [facility]; Protocol Stop: 08/31/23 22:14 Last Titration: 08/02/23 09:15 Dose: 0 mg/hr, 0 mls/hr Insulin Aspart (Insulin Aspart Per Unit Charge) 0 units SC ACHS [facility] Stop: 09/01/23 04:59 Last Admin: 08/02/23 11:42 Dose: 14 units Insulin Glargine (Lantus Per Unit Charge) 10 units SQ BID [facility] Stop: 09/01/23 20:59 Lisinopril (Lisinopril 40 Mg Tab) 40 mg PO QAM [facility] Stop: 09/01/23 08:59 Last Admin: 08/02/23 08:25 Dose: 40 mg Miscellaneous (Carbohydrates For Hypoglycemia ) 15 - 30 gm PO UD PRN PRN Reason: Hypoglycemia Protocol Stop: 09/01/23 04:38 Miscellaneous Information (Pharmacy Glycemic Mgmt Consult) 1 each N/A UD PRN PRN Reason: Consult Stop: 09/01/23 04:38 Nitroglycerin (Nitroglycerin Sl 0.4 Mg/Tab Tab) 0.4 mg SL Q5M PRN PRN Reason: Chest Pain Stop: 09/01/23 04:38 Polyethylene Glycol (Polyethylene (Miralax) 17 Gm Pack) 17 gm PO DAILY PRN PRN Reason: Constipation Stop: 09/01/23 04:38 Rosuvastatin Calcium (Rosuvastatin Calcium 20 Mg Tab) 20 mg PO QPM [facility] Stop: 09/01/23 20:59 Spironolactone (Spironolactone 12.5 Mg Tab) 12.5 mg PO DAILY [facility] Stop: 09/01/23 11:59 Last Admin: 08/02/23 13:06 Dose: 12.5 mg
[2023-08-02] MEDS: ROSUVASTATIN CALCIUM 20 MG TAB PO SCH (19:56)
[2023-08-02] MEDS: LANTUS PER UNIT CHARGE SQ SCH (20:08)
[2023-08-03 06:46] LABS: Basophils # (auto) 0.09 K/uL (0.00-0.20); Basophils % (auto) 0.7 %; Eosinophils # (auto) 0.37 K/uL (0.00-0.50); Eosinophils % (auto) 2.9 %; Hemoglobin 13.4 g/dl (14.0-18.0); Immature Granulocytes # (auto) 0.06 K/uL (0.01-0.20); Immature Granulocytes % (auto) 0.5 %; Mean Corpuscular Hemoglobin 26.1 pg (25.0-34.0); Mean Corpuscular Hgb Conc 31.9 g/dL (32.0-36.0); Mean Corpuscular Volume 81.7 fL (80.0-100.0); Mean Platelet Volume 9.8 fL (9.4-12.4); Monocytes % (auto) 8.6 %; Neutrophils # (auto) 8.51 K/uL (1.40-6.50); Neutrophils % (auto) 66.3 %; Platelet Count 315 K/uL (130-400); RDW Coefficient of Variation 13.2 % (11.5-14.5); RDW Standard Deviation 39.1 fL (36.4-46.3); Red Blood Count 5.14 M/uL (4.70-6.10); White Blood Count 12.83 K/ul (4.8-10.8)
[2023-08-03 06:58] LABS: BUN Creatinine Ratio 19.2 (10-20); Chol HDL Ratio 4.3 (0-5); Creatinine Clr Calc Pharmacy 162.1 ml/min; Est GFR (African American) 105.8 ml/min; Est GFR (Non-African American) 91.3 ml/min; Magnesium 1.9 mg/dl (1.7-2.4); Potassium 3.3 mmol/L (3.5-5.1)
[2023-08-03] MEDS: LANTUS PER UNIT CHARGE SC ONE ×2 (08:30→20:36)
--- NOTE | 2023-08-03 09:13 | Pharmacy Report ---
Pharmacy Glycemic Short Note 2 - Date of Service August 03, 2023 - Glycemic Short BSG Results (Last 24 hours): 08/02/23 08/02/23 08/02/23 11:28 16:16 20:01 Glucose POC Glucose 218 H 181 H 188 H 08/03/23 08/03/23 06:03 07:05 Glucose 203 H POC Glucose 212 H OUTPATIENT ANTIDIABETIC REGIMEN: * No prior meds for DM * A1c = 10.3% ASSESSMENT: 08/02 * Stressors stable * Anticipate possible discharge on long-acting insulin 2nd HbA1c >10%. Will transition to higher AM dose. Will increase dose today 2nd significantly elevated AM fasting BSG * Post-prandial BSG's all >180 mg/dL yesterday. Will significantly tighten Novolog 08/01 * Type 2 diabetic admitted for hypertensive emergency * Latest A1c significantly elevated vs that from 1 year ago (7.1% -->10.3%) * Initial BSGs elevated in 300's but have since trended down with minimal insulin administered. * Will initiate basal/bolus SQ regimen using adjusted BW given BMI > 50 and initial impression that patient may be fairly insulin sensitive. Initial basal dose will be based upon adj BW and "mild" stress level. Rapid acting insulin doses will be based upon adj BW and "moderate" stress level. PLAN FOR INPATIENT GLYCEMIC CONTROL: * Basal insulin * Lantus 20 units SQ x1 now with an additional 10 units tonight if BSG >140 * Bolus insulin * NovoLog per scale ACHS or Q6hrs while NPO * Goal Range: Low 110 mg/dL - High 140 mg/dL * Correction Factor: 15 mg/dL/unit * Nutritional / Prandial insulin per carb ratio of 1 unit per 5 grams CHO consumed
--- NOTE | 2023-08-03 10:06 | Cardiology Progress Note ---
Date of Service August 03, 2023 Assessment & Plan (1) Hypertensive emergency: (2) Elevated troponin I level: (3) Acute respiratory failure with hypoxia: (4) LVH (left ventricular hypertrophy): Plan 08/02/23 Patient admitted with hypoxia/acute pulm edema and hypertensive emergency in setting of non compliance with oral antihypertensives and morbid obesity and likely untreated JOSE RAUL. Treated in ER with IV hydralazine, started on Nicardipine gtt, and IV lasix. BP improved this morning. Nicardipine gtt weaned off. Continue carvedilol 25 mg BID, lisinopril 40 mg. HCTZ was discontinued on admission in favor of IV lasix. Continue IV lasix today. Volume status improving. Oxygen saturations improving. Potassium was low this morning. Supplemented. Add spironolactone 12.5 mg for fluid status, BP support, and hypokalemia. Good diuresis overnight. Monitor I+O's. Minimally elevated troponin consistent with demand ischemia in setting of hypoxia, hypertensive urgency. Moderate/severe LVH with mild global hypokinesis noted, LVEF 45-50%. Likely hypertensive induced. Continue carvedilol, lisinopril. Adding spironolactone/furosemide. Add ASA 81 mg daily and statin given uncontrolled DM and elevated troponin. Check lipids tomorrow AM while fasting Once BP and volume status improves, consider outpatient 2 Day nuclear Lexiscan stress test given elevated troponin and mild LV dysfunction. Uncontrolled DM with Hbg A1C >10. Needs diabetic management. Needs to have sleep study and treatment for probable JOSE RAUL. 08/03/23: Interval improvement in BP and volume status since yesterday. No longer requiring supplemental O2 Potassium was low this morning and supplemented. Stable renal function. Difficult to determine if I+O's are accurate. Only 2.6 L output since admission recorded and weight only down 2.4 kg Recommend continuing current doses of carvedilol, lisinopril, spironolactone. Transition from IV lasix to oral lasix 40 mg daily Continue ASA and statin. Case discussed with Dr. [place]ay[place]. I spent a total of 30 minutes on the date of service in preparation, delivery, and documentation of the care provided to this patient, excluding any time spent in the performance of separately billed services. Estephania Stewart PA-C Department of Cardiology, [facility] This chart was completed in part utilizing Speech Voice Recognition Software. Grammatical errors, random word insertions, pronoun errors, and incomplete sentences are an occasional consequence of this system due to software limitations, ambient noise, and hardware issues. Any formal questions or concerns about the content, text, or information contained within the body of this dictation should be directly addressed to the provider for clarification. Admission and Anticipated Discharge Date Admission Date: August 02, 2023 Supervising Physician Co-Signing Physician Notes Patient was seen and personally examined. Full assessment and plan as outlined above. Care and management discussed and personally endorsed with advanced provider Clinically improved today blood pressure is controlled. Edema improved Trial of BiPAP last evening Plan as outlined above Patient willing to make significant lifestyle changes initiate treatment for obstructive sleep apnea post hospitalization Will need close clinical follow-up post discharge Spironolactone and furosemide in addition to antihypertensive regimen I spent a total of 20 minutes on the date of service in preparation, delivery, and documentation of the care provided to this patient, excluding any time spent in the performance of separately billed services. Subjective Patient resting in bed comfortably. Feeling well. SOB improved. Edema improving. No headaches or vision changes. BP trending down through med adjustments. Did not sleep well, tried CPAP but willing to keep trying No chest pain. No orthopnea. Review of Systems Review of Systems: All systems reviewed & are unremarkable except as noted in HPI & below Physical Exam Constitutional: WD/WN, vitals as above + morbidly obese; no acute distress Neck: + thick neck Respiratory: no labored breathing Auscultation: + diminished lung sounds; no crackles and no rales Cardiovascular: Rate/Rhythm: regular rate and regular rhythm Heart Sounds: no murmur (distant heart sounds) Extremities: + edema (1+ LE edema b/l ) Gastrointestinal (Abdomen): Percussion/Palpation: abdomen soft; abdomen nontender Skin: no rashes, warm and dry Neurologic: PERRL, EOMI, accommodation nl, no face palsy, no dysarthria Psychiatric: A+Ox3, euthymic affect Results & Data Vital Signs (Past 12 Hours) Vital Signs Temp Pulse Pulse Resp BP Pulse Ox O2 Del Method 08/03/23 07:07 36.9 C 67 20 144/91 H 95 Room Air 08/03/23 02:42 Room Air, CPAP 08/03/23 02:36 36.8 C 69 20 161/96 H 96 Room Air, CPAP 08/03/23 02:35 73 08/03/23 00:00 37 C 68 19 126/83 95 CPAP 08/02/23 22:45 72 22 97 Laboratory Results Cardiac Enzymes 08/02/23 08/02/23 Range/Units 11:02 16:44 Troponin I High Sens 142.5 H* 110.1 H* D (0-20) pg/ml Lipids 08/03/23 Range/Units 06:03 Triglycerides 189 H (0-150) mg/dl Cholesterol 134 (0-200) mg/dl HDL Cholesterol 31 mg/dl Cholesterol/HDL Ratio 4.3 (0-5) CBC 08/03/23 Range/Units 06:03 WBC 12.83 H (4.8-10.8) K/ul RBC 5.14 (4.70-6.10) M/uL Hgb 13.4 L (14.0-18.0) g/dl Hct 42.0 (42.0-52.0) % Plt Count 315 (130-400) K/uL Neut # (Auto) 8.51 H (1.40-6.50) K/uL Lymph # (Auto) 2.70 (1.20-3.40) K/uL [place] # (Auto) 1.10 H (0.11-0.59) K/uL Eos # (Auto) 0.37 (0.00-0.50) K/uL Baso # (Auto) 0.09 (0.00-0.20) K/uL Comprehensive Metabolic Panel 08/03/23 Range/Units 06:03 Sodium 137 (136-145) mmol/L Potassium 3.3 L (3.5-5.1) mmol/L Chloride 100 (98-107) mmol/L Carbon Dioxide 32 (21-32) mmol/L BUN 20 (6-23) mg/dl Creatinine 1.04 (0.6-1.4) mg/dl Glucose 203 H (70-99(Fasting)) mg/dl Calcium 8.0 L (8.6-10.3) mg/dl Intake and Output 08/02/23 08/03/23 08/03/23 22:59 06:59 14:59 Intake Total 240 / 936.666 120 / 936.666 Output Total 301 / 851 Balance -61 / 85.666 120 / 85.666 Intake: Oral 240 / 720 120 / 720 Output: Urine 300 / 850 # Bowel Movements / Other: # Unmeasured Voids 1 Weight 178.3 kg Weight Measurement Method Standing Scale Diagnostic Findings Telemetry reviewed: NSR in the 60-70's Medications Administered Current Inpatient Medications Acetaminophen (Acetaminophen 325 Mg Tab) 650 mg PO Q4H PRN PRN Reason: Pain or Fever Stop: 09/01/23 04:38 Aspirin (Aspirin 81 Mg Ectab) 81 mg PO QAM [facility] Stop: 09/01/23 11:59 Last Admin: 08/03/23 08:20 Dose: 81 mg Carvedilol (Carvedilol 25 Mg Tab) 25 mg PO BIDM [facility] Stop: 09/01/23 07:59 Last Admin: 08/03/23 08:19 Dose: 25 mg Dextrose (Dextrose 50% 50 Ml Syringe) 25 - 50 ml IV UD PRN; Protocol PRN Reason: Hypoglycemia Protocol Stop: 09/01/23 04:38 Enoxaparin Sodium (Enoxaparin Inj 40 Mg/0.4 Ml Syr) 40 mg SQ Q12H [facility] Stop: 09/01/23 08:59 Last Admin: 08/03/23 08:20 Dose: 40 mg Furosemide (Furosemide 40 Mg/4 Ml Vial) 40 mg IV BID17 [facility] Stop: 09/01/23 08:59 Last Admin: 08/03/23 08:21 Dose: 40 mg Glucagon (Glucagon For Inj 1 Mg Vial) 1 mg SQ UD PRN; Protocol PRN Reason: Hypoglycemia Protocol Stop: 09/01/23 04:38 Glucose (Glucose 40% Gel 15 Gm Tube) 15 - 30 gm PO UD PRN; Protocol PRN Reason: Hypoglycemia Protocol Stop: 09/01/23 04:38 Glucose (Glucose 10 Tab/Tube) 4 - 8 tab PO UD PRN; Protocol PRN Reason: Hypoglycemia Treatment Stop: 09/01/23 04:38 Nicardipine HCl 25 mg/ Sodium (Chloride) 250 mls @ 0 mls/hr IV .Q0M [facility]; Protocol Stop: 08/31/23 22:14 Last Titration: 08/02/23 09:15 Dose: 0 mg/hr, 0 mls/hr Insulin Aspart (Insulin Aspart Per Unit Charge) 0 units SC ACHS [facility] Stop: 09/01/23 04:59 Last Admin: 08/03/23 08:30 Dose: 19 units Insulin Glargine (Lantus Per Unit Charge) 0 units SC HS ONE; Protocol Stop: 08/03/23 21:01 Lisinopril (Lisinopril 40 Mg Tab) 40 mg PO QAM [facility] Stop: 09/01/23 08:59 Last Admin: 08/03/23 08:19 Dose: 40 mg Miscellaneous (Carbohydrates For Hypoglycemia ) 15 - 30 gm PO UD PRN PRN Reason: Hypoglycemia Protocol Stop: 09/01/23 04:38 Miscellaneous Information (Pharmacy Glycemic Mgmt Consult) 1 each N/A UD PRN PRN Reason: Consult Stop: 09/01/23 04:38 Nitroglycerin (Nitroglycerin Sl 0.4 Mg/Tab Tab) 0.4 mg SL Q5M PRN PRN Reason: Chest Pain Stop: 09/01/23 04:38 Polyethylene Glycol (Polyethylene (Miralax) 17 Gm Pack) 17 gm PO DAILY PRN PRN Reason: Constipation Stop: 09/01/23 04:38 Potassium Chloride (Potassium Chloride 10 Meq Tabcr) 10 meq PO BID [facility] Stop: 09/02/23 20:59 Rosuvastatin Calcium (Rosuvastatin Calcium 20 Mg Tab) 20 mg PO QPM [facility] Stop: 09/01/23 20:59 Last Admin: 08/02/23 19:56 Dose: 20 mg Spironolactone (Spironolactone 12.5 Mg Tab) 12.5 mg PO DAILY [facility] Stop: 09/01/23 11:59 Last Admin: 08/03/23 08:19 Dose: 12.5 mg
[2023-08-03] MEDS: POTASSIUM CHLORIDE CRTAB 20 MEQ TABCR PO ONE (10:36)
--- NOTE | 2023-08-03 18:12 | Hospitalist Progress Note ---
Date of Service August 03, 2023 Assessment & Plan (1) Hypertensive emergency: Plan: 37-year-old male with past medical history significant for type 2 diabetes, uncontrolled hypertension, obstructive sleep apnea noncompliant with CPAP presents with shortness of breath and found to have hypertensive urgency/emergency. For EMS his oxygen saturation 70% and heart rate of 140-160 was placed on oxygen and brought to the ER. In the ER his blood pressures 240s systolic. Tachycardic. And hyperglycemic. Elevated BNP and elevated troponin. Chest x-ray pulmonary congestion. He was initially given IV hydralazine 10 mg with no improvement of BP given IV Lasix 40 mg and IV Lopressor and And then placed on Cardene drip. Currently resting comfortably. Patient denies any chest pain . Denies any dizziness. No headache. No blurred visions or double vision. No runny nose or sore throat. No cough. Appetite is okay. No difficulty swallowing. No nausea. has on and off abdominal pain around his umbilical region but no abdominal pain currently. Normal bowel and bladder movements. Ambulates okay. patient was admitted last May 2022 with hypertensive urgency requiring Cardene drip. last admission he was also found to have possible sleep apnea as he was requiring nocturnal oxygen. He was discharged home on nocturnal oxygen and advised for sleep study. He had a home sleep study which showed moderate sleep apnea and was advised to get full formal study. But patient did not had formal sleep study yet. He is also states because of miscommunication he canceled the home oxygen set up and not using oxygen currently at home. He was discharged on Coreg, lisinopril and hydrochlorothiazide. Patient states he takes Coreg only once daily. And also he forgets and on average takes Medications only 5 times a week. Acute hypoxic respiratory failure Secondary to acute combined systolic and diastolic heart failure Hypertensive emergency Noncompliant with medications --Weaned off of supplemental oxygen --Nicardipine drip weaned off Continue carvedilol, lisinopril, spironolactone IV Lasix transition to p.o. Lasix 40 mg daily Appreciate cardiology input Will need follow-up with cardiology on discharge HCTZ on hold Acute systolic and diastolic heart failure Echo of the heart showed moderate/severe LVH with mild global hypokinesis with EF 45 to 50%, likely hypertension induced Elevated BNP with chest x-ray pulmonary congestion and also has lower extremity edema Received IV Lasix IV Continue p.o. Lasix Monitor volume status Elevated troponin Secondary to demand ischemia associated with hypertensive urgency Doubt any ACS Morbid obesity BMI 53 Counseled lifestyle changes Obstructive sleep apnea Supposed to schedule for sleep study but not done yet Not using nocturnal oxygen CPAP while in the hospital DM II Uncontrolled HbA1c 10.8 Patient prefers to avoid insulin on discharge if able Continue insulin while hospitalized personal development educator consulted Will likely discharge on metformin and daily Jardiance DVT Px: Lovenox SQ Code Status Full code Admission and Anticipated Discharge Date Admission Date: August 02, 2023 Subjective Patient is seen and examined at bedside Dyspnea much improved No new complaints today Feels well Review of Systems Review of Systems: All systems reviewed & are unremarkable except as noted in Subjective Physical Exam Physical Exam: Physical Exam: Vitals signs as noted above General Appearance:Morbidly Obese, no apparent distress Head: normocephalic, Atraumatic Eyes: normal inspection, EOMI Neck: supple, Trachea midline Respiratory/Chest: Normal breath sounds, CTA, No accessory muscle use Cardiovascular: Distant heart sounds, No murmur Abdomen/GI:Soft, Non tender, Bowel sounds present Extremities/Musculoskeletal:normal inspection, Trace edema Neurologic/Psych:AAOX3, grossly no focal neurological deficits Skin: normal color, warm Results & Data Results & Data Vital Signs (Past 12 Hours) Vital Signs Temp Pulse Pulse Resp BP Pulse Ox O2 Del Method 08/03/23 15:32 36.5 C 71 20 176/92 H 95 Room Air 08/03/23 15:29 70 08/03/23 11:20 36.6 C 71 21 127/78 96 Room Air 08/03/23 11:20 64 08/03/23 08:00 Room Air 08/03/23 07:07 36.9 C 67 20 144/91 H 95 Room Air Laboratory Results Short CBC 08/03/23 Range/Units 06:03 WBC 12.83 H (4.8-10.8) K/ul Hgb 13.4 L (14.0-18.0) g/dl Hct 42.0 (42.0-52.0) % Plt Count 315 (130-400) K/uL BMP 08/03/23 06:03 Sodium 137 Potassium 3.3 L Chloride 100 Carbon Dioxide 32 BUN 20 Creatinine 1.04 Glucose 203 H Calcium 8.0 L
[2023-08-03] MEDS: POTASSIUM CHLORIDE 10 MEQ TABCR PO SCH (20:04)
--- NOTE | 2023-08-04 07:19 | Pharmacy Report ---
Pharmacy Glycemic Short Note 2 - Date of Service August 04, 2023 - Glycemic Short BSG Results (Last 24 hours): 08/03/23 08/03/23 08/03/23 07:05 11:19 16:06 POC Glucose 212 H 169 H 164 H 08/03/23 08/04/23 19:58 07:10 POC Glucose 192 H 133 H OUTPATIENT ANTIDIABETIC REGIMEN: * No prior meds for DM * A1c = 10.3% ASSESSMENT: 08/03 * Patient received 77 units of insulin yesterday, 30 units basal, slightly above goal about 50% of the time, increase basal and give all at AM * Patient wishes to avoid insulin on discharge, seen by CDE with DC recs: * RECOMMENDATIONS AT DISCHARGE: 1.) Add Metformin ER 750mg daily. 2.) Add Jardiance 10mg daily. 3.) SMBG 1-2x/day to guide lifestyle/medication changes. 4.) Lifestyle changes- balance/moderation- increased intake of non-starchy vegetables, include protein with meals, smaller portion of starches/carbs. 08/02 * Stressors stable * Anticipate possible discharge on long-acting insulin 2nd HbA1c >10%. Will transition to higher AM dose. Will increase dose today 2nd significantly elevated AM fasting BSG * Post-prandial BSG's all >180 mg/dL yesterday. Will significantly tighten Novolog 08/01 * Type 2 diabetic admitted for hypertensive emergency * Latest A1c significantly elevated vs that from 1 year ago (7.1% -->10.3%) * Initial BSGs elevated in 300's but have since trended down with minimal in sulin administered. * Will initiate basal/bolus SQ regimen using adjusted BW given BMI > 50 and initial impression that patient may be fairly insulin sensitive. Initial basal dose will be based upon adj BW and "mild" stress level. Rapid acting insulin doses will be based upon adj BW and "moderate" stress level. PLAN FOR INPATIENT GLYCEMIC CONTROL: * Basal insulin * Lantus 35 units SQ daily * Bolus insulin * NovoLog per scale ACHS or Q6hrs while NPO * Goal Range: Low 110 mg/dL - High 140 mg/dL * Correction Factor: 15 mg/dL/unit * Nutritional / Prandial insulin per carb ratio of 1 unit per 5 grams CHO consumed
[2023-08-04 07:52] LABS: Hematocrit (blood only) 43.6 % (42.0-52.0); Hemoglobin 13.8 g/dl (14.0-18.0); Mean Corpuscular Hemoglobin 25.9 pg (25.0-34.0); Mean Corpuscular Hgb Conc 31.7 g/dL (32.0-36.0); Mean Platelet Volume 9.9 fL (9.4-12.4); Platelet Count 350 K/uL (130-400); RDW Coefficient of Variation 13.3 % (11.5-14.5); RDW Standard Deviation 39.5 fL (36.4-46.3); Red Blood Count 5.32 M/uL (4.70-6.10); White Blood Count 11.39 K/ul (4.8-10.8)
[2023-08-04 08:18] LABS: BUN Creatinine Ratio 22.3 (10-20); Calcium 8.3 mg/dl (8.6-10.3); Creatinine Clr Calc Pharmacy 179.2 ml/min; Est GFR (African American) 119.6 ml/min; Est GFR (Non-African American) 103.2 ml/min; Potassium 3.8 mmol/L (3.5-5.1)
[2023-08-04] MEDS: FUROSEMIDE 40 MG TAB PO SCH (08:19)
[2023-08-04] MEDS: LANTUS PER UNIT CHARGE SC SCH (08:25)
--- NOTE | 2023-08-04 13:06 | Cardiology Progress Note ---
Date of Service August 04, 2023 Assessment & Plan (1) Hypertensive emergency: (2) Elevated troponin I level: (3) Acute respiratory failure with hypoxia: (4) LVH (left ventricular hypertrophy): Plan 08/02/23 Patient admitted with hypoxia/acute pulm edema and hypertensive emergency in setting of non compliance with oral antihypertensives and morbid obesity and likely untreated JOSE RAUL. Treated in ER with IV hydralazine, started on Nicardipine gtt, and IV lasix. BP improved this morning. Nicardipine gtt weaned off. Continue carvedilol 25 mg BID, lisinopril 40 mg. HCTZ was discontinued on admission in favor of IV lasix. Continue IV lasix today. Volume status improving. Oxygen saturations improving. Potassium was low this morning. Supplemented. Add spironolactone 12.5 mg for fluid status, BP support, and hypokalemia. Good diuresis overnight. Monitor I+O's. Minimally elevated troponin consistent with demand ischemia in setting of hypoxia, hypertensive urgency. Moderate/severe LVH with mild global hypokinesis noted, LVEF 45-50%. Likely hypertensive induced. Continue carvedilol, lisinopril. Adding spironolactone/furosemide. Add ASA 81 mg daily and statin given uncontrolled DM and elevated troponin. Check lipids tomorrow AM while fasting Once BP and volume status improves, consider outpatient 2 Day nuclear Lexiscan stress test given elevated troponin and mild LV dysfunction. Uncontrolled DM with Hbg A1C >10. Needs diabetic management. Needs to have sleep study and treatment for probable JOSE RAUL. 08/03/23: Interval improvement in BP and volume status since yesterday. No longer requiring supplemental O2 Potassium was low this morning and supplemented. Stable renal function. Difficult to determine if I+O's are accurate. Only 2.6 L output since admission recorded and weight only down 2.4 kg Recommend continuing current doses of carvedilol, lisinopril, spironolactone. Transition from IV lasix to oral lasix 40 mg daily Continue ASA and statin. 08/04/23: Stable cardiac symptoms for discharge today BP and volume status has continuously improved from admission. Borderline elevated today but prior to AM meds. He is anxious for discharge and likely BP would trend lower in home setting, as long as he is compliant with meds. long discussion today about taking his meds daily AND being compliant with CPAP. Dietary and lifestyle changes also discussed. Discharge on current doses of carvedilol, lisinopril, spironolactone, lasix, ASA, and statin. Will need cardio, PCP, and sleep med f/u upon discharge. Plan to repeat echo in several months to re-evaluate LVEF. Also consider nuclear lexiscan stress test, but body habitus may limit imaging quality Case discussed with Dr. Samayoa. I spent a total of 30 minutes on the date of service in preparation, delivery, and documentation of the care provided to this patient, excluding any time spent in the performance of separately billed services. Estephania Stewart PA-C Department of Cardiology, [facility] This chart was completed in part utilizing Speech Voice Recognition Software. Grammatical errors, random word insertions, pronoun errors, and incomplete sentences are an occasional consequence of this system due to software limitations, ambient noise, and hardware issues. Any formal questions or concerns about the content, text, or information contained within the body of this dictation should be directly addressed to the provider for clarification. Admission and Anticipated Discharge Date Admission Date: August 02, 2023 Supervising Physician Co-Signing Physician Notes Patient was seen and personally examined. Full assessment and plan as outlined above. Care and management discussed and personally endorsed with advanced provider Clinically improved today blood pressure is controlled. Edema improved Tolerated BiPAP last evening Plan as outlined above Patient willing to make significant lifestyle changes initiate treatment for obstructive sleep apnea post hospitalization Will need close clinical follow-up post discharge Spironolactone and furosemide in addition to antihypertensive regimen I spent a total of 15 minutes on the date of service in preparation, delivery, and documentation of the care provided to this patient, excluding any time spent in the performance of separately billed services. Subjective Patient ambulating in room today. Feeling well. SOB at baseline. No chest pain. No dizziness. BP overall has improved since admission. Likely will continue to improve as outpatient in home setting rather than here. he is eager for discharge. Review of Systems Review of Systems: All systems reviewed & are unremarkable except as noted in HPI & below Physical Exam Constitutional: WD/WN, vitals as above + morbidly obese; no acute distress Neck: + thick neck Respiratory: no labored breathing Auscultation: + diminished lung sounds; no crackles and no rales Cardiovascular: Rate/Rhythm: regular rate and regular rhythm Heart Sounds: no murmur (distant heart sounds) Extremities: + edema (1+ LE edema b/l ) Gastrointestinal (Abdomen): Percussion/Palpation: abdomen soft; abdomen nontender Skin: no rashes, warm and dry Neurologic: PERRL, EOMI, accommodation nl, no face palsy, no dysarthria Psychiatric: A+Ox3, euthymic affect Results & Data Vital Signs (Past 12 Hours) Vital Signs Temp Pulse Pulse Resp BP Pulse Ox O2 Del Method 08/04/23 11:44 36.6 C 71 18 148/91 H 95 Room Air 08/04/23 10:06 69 16 150/100 H 08/04/23 08:02 64 08/04/23 08:00 Room Air 08/04/23 07:35 36.6 C 73 18 169/86 H 95 Room Air 08/04/23 03:55 36.5 C 65 20 142/87 H 96 BiPAP 08/04/23 01:07 75 17 98 Laboratory Results CBC 08/04/23 Range/Units 07:12 WBC 11.39 H (4.8-10.8) K/ul RBC 5.32 (4.70-6.10) M/uL Hgb 13.8 L (14.0-18.0) g/dl Hct 43.6 (42.0-52.0) % Plt Count 350 (130-400) K/uL Comprehensive Metabolic Panel 08/04/23 Range/Units 07:12 Sodium 136 (136-145) mmol/L Potassium 3.8 (3.5-5.1) mmol/L Chloride 101 (98-107) mmol/L Carbon Dioxide 28 (21-32) mmol/L BUN 21 (6-23) mg/dl Creatinine 0.94 (0.6-1.4) mg/dl Glucose 139 H (70-99(Fasting)) mg/dl Calcium 8.3 L (8.6-10.3) mg/dl Intake and Output 08/03/23 08/04/23 08/04/23 22:59 06:59 14:59 Intake Total 204.167 / 1894.167 850 / 1894.167 Output Total 400 / 1200 Balance -195.833 / 694.167 850 / 694.167 Intake: IV 204.167 / 204.167 niCARdipine 25 mg In Sodium 204.167 / 204.167 Chloride 0.9% 240 ml @ 0 MG/HR IV .Q0M [facility] [place] Rx#:[id number] Oral 850 / 1690 Output: Urine 400 / 1200 Other: Weight 178 kg Weight Measurement Method Standing Scale Diagnostic Findings Telemetry reviewed: NSR in the 60's Medications Administered Current Inpatient Medications Acetaminophen (Acetaminophen 325 Mg Tab) 650 mg PO Q4H PRN PRN Reason: Pain or Fever Stop: 09/01/23 04:38 Aspirin (Aspirin 81 Mg Ectab) 81 mg PO QAM [facility] [place] Stop: 09/01/23 11:59 Last Admin: 08/04/23 08:19 Dose: 81 mg Carvedilol (Carvedilol 25 Mg Tab) 25 mg PO BIDM [facility] Stop: 09/01/23 07:59 Last Admin: 08/04/23 08:19 Dose: 25 mg Dextrose (Dextrose 50% 50 Ml Syringe) 25 - 50 ml IV UD PRN; Protocol PRN Reason: Hypoglycemia Protocol Stop: 09/01/23 04:38 Enoxaparin Sodium (Enoxaparin Inj 40 Mg/0.4 Ml Syr) 40 mg SQ Q12H [facility] [place] Stop: 09/01/23 08:59 Last Admin: 08/04/23 08:19 Dose: 40 mg Furosemide (Furosemide 40 Mg Tab) 40 mg PO QAM [facility] [place] Stop: 09/03/23 08:59 Last Admin: 08/04/23 08:19 Dose: 40 mg Glucagon (Glucagon For Inj 1 Mg Vial) 1 mg SQ UD PRN; Protocol PRN Reason: Hypoglycemia Protocol Stop: 09/01/23 04:38 Glucose (Glucose 40% Gel 15 Gm Tube) 15 - 30 gm PO UD PRN; Protocol PRN Reason: Hypoglycemia Protocol Stop: 09/01/23 04:38 Glucose (Glucose 10 Tab/Tube) 4 - 8 tab PO UD PRN; Protocol PRN Reason: Hypoglycemia Treatment Stop: 09/01/23 04:38 Insulin Aspart (Insulin Aspart Per Unit Charge) 0 units SC ACHS [facility] [place] Stop: 09/01/23 04:59 Last Admin: 08/04/23 12:20 Dose: 10 units Insulin Glargine (Lantus Per Unit Charge) 35 units SC DAILY [facility]; Protocol Stop: 09/03/23 08:59 Last Admin: 08/04/23 08:25 Dose: 35 units Lisinopril (Lisinopril 40 Mg Tab) 40 mg PO QAM [facility] [place] Stop: 09/01/23 08:59 Last Admin: 08/04/23 08:19 Dose: 40 mg Miscellaneous (Carbohydrates For Hypoglycemia ) 15 - 30 gm PO UD PRN PRN Reason: Hypoglycemia Protocol Stop: 09/01/23 04:38 Miscellaneous Information (Pharmacy Glycemic Mgmt Consult) 1 each N/A UD PRN PRN Reason: Consult Stop: 09/01/23 04:38 Nitroglycerin (Nitroglycerin Sl 0.4 Mg/Tab Tab) 0.4 mg SL Q5M PRN PRN Reason: Chest Pain Stop: 09/01/23 04:38 Polyethylene Glycol (Polyethylene (Miralax) 17 Gm Pack) 17 gm PO DAILY PRN PRN Reason: Constipation Stop: 09/01/23 04:38 Rosuvastatin Calcium (Rosuvastatin Calcium 20 Mg Tab) 20 mg PO QPM [facility] [place] Stop: 09/01/23 20:59 Last Admin: 08/03/23 20:03 Dose: 20 mg Spironolactone (Spironolactone 12.5 Mg Tab) 12.5 mg PO DAILY [facility] Stop: 09/01/23 11:59 Last Admin: 08/04/23 08:20 Dose: 12.5 mg
--- NOTE | 2023-08-04 13:53 | Hospitalist Progress Note ---
Date of Service August 04, 2023 Assessment & Plan (1) Hypertensive emergency: Plan: 37-year-old male with past medical history significant for type 2 diabetes, uncontrolled hypertension, obstructive sleep apnea noncompliant with CPAP presents with shortness of breath and found to have hypertensive urgency/emergency. For EMS his oxygen saturation 70% and heart rate of 140-160 was placed on oxygen and brought to the ER. In the ER his blood pressures 240s systolic. Tachycardic. And hyperglycemic. Elevated BNP and elevated troponin. Chest x-ray pulmonary congestion. He was initially given IV hydralazine 10 mg with no improvement of BP given IV Lasix 40 mg and IV Lopressor and And then placed on Cardene drip. Currently resting comfortably. Patient denies any chest pain . Denies any dizziness. No headache. No blurred visions or double vision. No runny nose or sore throat. No cough. Appetite is okay. No difficulty swallowing. No nausea. has on and off abdominal pain around his umbilical region but no abdominal pain currently. Normal bowel and bladder movements. Ambulates okay. patient was admitted last May 2022 with hypertensive urgency requiring Cardene drip. last admission he was also found to have possible sleep apnea as he was requiring nocturnal oxygen. He was discharged home on nocturnal oxygen and advised for sleep study. He had a home sleep study which showed moderate sleep apnea and was advised to get full formal study. But patient did not had formal sleep study yet. He is also states because of miscommunication he canceled the home oxygen set up and not using oxygen currently at home. He was discharged on Coreg, lisinopril and hydrochlorothiazide. Patient states he takes Coreg only once daily. And also he forgets and on average takes Medications only 5 times a week. Acute hypoxic respiratory failure Secondary to acute combined systolic and diastolic heart failure Hypertensive emergency Noncompliant with medications --Weaned off of supplemental oxygen --Nicardipine drip weaned off Continue carvedilol, lisinopril, spironolactone IV Lasix transition to p.o. Lasix 40 mg daily Appreciate cardiology input HCTZ discontinued Needs follow-up with cardiology on discharge Will need repeat echo and possible nuclear Lexiscan stress test as outpatient Acute systolic and diastolic heart failure Echo of the heart showed moderate/severe LVH with mild global hypokinesis with EF 45 to 50%, likely hypertension induced Elevated BNP with chest x-ray pulmonary congestion and also has lower extremity edema Received IV Lasix IV Continue p.o. Lasix Monitor volume status Elevated troponin Secondary to demand ischemia associated with hypertensive urgency Doubt any ACS Morbid obesity BMI 53 Counseled lifestyle changes Obstructive sleep apnea Supposed to schedule for sleep study but not done yet Not using nocturnal oxygen CPAP while in the hospital Advised to obtain sleep study as outpatient. Patient agrees with the plan DM II Uncontrolled HbA1c 10.8 Patient prefers to avoid insulin on discharge if able Continue insulin while hospitalized senior health educator consulted Plan to discharge on metformin and Jardiance Increased to make lifestyle changes DVT Px: Lovenox SQ Code Status Full code Disposition Home Admission and Anticipated Discharge Date Admission Date: August 02, 2023 Subjective Patient is seen and examined at bedside States feeling well today Offers no new complaints Denies any chest pain, dyspnea, dizziness, nausea, vomiting, abdominal pain Plan to be discharged home today Review of Systems Review of Systems: All systems reviewed & are unremarkable except as noted in Subjective Physical Exam Physical Exam: Physical Exam: Vitals signs as noted above General Appearance:Morbidly Obese, no apparent distress Head: normocephalic, Atraumatic Eyes: normal inspection, EOMI Neck: supple, Trachea midline Respiratory/Chest: Normal breath sounds, CTA, No accessory muscle use Cardiovascular: Distant heart sounds, No murmur Abdomen/GI:Soft, Non tender, Bowel sounds present Extremities/Musculoskeletal:normal inspection, Trace edema Neurologic/Psych:AAOX3, grossly no focal neurological deficits Skin: normal color, warm Results & Data Results & Data Vital Signs (Past 12 Hours) Vital Signs Temp Pulse Pulse Resp BP Pulse Ox O2 Del Method 08/04/23 11:44 36.6 C 71 18 148/91 H 95 Room Air 08/04/23 10:06 69 16 150/100 H 08/04/23 08:02 64 08/04/23 08:00 Room Air 08/04/23 07:35 36.6 C 73 18 169/86 H 95 Room Air 08/04/23 03:55 36.5 C 65 20 142/87 H 96 BiPAP Laboratory Results Short CBC 08/04/23 Range/Units 07:12 WBC 11.39 H (4.8-10.8) K/ul Hgb 13.8 L (14.0-18.0) g/dl Hct 43.6 (42.0-52.0) % Plt Count 350 (130-400) K/uL BMP 08/04/23 07:12 Sodium 136 Potassium 3.8 Chloride 101 Carbon Dioxide 28 BUN 21 Creatinine 0.94 Glucose 139 H Calcium 8.3 L
--- NOTE | 2023-08-04 14:01 | Discharge Summary ---
Date of Service August 04, 2023 Admission HPI Per Admitting Provider 37-year-old male with past medical history significant for type 2 diabetes, uncontrolled hypertension, obstructive sleep apnea noncompliant with CPAP presents with shortness of breath and found to have hypertensive urge ncy/emergency. For EMS his oxygen saturation 70% and heart rate of 140-160 was placed on oxygen and brought to the ER. In the ER his blood pressures 240s systolic. Tachycardic. And hyperglycemic. Elevated BNP and elevated troponin. Chest x-ray pulmonary congestion. He was initially given IV hydralazine 10 mg with no improvement of BP given IV Lasix 40 mg and IV Lopressor and And then placed on Cardene drip. Currently resting comfortably. Patient denies any chest pain . Denies any dizziness. No headache. No blurred visions or double vision. No runny nose or sore throat. No cough. Appetite is okay. No difficulty swallowing. No nausea. has on and off abdominal pain around his umbilical region but no abdominal pain currently. Normal bowel and bladder movements. Ambulates okay. patient was admitted last May 2022 with hypertensive urgency requiring Cardene drip. last admission he was also found to have possible sleep apnea as he was requiring nocturnal oxygen. He was discharged home on nocturnal oxygen and advised for sleep study. He had a home sleep study which showed moderate sleep apnea and was advised to get full formal study. But patient did not had formal sleep study yet. He is also states because of miscommunication he canceled the home oxygen set up and not using oxygen currently at home. He was discharged on Coreg, lisinopril and hydrochlorothiazide. Patient states he takes Coreg only once daily. And also he forgets and on average takes Medications only 5 times a week. Past medical history. As mentioned above Past surgical history. Tonsillectomy. Palatopharyngoplasty. social history. No smoking. Alcohol occasional. No drug use. Family history. Maternal grandfather had hypertension. Heart disorder. Aunt has diabetes. Admission Exam Per Admitting Provider General- Not in distress. Head- atraumatic Eyes- PERRL. ENT- oropharynx clear Neck- supple, no JVD. Lungs- clear to auscultation no wheezing or crackles. Heart- regular rate and rhythm; no murmur, no gallop. Abdomen- normal bowel sounds, soft, nontender, no distension Extremities- b/l pretibial edema present , no erythema seen., Neuro- alert, oriented PERRL, no facial palsy; no dysarthria; moves extremities. Principal Diagnosis Acute hypoxic respiratory failure Acute combined systolic and diastolic heart failure Hypertensive emergency Uncontrolled diabetes mellitus type 2 Morbid obesity Obstructive sleep apnea Discharge Data Allergies Allergy/AdvReac Type Severity Reaction Status Date / Time No Known Allergies Verified 08/01/23 23:19 Consultations 08/01/23 22:55 ED Decision to Admit Stat 08/02/23 08:00 Consult Cardiology Routine Procedures Performed Laboratory Results WBC 11.39 K/ul (4.8-10.8) H 08/04/23 07:12 RBC 5.32 M/uL (4.70-6.10) 08/04/23 07:12 Hgb 13.8 g/dl (14.0-18.0) L 08/04/23 07:12 POC Hgb 17.0 g/dl (14.0-18.0) 08/01/23 21:44 Hct 43.6 % (42.0-52.0) 08/04/23 07:12 POC Hct 50 % (42-52) 08/01/23 21:44 MCV 82.0 fL (80.0-100.0) 08/04/23 07:12 MCH 25.9 pg (25.0-34.0) 08/04/23 07:12 MCHC 31.7 g/dL (32.0-36.0) L 08/04/23 07:12 RDW Std Deviation 39.5 fL (36.4-46.3) 08/04/23 07:12 RDW Coeff of Jorge Luis 13.3 % (11.5-14.5) 08/04/23 07:12 Plt Count 350 K/uL (130-400) 08/04/23 07:12 MPV 9.9 fL (9.4-12.4) 08/04/23 07:12 Immature Gran % (Auto) 0.5 % 08/03/23 06:03 Neut % (Auto) 66.3 % 08/03/23 06:03 Lymph % (Auto) 21.0 % 08/03/23 06:03 [place] % (Auto) 8.6 % 08/03/23 06:03 Eos % (Auto) 2.9 % 08/03/23 06:03 Baso % (Auto) 0.7 % 08/03/23 06:03 Neut # (Auto) 8.51 K/uL (1.40-6.50) H 08/03/23 06:03 Lymph # (Auto) 2.70 K/uL (1.20-3.40) 08/03/23 06:03 [place] # (Auto) 1.10 K/uL (0.11-0.59) H 08/03/23 06:03 Eos # (Auto) 0.37 K/uL (0.00-0.50) 08/03/23 06:03 Baso # (Auto) 0.09 K/uL (0.00-0.20) 08/03/23 06:03 Immature Gran # (Auto) 0.06 K/uL (0.01-0.20) 08/03/23 06:03 PT 11.1 Seconds (9.0-12.0) 08/01/23 21:07 INR 1.0 (0.9-1.1) 08/01/23 21:07 VBG pH 7.40 (7.36-7.41) 08/01/23 21:40 VBG pCO2 49 mmHg (38-50) 08/01/23 21:40 VBG pO2 52 mmHg 08/01/23 21:40 VBG HCO3 30 mmol/L 08/01/23 21:40 VBG O2 Saturation 85.0 % 08/01/23 21:40 VBG Base Excess 4.5 mEq/L 08/01/23 21:40 POC Sodium 137 mmol/L (135-144) 08/01/23 21:44 Sodium 136 mmol/L (136-145) 08/04/23 07:12 POC Potassium 4.1 mmol/L (3.3-5.0) 08/01/23 21:44 Potassium 3.8 mmol/L (3.5-5.1) 08/04/23 07:12 POC Chloride 100 mmol/L (101-112) L 08/01/23 21:44 Chloride 101 mmol/L (98-107) 08/04/23 07:12 Carbon Dioxide 28 mmol/L (21-32) 08/04/23 07:12 POC Total CO2 29 mmol/L (24-31) 08/01/23 21:44 Anion Gap 7 (3-11) 08/04/23 07:12 POC Anion Gap 13.0 mmol/L (16-25) L 08/01/23 21:44 POC BUN 19 mg/dl (7-18) H 08/01/23 21:44 BUN 21 mg/dl (6-23) 08/04/23 07:12 Creatinine 0.94 mg/dl (0.6-1.4) 08/04/23 07:12 POC Creatinine 0.9 mg/dl (0.6-1.3) 08/01/23 21:44 Est Cr Clr Drug Dosing 179.2 ml/min 08/04/23 07:12 Est GFR ( Amer) 119.6 ml/min 08/04/23 07:12 Est GFR (Non-Af Amer) 103.2 ml/min 08/04/23 07:12 BUN/Creatinine Ratio 22.3 (10-20) H 08/04/23 07:12 Glucose 139 mg/dl (70-99(Fasting)) H 08/04/23 07:12 POC Glucose 176 mg/dl (70-99) H 08/04/23 11:04 POC Glucose (other) 356 mg/dl (70-99) H* 08/01/23 21:44 Estimat Average Glucose 249 mg/dl 08/02/23 04:44 Hemoglobin A1c 10.3 % (4.5-5.6) H 08/02/23 04:44 Calcium 8.3 mg/dl (8.6-10.3) L 08/04/23 07:12 POC Ioniz Calcium Fuentes 1.10 mmol/l (1.12-1.32) L 08/01/23 21:44 Phosphorus 4.0 mg/dl (2.5-4.9) 08/03/23 06:03 Magnesium 1.9 mg/dl (1.7-2.4) 08/03/23 06:03 Total Bilirubin 0.9 mg/dl (0.2-1.0) 08/01/23 21:07 AST 35 U/L (13-39) 08/01/23 21:07 ALT 42 U/L (7-52) 08/01/23 21:07 Alkaline Phosphatase 93 U/L (34-104) 08/01/23 21:07 Troponin I High Sens 110.1 pg/ml (0-20) H* D 08/02/23 16:44 B-Natriuretic Peptide 928 pg/ml (0-100) H 08/01/23 21:07 Total Protein 8.0 gm/dl (6.0-8.3) 08/01/23 21:07 Albumin 3.8 gm/dl (3.4-5.0) 08/01/23 21:07 Globulin 4.2 gm/dl (2.5-4.0) H 08/01/23 21:07 Albumin/Globulin Ratio 0.9 (0.9-2) 08/01/23 21:07 Triglycerides 189 mg/dl (0-150) H 08/03/23 06:03 Cholesterol 134 mg/dl (0-200) 08/03/23 06:03 LDL Cholesterol, Calc 65 mg/dl 08/03/23 06:03 VLDL Cholesterol, Calc 38 mg/dl (0-30) H 08/03/23 06:03 HDL Cholesterol 31 mg/dl 08/03/23 06:03 Cholesterol/HDL Ratio 4.3 (0-5) 08/03/23 06:03 Urine Color Yellow 08/01/23 23:08 Urine Appearance Clear (Clear) 08/01/23 23:08 Urine pH 5.5 (4.5-7.5) 08/01/23 23:08 Ur Specific [place] 1.034 (1.000-1.030) H 08/01/23 23:08 Urine Protein 3+ (Negative) H 08/01/23 23:08 Urine Glucose (UA) 2+ (Negative) H 08/01/23 23:08 Urine Ketones Negative (Negative) 08/01/23 23:08 Urine Blood Negative (Negative) 08/01/23 23:08 Urine Nitrite Negative (Negative) 08/01/23 23:08 Urine Bilirubin Negative (Negative) 08/01/23 23:08 Urine Urobilinogen Negative (Negative) 08/01/23 23:08 Ur Leukocyte Esterase Negative (Negative) 08/01/23 23:08 Urine WBC (Auto) 0-5 /hpf (0-5) 08/01/23 23:08 Urine RBC (Auto) 0-2 /hpf (0-2) 08/01/23 23:08 U Hyaline Cast (Auto) 6-10 /lpf (0-2) H 08/01/23 23:08 U Epithel Cells (Auto) 3-5 /hpf (0-2) H 08/01/23 23:08 Urine Bacteria (Auto) None Seen (None Seen) 08/01/23 23:08 Hyaline Casts Present /lpf (None Presnt) A 08/01/23 23:08 Granular Casts Present /lpf (None Prsent) A 08/01/23 23:08 Nasal Screen MRSA (PCR) Negative (Negative) 08/02/23 Unknown Urine Opiates Screen Neg (Neg) 08/01/23 23:08 Ur Methadone, Qual Neg (Neg) 08/01/23 23:08 Urine Barbiturates Neg (Neg) 08/01/23 23:08 Ur Phencyclidine (PCP) Neg (Neg) 08/01/23 23:08 U Amphetamin/Meth Scrn Neg (Neg) 08/01/23 23:08 MDMA (Ecstasy) Screen Neg (Neg) 08/01/23 23:08 U Benzodiazepines Scrn Neg (Neg) 08/01/23 23:08 Ur Cocaine Metabolite Neg (Neg) 08/01/23 23:08 U Marijuana (THC) Screen Neg (Neg) 08/01/23 23:08 Adenovirus (PCR) Not Detected (NotDetected) 08/01/23 21:08 B. pertussis DNA (PCR) Not Detected (NotDetected) 08/01/23 21:08 B.parapertussis DNA PCR Not Detected (NotDetected) 08/01/23 21:08 C. pneumoniae DNA (PCR) Not Detected (NotDetected) 08/01/23 21:08 Coronavirus OC43 (PCR) Not Detected (NotDetected) 08/01/23 21:08 Coronavirus HKU1 (PCR) Not Detected (NotDetected) 08/01/23 21:08 Coronavirus 229E (PCR) Not Detected (NotDetected) 08/01/23 21:08 SARS-CoV-2 (PCR) Not Detected (NotDetected) 08/01/23 21:08 Coronavirus NL63 (PCR) Not Detected (NotDetected) 08/01/23 21:08 Human Metapneumovir PCR Not Detected (NotDetected) 08/01/23 21:08 Influenza Type A (PCR) Not Detected (NotDetected) 08/01/23 21:08 Influenza Type B (PCR) Not Detected (NotDetected) 08/01/23 21:08 M. pneumoniae (PCR) Not Detected (NotDetected) 08/01/23 21:08 Parainfluenza 1 (PCR) Not Detected (NotDetected) 08/01/23 21:08 Parainfluenza 2 (PCR) Not Detected (NotDetected) 08/01/23 21:08 Parainfluenza 3 (PCR) Not Detected (NotDetected) 08/01/23 21:08 Parainfluenza 4 (PCR) Not Detected (NotDetected) 08/01/23 21:08 RSV (PCR) Not Detected (NotDetected) 08/01/23 21:08 Entero/Rhino (PCR) Not Detected (NotDetected) 08/01/23 21:08 Impressions Chest X-Ray 08/01/23 21:07 XR chest 1V portable CLINICAL HISTORY: Dyspnea COMPARISON STUDY: Chest CT August 01, 2023 at 10:01 PM and chest radiograph May 05, 2022. FINDINGS: There is no pneumothorax thorax or pleural effusion. Moderate cardiomegaly is noted with interstitial thickening. Bilateral airspace opacities are present. IMPRESSION: 1. Cardiomegaly with interstitial thickening consistent with pulmonary edema. 2. Hazy bilateral opacities which likely reflect alveolar pulmonary edema. A superimposed infectious process is considered less likely. ACT 112: Negative or not required by law. Electronically signed by: Marito Sanders M.D. 08/02/2023 7:09 AM Chest CTA 08/01/23 21:14 Exam(s): CTA CHEST EXAM: CT Angiography Chest With Intravenous Contrast CLINICAL HISTORY: Reason for exam: PE; tachycardia; hypoxia; SOB. TECHNIQUE: Axial computed tomographic angiography images of the chest with intravenous contrast. CTDI is 28.14 mGy and DLP is 993.24 mGy-cm. Automated exposure control was utilized for the study. A dose lowering technique was utilized adhering to the principles of ALARA. MIP reconstructed images were created and reviewed. COMPARISON: No relevant prior studies available. FINDINGS: Pulmonary arteries: No central pulmonary emboli. Distal emboli cannot be entirely excluded. Aorta: No acute findings. No thoracic aortic aneurysm. Lungs: Perihilar and bibasilar atelectasis. Mild interstitial edema. No mass. Pleural space: Small right pleural effusion. No pneumothorax. Heart: Unremarkable. No cardiomegaly. No significant pericardial effusion. No evidence of RV dysfunction. Bones/joints: No acute fracture. No dislocation. Soft tissues: Unremarkable. Lymph nodes: Unremarkable. No enlarged lymph nodes. IMPRESSION: 1. No central pulmonary emboli. Distal emboli cannot be entirely excluded. 2. Perihilar and bibasilar atelectasis. Mild interstitial edema. Cardiomegaly. Electronically signed by: Suellen Amador MD 08/01/23 22:35 PM Ordered Studies 08/01/23 21:14 CT angio chest PE protocol Stat Diabetes Follow up Diabetes Follow-up Needed for HgbA1c >9% Hospital Course (1) Hypertensive emergency: 37-year-old male with past medical history significant for type 2 diabetes, uncontrolled hypertension, obstructive sleep apnea noncompliant with CPAP presents with shortness of breath and found to have hypertensive urgency/emergency. For EMS his oxygen saturation 70% and heart rate of 140-160 was placed on oxygen and brought to the ER. In the ER his blood pressures 240s systolic. Tachycardic. And hyperglycemic. Elevated BNP and elevated troponin. Chest x-ray pulmonary congestion. He was initially given IV hydralazine 10 mg with no improvement of BP given IV Lasix 40 mg and IV Lopressor and And then placed on Cardene drip. Currently resting comfortably. Patient denies any chest pain . Denies any dizziness. No headache. No blurred visions or double vision. No runny nose or sore throat. No cough. Appetite is okay. No difficulty swallowing. No nausea. has on and off abdominal pain around his umbilical region but no abdominal pain currently. Normal bowel and bladder movements. Ambulates okay. patient was admitted last May 2022 with hypertensive urgency requiring Cardene drip. last admission he was also found to have possible sleep apnea as he was requiring nocturnal oxygen. He was discharged home on nocturnal oxygen and advised for sleep study. He had a home sleep study which showed moderate sleep apnea and was advised to get full formal study. But patient did not had formal sleep study yet. He is also states because of miscommunication he canceled the home oxygen set up and not using oxygen currently at home. He was discharged on Coreg, lisinopril and hydrochlorothiazide. Patient states he takes Coreg only once daily. And also he forgets and on average takes Medications only 5 times a week. Acute hypoxic respiratory failure Secondary to acute combined systolic and diastolic heart failure Hypertensive emergency Noncompliant with medications --Weaned off of supplemental oxygen --Nicardipine drip weaned off Continue carvedilol, lisinopril, spironolactone IV Lasix transition to p.o. Lasix 40 mg daily Appreciate cardiology input HCTZ discontinued Needs follow-up with cardiology on discharge Will need repeat echo and possible nuclear Lexiscan stress test as outpatient Acute systolic and diastolic heart failure Echo of the heart showed moderate/severe LVH with mild global hypokinesis with EF 45 to 50%, likely hypertension induced Elevated BNP with chest x-ray pulmonary congestion and also has lower extremity edema Received IV Lasix IV Continue p.o. Lasix Monitor volume status Elevated troponin Secondary to demand ischemia associated with hypertensive urgency Doubt any ACS Morbid obesity BMI 53 Counseled lifestyle changes Obstructive sleep apnea Supposed to schedule for sleep study but not done yet Not using nocturnal oxygen CPAP while in the hospital Advised to obtain sleep study as outpatient. Patient agrees with the plan DM II Uncontrolled HbA1c 10.8 Patient prefers to avoid insulin on discharge if able Continue insulin while hospitalized lawn mower consulted Plan to discharge on metformin and Jardiance Increased to make lifestyle changes DVT Px: Lovenox SQ Code Status Full code Disposition Home Total Time Total Time Spent Total Time Spent (In Minutes): 54 minutes Discharge Plan Discharge Items Patient Disposition: Home - Self-Care Reason For Visit: ACUTE CHF, HTN URGENCY / EMERGENCY Discharge Diagnosis: Acute hypoxic respiratory failure Acute combined systolic and diastolic heart failure Hypertensive emergency Uncontrolled diabetes mellitus type 2 Morbid obesity Obstructive sleep apnea Activity: Per Instructions section Exercise/Sports: Gradually increase as tolerated Non-emergency contact: Primary Care Provider and Dry Mixer Call non-emergency contact if: you have any medication questions, your symptoms worsen, your pain is concerning for you and you have a fever Follow-up/Referrals: Estephania Stewart PA-C [Physician Host And Hostess] - (The Cardiology office will contact you for a follow up appointment.) Edson Licona MD [Primary Care Provider] - (Date & Time 08/09/2023 3:20 PM Provider Edson Licona MD Department Family [facility] ) Diet: Carb Consistent or DM2 and Heart Healthy Addtl Attending Provider Instructions: Follow-up with your primary care physician on 08/09/2023 3:20 PM Follow-up with your pharmacy coordinator Estephania Stewart PA-C as advised --Get sleep study as advised and follow-up with your physician for further recommendations -- Monitor your blood glucose levels and blood pressure regularly and discussed with your physician for further adjustment of medications as needed Seek immediate medical attention if your symptoms reoccur or worsen Please take all medications as instructed on discharge list below. Please call if you have any questions or problems. You can reach a [facility] hospitalist on duty at [facility] 24 hours a day by calling [phone] Call your Primary Care doctor if any of the following symptoms or problems start or get worse: * Shortness of breath or difficulty breathing * Wake up at night short of breath * Chest pain * Cough * Swelling of your hands, feet, or legs * More fatigued or tired with your normal activity * Palpitations - sudden fast heart beats WEIGHT * Weigh yourself every morning after using the bathroom. * Use the same scale. * Wear the same amount of clothing. * Write your weight down on a chart. * Call your Primary Care doctor if you gain more than 2-3 pounds in 1-2 days. MEDICATIONS * Use this discharge instruction sheet for medication instructions. * Take your medications at the time your doctor ordered. * Do not skip a dose of your medicines. * If you miss a dose of medicine, take it as soon as possible, but DO NOT DOUBLE A DOSE. * Read your medicine information when you get home. * Know all of the side effects of your medicine. If in doubt, ask your pharmacist * Call your Primary Care doctor's office if you have any side effects. * Be sure all of your doctors know what medicine and herbs you take (including cold, flu, and herbal medicine). Take the following with you to your follow-up doctor appointments: * Weight Chart * Medication List * List of questions Do not drink excessive alcohol, beer or wine. Pending Studies at Discharge: No Stand-Alone Forms: My [facility], Smoking Cessation Medications and DC Order Prescriptions: New furosemide 40 mg Tablet 40 mg PO QAM Qty: 30 0RF aspirin 81 mg Tablet,Delayed Release (Dr/Ec) 81 mg PO QAM Qty: 30 0RF spironolactone 25 mg Tablet 12.5 mg PO DAILY Qty: 30 0RF rosuvastatin [Crestor] 20 mg Tablet 20 mg PO QPM Qty: 30 0RF metformin 500 mg tablet extended release 24 hr 500 mg PO BID Qty: 60 0RF Jardiance 10 mg tablet 10 mg PO QAM Qty: 30 0RF Continued famotidine 20 mg Tablet 20 mg PO DAILY PRN (Reason: INDIGESTION/HEARTBURN) fluticasone propionate 50 mcg/actuation Aragon,Suspension 2 spray INTRANASAL DAILY PRN (Reason: Congestion) Rx Instructions: administer into each nostril carvedilol 25 mg tablet 25 mg PO BID Qty: 60 0RF Changed lisinopril [Zestril] 40 mg tablet 40 mg PO DAILY Qty: 30 0RF Discontinued hydrochlorothiazide 25 mg tablet 25 mg PO .[id number] Discharge Orders: Discharge Order (Routine); Ordered 08/04/23 Ordered By: Elkin Davis Admission Data Admit Date/Time: 08/02/23 02:56 Attending Provider: Elkin Davis Admit Provider: Rizwan Whitfield Primary Care Provider: Edson Licona Other Providers: Rizwan Whitfield; Alex Samayoa
== END 2023-08-04 15:50 | disposition home or self-care (01) | DRG 291 ==
LOC: ED 20:57 → 1E 08-02 02:56 → SUATTDRO 08-02 02:56 → 1E 08-02 04:05 → 2S 08-03 02:21